=== PATIENT | female | born 1950 | race Caucasian/White ===

== ENCOUNTER 2020-04-14 13:02 | Outpatient (CLI) | payer MEDICARE, SELFPAY ==
--- NOTE | ~2020-04-14 | XR_ITS ---
XR abdomen/kub 1V DATE: 04/14/2020 13:22 INDICATION: Kidney calculus follow-up TECHNIQUE: AP projection, 2 views COMPARISON: 10/13/2019 KUB FINDINGS: There has been interval removal of left internal urinary stent since 10/13/2019. No urinary tract calcifications are evident. There is a moderately prominent amount of fecal material in the colon. No bowel obstruction is eviden t. The psoas shadows are intact. No visceromegaly is detected. Osteopenia. IMPRESSION: Removal of left internal urinary stent; no urinary tract calcifications are evident Reviewed, dictated and finalized at [facility]. Reviewed, dictated and finalized at location A. IMPRESSION: Removal of left internal urinary stent; no urinary tract calcificat ions are evident
== END 2020-04-14 13:03 | disposition home or self-care (01) ==
LOC: ANHIMG 13:14
PROVIDERS: PCP Family Medicine; Visit Provider Urology
DX: N20.0 Calculus of kidney (principal)
CPT/HCPCS: 74018

== ENCOUNTER → 2020-06-24 14:28 | Outpatient (CLI) | payer MEDICARE, OTHER, SELFPAY ==
--- NOTE | ~2020-06-24 | MM_ITS ---
EXAMINATION: MM screening naomi BI w елена HISTORY: Screening TECHNIQUE: Craniocaudal and mediolateral oblique 3-D tomosynthesis images were obtained and synthetic 2-D images were generated. CAD analysis was submitted and interpreted. COMPARISON: Comparison to multiple prior studies sequentially, with oldest reviewed study dated 09/21. BREAST PARENCHYMAL COMPOSITION: There are scattered areas of fibroglandular density. FINDINGS: There is no evidence of suspicious mass, calcification, or architectural distortion to sugg est malignancy in either breast. There has been no suspicious interval change. IMPRESSION: 1. No mammographic evidence of malignancy. 2. Recommend routine screening mammography in one year. BI-RADS Category 1: Negative Reviewed, dictated and finalized at location A.
== END ==
PROVIDERS: PCP Family Medicine; Visit Provider Family Medicine
DX: Z12.31 Encounter for screening mammogram for malignant neoplasm of breast (principal)
CPT/HCPCS: 77063; 77067

== ENCOUNTER 2020-11-09 10:40 | Outpatient (CLI) | payer MEDICARE, SELFPAY ==
--- NOTE | ~2020-11-09 | XR_ITS ---
EXAMINATION: XR abdomen/kub 1V EXAM DATE: 11/09/2020 11:15 INDICATION: Kidney stone. TECHNIQUE: Frontal projection of the upper abdomen, frontal projection lower abdomen/pelvis for inter pretation. Comparison is made to prior examination from 04/14/2020. FINDINGS: There is moderate amount of colonic stool and gas. No small bowel dilation, nonobstructiv e bowel gas pattern. There are no suspicious calcifications identified. There is no organomegaly suspected. There are bony degenerative changes. IMPRESSION: No suspicious calcifications identified. Reviewed, dictated and finalized at location A. /[employer]
== END 2020-11-09 10:41 | disposition home or self-care (01) ==
LOC: ANHIMG 10:46
PROVIDERS: PCP Family Medicine; Visit Provider Urology
DX: N20.0 Calculus of kidney (principal)
CPT/HCPCS: 74018

== ENCOUNTER 2021-12-07 10:16 | Outpatient (CLI) | payer MEDICARE, SELFPAY ==
--- NOTE | ~2021-12-07 | XR_ITS ---
EXAMINATION: XR abdomen/kub 1V INDICATION: Calculus of the kidney TECHNIQUE: Supine views of the abdomen were obtained on 2 radiographs. COMPARISON: 11/09/2020 FINDINGS: No urolithiasis is identified. The bowel gas pattern is normal. There are phleboliths of th e left pelvis. There is mild osteoarthritis of the hips. The bowel gas pattern is normal. IMPRESSION: 1. No urolithiasis identified. Reviewed, dictated and finalized at location A. 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
== END 2021-12-07 10:17 | disposition home or self-care (01) ==
LOC: ANHIMG 10:26
PROVIDERS: PCP Hospitalist; Visit Provider Nurse Practitioner Adult Health
DX: N20.0 Calculus of kidney (principal)
CPT/HCPCS: 74018

== ENCOUNTER 2022-01-09 12:49 | Outpatient (CLI) | payer MEDICARE, SELFPAY ==
--- NOTE | ~2022-01-09 | XR_ITS ---
EXAMINATION: XR abdomen/kub 1V INDICATION: Gross hematuria TECHNIQUE: Supine views of the abdomen were obtained on 2 radiographs. COMPARISON: 12/07/2021 FINDINGS: No urolithiasis is identified. The bowel gas pattern is normal. There are phleboliths of th e pelvis. Mild osteoarthritis is noted in the hips. IMPRESSION: 1. No urolithiasis identified. Reviewed, dictated and finalized at location B.
--- NOTE | ~2022-01-09 | CT_ITS ---
EXAMINATION: CT abdomen pelvis wo/w con DATE: 01/09/2022 13:33 INDICATION: Gross hematuria TECHNIQUE: Computed tomography (CT) of the abdomen and pelvis was performed without and with 130 cc O mnipaque 350 intravenous contrast. The dose-length product was 2700.52 mGy-cm. Automated exposure con trol and iterative reconstruction technique were employed. COMPARISON: CT dated 09/09/2019. FINDINGS: Lung bases are unremarkable. No significant pleural or pericardial effusion. Heart size nor mal. There is moderate atherosclerosis without aneurysm. Fatty infiltration of the liver. The spleen, pancreas are unremarkable. There is nodular thickening o f the adrenal glands with low-density nodules in both adrenal glands, likely benign adenomas, largest in the left measuring 2 x 1.2 centimeters. There are bilateral renal cysts, largest in the right kid trish posteriorly measuring 4.4 cm no abnormally enhancing masses. Ureters are normal in course and sarmad iber. There is small amount of nondependent gas in the bladder, likely from recent instrumentation. N o significant bladder wall thickening. No free air or free fluid. Small fat-containing umbilical quinten ia. No abnormal pelvic masses or fluid collections. Colonic diverticulosis without evidence for diver ticulitis. Gallbladder is present. Mild-moderate lumbar spondylosis with grade 1 degenerative spondyl olisthesis at L4-5. No focal lytic or blastic lesions. IMPRESSION: 1. No findings to account for hematuria. 2: Bilateral renal cysts. Reviewed, dictated and finalized at location A.
[2022-01-09 13:20] LABS: Estimated Glomerular Filt Rate > 60
== END 2022-01-09 12:50 | disposition home or self-care (01) ==
LOC: ANHIMG 12:53
PROVIDERS: PCP Hospitalist; Visit Provider Nurse Practitioner Adult Health
DX: R31.0 Gross hematuria (principal); N28.1 Cyst of kidney, acquired
CPT/HCPCS: 74018; 74178; Q9967

== ENCOUNTER → 2022-02-24 13:15 | Outpatient (CLI) | payer MEDICARE, OTHER, SELFPAY ==
--- NOTE | ~2022-02-24 | MM_ITS ---
EXAMINATION: MM screening naomi BI w елена HISTORY: Screening mammogram TECHNIQUE: Craniocaudal and mediolateral oblique 3-D tomosynthesis images were obtained and synthetic 2-D images were generated. CAD analysis was submitted and interpreted. COMPARISON: 06/24/2020, 07/10/2019, 03/23/2017 bilateral screening mammogram examinations BREAST PARENCHYMAL COMPOSITION: The breasts are almost entirely fatty. FINDINGS: Focal asymmetries are noted in the subareolar areas of the breasts. Otherwise there is no e vidence of suspicious mass, calcification, or architectural distortion to suggest malignancy in eithe r breast. There has been no other suspicious interval change. IMPRESSION: 1. Focal bilateral subareolar asymmetries 2. Diagnostic bilateral mammogram is recommended with ultrasound if required BI-RADS Category 0: Incomplete: Needs additional imaging evaluation. Reviewed, dictated and finalized at location A.
== END ==
PROVIDERS: PCP Obstetrics & Gynecology; Visit Provider Hospitalist
DX: Z12.31 Encounter for screening mammogram for malignant neoplasm of breast (principal); R92.8 Other abnormal and inconclusive findings on diagnostic imaging of breast
CPT/HCPCS: 77063; 77067

== ENCOUNTER → 2022-03-21 09:12 | Outpatient (CLI) | payer MEDICARE, OTHER, SELFPAY ==
--- NOTE | ~2022-03-21 | MM_ITS ---
EXAMINATION: MM diagnostic naomi BI w елена HISTORY: Focal bilateral subareolar mammographic asymmetries reported on 02/24/2022 screening mammogram TECHNIQUE: Additional 3-D tomosynthesis images of both breasts were performed and synthetic 2-D image s were generated. Bilateral rotated medially rotated lateral CC views. CAD analysis was submitted and interpreted. COMPARISON: 02/24/2022, 06/24/2020, 07/10/2018 bilateral screening mammogram examinations FINDINGS: No suspicious mass or architectural distortion, malignant calcification, skin thickening or retraction or significant new or developing density is detected. IMPRESSION: 1. No mammographic evidence of malignancy 2. Routine annual mammographic screening is recommended BI-RADS Category 1: Negative Reviewed, dictated and finalized at location A.
== END ==
PROVIDERS: PCP Hospitalist; Visit Provider Hospitalist
DX: R92.8 Other abnormal and inconclusive findings on diagnostic imaging of breast (principal)
CPT/HCPCS: 77062; 77066; G0279

== ENCOUNTER 2022-08-23 09:00 | Outpatient (CLI) | payer MEDICARE, SELFPAY | END 2022-08-23 09:01 | disposition home or self-care (01) | LOC: ANHAUDIO 09:02 | PROVIDERS: PCP Hospitalist; Visit Provider Hospitalist | DX: Z01.10 Encounter for examination of ears and hearing without abnormal findings (principal) | CPT/HCPCS: 99199 ==

== ENCOUNTER 2022-08-24 01:09 | Day surgery (SDC) | payer MEDICARE, SELFPAY ==
[2022-08-15 10:00] VITALS: BMI 43.9
[2022-08-24 09:43] VITALS: BP 147/67; PULSE 77; RESP 20; TEMP 36.1; O2SAT 96
[2022-08-24] MEDS: LACTATED RINGERS 1,000 ML 150 ML IV CONT (09:52)
--- NOTE | 2022-08-24 10:18 | PM.HPGS ---
History of Present Illness History of Present Illness Consent: Risks, benefits, and alternatives have been discussed and questions answered. Patient agrees to proceed with procedure. Chief complaint: Hx of colon polyps Narrative: Lorna Huntley is a 72 year old female Presents for screening colonoscopy. Patient's current weight appetite and bowel movements are normal. Patient denies abdominal pain. She has had no bleeding. Family history is noncontributory. Patient has a history of adenomatous colon polyp removed from the colon 2014. Patient presents today for neoplasia screening colonoscopy. Review of Systems Review of Systems: Review of systems noncontributory. [facility] Past Medical History Medical History (Updated 08/24/22 @ 10:19 by Inderjit Bledsoe MD) Abscess of right lower extremity Chronic allergic rhinitis Chronic lower back pain Outpatient MRI May 2019 demonstrating mild spondylosis Herpes zoster dermatitis 2008 Morbid obesity Obstructive sleep apnea Polysomnogram 2014 recommended CPAP of 6 Osteopenia after menopause Bone density scan April 2019 Urolithiasis Surgical History Surgical History (Updated 09/10/19 @ 05:29 by Marietta Cotton DO) H/O colonoscopy with polypectomy X4 History of tonsillectomy and adenoidectomy Status post open reduction with internal fixation of fracture Right ankle February 2009 Family History Family History (Updated 09/10/19 @ 05:35 by Marietta Cotton DO) Father , at 94 years old CHF (congestive heart failure) COPD (chronic obstructive pulmonary disease) Mother , at 58 years old Liver cancer Social History Social History (Updated 09/10/19 @ 07:03 by Marietta Cotton DO) Social History: The patient reports that she quit smoking in 2007. She denies any alcohol use or illicit substance use. She has been for 47 years. She has 2 adult children who are healthy. 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 Smoking packs per day: 1.5 Smoking cigarettes per day: 30.0 Years smoked: 40 Smoking pack-years: 60.00 Smoking status: Former smoker Tobacco type: cigarettes Alcohol intake: current Alcohol use details: rarely Substance use: never Substance use type: does not use Living arrangements: with family Gender identity (if verbalized by the patient): Female Spiritual care concerns: No Agree to blood products: No Meds Home Medications and Allergies Home Medications Medication Instructions Recorded Confirmed Type fluticasone furoate 100 2 inh inhalation DAILY 08/15/22 08/24/22 History mcg/actuation blister powder for inhalation (Arnuity Ellipta) oxybutynin chloride 5 mg tablet 10 mg PO TID 08/15/22 08/24/22 History Allergies Allergy/AdvReac Type Severity Reaction Status Date / Time shrimp Allergy Unknown NAUSEA Verified 08/24/22 09:40 Vital Signs Vital Signs - 24 hr 08/24/22 09:43 Temperature 96.9 F L Pulse Rate 77 Respiratory Rate 20 Blood Pressure 147/67 H Pulse Oximetry 96 Oxygen Delivery Room Air Exam Narrative: Physical exam reveals patient be alert. Vital signs stable. HEENT exam is unremarkable. Patient is anicteric. Lungs are clear to auscultation and percussion. Heart is without murmur or extra sounds. Abdomen Is obese. bowel sounds present soft nontender with no organomegaly. Digital external rectal exam is normal. Assessment and Plan Assessment and plan (1) History of colon polyps: Code(s): Z86.010 - Personal history of colonic polyps Status: Acute Assessment and Plan: Patient has a history of colon polyps. Most recently adenomatous colon polyp removed from the colon 2014. Plan for surveillance colon stools under this a 5 year intervals.
--- NOTE | 2022-08-24 11:13 | WPDANESEPPF ---
Anes - Initial Pre Proc Eval Procedure: Operation Date: 08/24/22 10:45 Proposed Procedures p Screening Colonoscopy - Inderjit Bledsoe MD Date/Time: 08/24/22 11:13 Surgeon: Inderjit Bledsoe MD Pre Op Diagnosis: Hx of colon polyps Patient Data Age: 72 Gender: F Height: 1.57 m Weight: 109.6 kg Last Vital Signs Temp 96.9 F L 08/24/22 09:43 Pulse 77 08/24/22 09:43 Resp 20 08/24/22 09:43 BP 147/67 H 08/24/22 09:43 Pulse Ox 96 08/24/22 09:43 O2 Del Method Room Air 08/24/22 09:43 Allergies Allergy/AdvReac Type Severity Reaction Status Date / Time shrimp Allergy Unknown NAUSEA Verified 08/24/22 09:40 Home Medications Medication Instructions Recorded Confirmed Type fluticasone furoate 100 2 inh inhalation DAILY 08/15/22 08/24/22 History mcg/actuation blister powder for inhalation (Arnuity Ellipta) oxybutynin chloride 5 mg tablet 10 mg PO TID 08/15/22 08/24/22 History Patient hx anesthesia problems: none Family hx anesthesia problems: none Results Review: All pre-operative results and documents have been reviewed as part of the pre-operative evaluation. [facility] Past Medical History Medical History (Updated 08/24/22 @ 10:19 by Inderjit Bledsoe MD) Abscess of right lower extremity Chronic allergic rhinitis Chronic lower back pain Outpatient MRI May 2019 demonstrating mild spondylosis Herpes zoster dermatitis 2008 Morbid obesity Obstructive sleep apnea Polysomnogram 2014 recommended CPAP of 6 Osteopenia after menopause Bone density scan April 2019 Urolithiasis Surgical History Surgical History (Updated 09/10/19 @ 05:29 by Marietta Cotton DO) H/O colonoscopy with polypectomy X4 History of tonsillectomy and adenoidectomy Status post open reduction with internal fixation of fracture Right ankle February 2009 Family History Family History (Updated 09/10/19 @ 05:35 by Marietta Cotton DO) Father , at 94 years old CHF (congestive heart failure) COPD (chronic obstructive pulmonary disease) Mother , at 58 years old Liver cancer Social History Social History (Updated 09/10/19 @ 07:03 by Marietta Cotton DO) Social History: The patient reports that she quit smoking in 2007. She denies any alcohol use or illicit substance use. She has been for 47 years. She has 2 adult children who are healthy. 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 Smoking packs per day: 1.5 Smoking cigarettes per day: 30.0 Years smoked: 40 Smoking pack-years: 60.00 Smoking status: Former smoker Tobacco type: cigarettes Alcohol intake: current Alcohol use details: rarely Substance use: never Substance use type: does not use Living arrangements: with family Gender identity (if verbalized by the patient): Female Spiritual care concerns: No Agree to blood products: No Anes - Eval Final PreProcedure Day of Procedure 08/24/22 11:13 Patient weight: morbidly obese Heart: regular rate and rhythm Lungs: clear to auscultation Airway: Mallampati scale class III Neurological: alert and oriented Last oral intake: >/= 8 hours ASA classification: III Emergent: no Anesthetic plan: proceed Anesthesia type and monitoring: general GIVS and standard monitoring Results Review: All pre-operative results and documents have been reviewed as part of the pre-operative evaluation. Informed Consent: The patient's anesthetic plan and its attendant risks and benefits were discussed with the patient/family/POA. Questions were solicited and answers provided to the satisfaction of the patient/family/POA.
[2022-08-24 11:28] VITALS: BP 143/103; PULSE 76; RESP 20; O2SAT 95
[2022-08-24 11:38] VITALS: BP 146/71; PULSE 76; RESP 20; O2SAT 96
[2022-08-24 11:48] VITALS: BP 141/71; PULSE 70; RESP 20; O2SAT 97
== END 2022-08-24 11:52 | disposition home or self-care (01) ==
PROVIDERS: PCP Hospitalist; Visit Provider Internal Medicine Gastroenterology
PROC: 0DJD8ZZ Inspection of Lower Intestinal Tract, Via Natural or Artificial Opening Endoscopic (ICD-10-PCS; CPT 45378; principal; 2022-08-24 10:45)
DX: Z12.11 Encounter for screening for malignant neoplasm of colon (principal); Z86.010 Personal history of colon polyps; K57.30 Diverticulosis of large intestine without perforation or abscess without bleeding; K64.8 Other hemorrhoids; E66.01 Morbid (severe) obesity due to excess calories; Z68.41 Body mass index [BMI] 40.0-44.9, adult; G47.33 Obstructive sleep apnea (adult) (pediatric); Z87.891 Personal history of nicotine dependence
CPT/HCPCS: G0105; J2704; J7120

== ENCOUNTER 2022-09-25 08:53 | Outpatient (CLI) | payer MEDICARE, SELFPAY | END 2022-09-25 08:54 | disposition home or self-care (01) | LOC: ANHAUDIO 08:54 | PROVIDERS: PCP Hospitalist; Visit Provider Hospitalist | DX: Z01.10 Encounter for examination of ears and hearing without abnormal findings (principal) | CPT/HCPCS: 92557; 92567 ==

== ENCOUNTER 2024-07-17 10:15 | Outpatient (RCR) | payer MEDICARE, SELFPAY ==
--- NOTE | 2024-05-14 09:58 | OPREHPOC ---
Outpatient Therapy Plan of Care This is a Multidisciplinary Plan of Care that may contain components documented by all disciplines (PT, OT, and ST.) PT Problem 1 PT Problem #1 Knowledge Deficit PT Goal 1 Goal Pt to be IND with issues HEP Target Visit 10 PT Problem 2 PT Problem #2 Pain PT Goal 1 Goal Pt to report hip/back pain no greater than 3/10 in the last week. Target Visit 10 PT Goal 2 Goal Pt to report 75% improvement in overall symptoms. Target Visit 10 PT Problem 3 PT Problem #3 Impaired Strength PT Goal 1 Goal Pt to improve hip abduction strength to 4/5 brandin. Target Visit 10 PT Goal 2 Goal Pt to ambulate with neutral pelvic alignment. Target Visit 10 PT Problem 4 PT Problem #4 Impaired Strength PT Goal 1 Goal Pt to improve 5xSTS from 19s to 15s.
--- NOTE | 2024-05-14 09:59 | PTOPEVAL1 ---
Assessment and note entered by Radha Travis, PT, DPT Evaluation Information Assessment Status Evaluation Diagnosis L hip trochanteric bursitis, low back pain ICD-10 Condition Codes (PT) Pain in low back M54.50,Pain in left hip M25.552 Onset gradual on the last couple of years, worse in the last year Subjective Information Pt states she has fluctuating pain, from mid back down to her feet at times. She states sometimes she can move well and at other times she has a difficulty moving at all. Her biggest complaints are having difficulty lifting her legs into the car, doing stairs, and walking through the grocery store. She states sitting or laying down takes her pain away. Pt states she is fairly sedentary. Reported Pain Level Pain Score 0: Self Report Assessment PT Clinical Summary Lorna presents to therapy today for her initial evaluation with a diagnosis of L hip bursitis and low back pain. Today she demonstrates good hip ROM with decreased hip strength brandin L>R. She ambulates with an uncompensated Trendelenburg pattern and an increase heel strike on the R. Pain and weakness has limited her mobility. Skilled therapy services are indicated to address the deficits noted above, manage pain, and to improve functional mobility. Plan of Care Interventions Electrical Stimulation,Gait Training,Hot Pack/Cold Pack,Manual Therapy,Neuro Re-education,Patient/ Caregiver Educati,Therapeutic Activities, Therapeutic Exercise PT Services Indicated Yes Treatment Frequency and 2x/wk for 10 visits Duration These treatments will address the objective and functional deficits as defined above. The patient will be advanced safely and appropriately in order for the patient to progress towards his/her prior level of function. Additional exercises will be introduced and as well as a comprehensive home exercise program upon discharge, if needed, ?to ensure carryover of functional gains achieved in the clinic. This treatment plan has been reviewed and agreement upon by the patient.
--- NOTE | 2024-05-28 07:57 | PCPTNOTE ---
Patient called & cancelled scheduled appointment this date, she did not give a reason why.
--- NOTE | 2024-06-11 09:53 | PCPTNOTE ---
Patient was canceled 06/04/24 due to therapist out with illness.
--- NOTE | 2024-06-11 09:58 | PCPTNOTE ---
Patient was canceled 06/06/24 due to therapist out with illness.
--- NOTE | 2024-06-18 14:17 | PCPTNOTE ---
Patient called & cancelled scheduled appointment this date due to going out of town.
--- NOTE | 2024-07-17 14:28 | PTOPDC ---
Assessment and note entered by Radha Travis, PT, DPT Evaluation Information Assessment Status Progress Diagnosis L hip trochanteric bursitis, low back pain ICD-10 Condition Codes (PT) Pain in low back M54.50,Pain in left hip M25.552 Onset gradual on the last couple of years, worse in the last year Subjective Information Pt states for a while she was doing better, it feels like she has regressed some but not back to where she started. She states since then life has been really hectic and she has been doing her exercises less, her pain has since increased. Her hips feel better since starting, she feels like she has better ROM, her back is a little better but not pain free. She states her has to have major surgery without any assist from family. She states she would like exercises to work on while she cannot leave the house. Reported Pain Level Pain Score 4: Self Report Assessment PT Clinical Summary Pt has completed 9 visits of skilled therapy to treat her low back and hip pain. She is making progress towards her therapy goals. Pts HEP was updated today. She has elected to continue her HEP and wishes to be d/c'ed at this time as her is having a surgery. Pt was educated to continue her HEP. It was recommended pt continue therapy, plans to return in a couple of months.
== END 2024-07-17 15:29 | disposition home or self-care (01) ==
LOC: ANHGOSHPT 10:15
PROVIDERS: PCP Family Medicine Sports Medicine; Visit Provider Orthopaedic Surgery
DX: M70.62 Trochanteric bursitis, left hip (principal); M47.816 Spondylosis without myelopathy or radiculopathy, lumbar region
CPT/HCPCS: 97110; 97112; 97140; 97161; 97530

== ENCOUNTER 2025-03-02 22:53 | Inpatient (IN) | payer MEDICARE, SELFPAY ==
--- NOTE | ~2025-03-02 | XR_ITS ---
EXAMINATION: XR retrograde pyelo w/stent RT DATE: 03/04/2025 12:35 INDICATION: Right internal ureteral stent placement TECHNIQUE: Fluoroscopic images from a right internal ureteral stent placement are submitted for rubi chapman 21 seconds of fluoroscopy time. FINDINGS: There is a right double-J internal ureteral stent projecting in expected position, with proximal [place] loop at the level of the renal pelvis and distal loop in the pelvis within the bladder lumen. IMPRESSION: 1. Right internal ureteral stent placement. Please refer to real-time procedural findings for detai ls. Reviewed, dictated and finalized at location A. IMPRESSION: 1. Right internal ureteral stent placement. Please refer to real-time procedu ral findings for details.
--- NOTE | ~2025-03-02 | CT_ITS ---
EXAMINATION: CT abdomen pelvis wo con DATE: 03/05/2025 10:19 INDICATION: Renal stent placement TECHNIQUE: Computed tomography (CT) of the abdomen and pelvis was performed without intravenous contr ast. Automated exposure control and iterative reconstruction technique were employed. The dose-length product was 975.98 mGy-cm. COMPARISON: 03/02/2025 FINDINGS: Mild bibasilar atelectasis. Heart size is normal. Atherosclerotic coronary artery calcific location. No pericardial or pleural effusion. Liver, spleen and gallbladder are normal. Moderate fatty atrophy of the pancreas with small dystrophic calcification at the tail the pancreas likely sequela of chroni c pancreatitis. Bilateral low-attenuation adrenal adenomas. Bilateral renal cysts the largest at the upper pole the right kidney measuring 3.9 cm. 6 mm hypodense likely proteinaceous/hemorrhagic cyst at the upper pole of the right kidney. Bilateral nonobstructing nephrolithiasis with 2 stones in the ri ght kidney the largest measuring up to 5 mm in the lower pole and with additional 2 mm stone at the u pper pole the right kidney and 3 mm stone at the peripheral the left kidney. Right internal ureteral stent with loops formed in the right renal pelvis and in the bladder. No stones in the right ureter. No hydronephrosis. There is moderate colonic diverticulosis with a sigmoid predominance and without a djacent inflammatory change to suggest diverticulitis. Small bowel and appendix are normal. Bladder i s unremarkable. Anteverted uterus is normal. No free intraperitoneal gas or fluid. No pathologically enlarged abdominal or pelvic lymphadenopathy. Small fat-containing umbilical hernia. Mild thoracolumb ar dextrocurvature with moderate spondylosis. IMPRESSION: 1. Bilateral nonobstructing nephrolithiasis with no hydronephrosis or ureteral stones along side a ri ght internal ureteral stent which is in expected position. Reviewed, dictated and finalized at location A. IMPRESSION: 1. Bilateral nonobstructing nephrolithiasis with no hydronephrosis or ureteral stones along side a right internal ureteral stent which is in expected position .
--- NOTE | ~2025-03-02 | XR_ITS ---
Supine and upright views of the abdomen Clinical history: Right UPJ stone Findings: Bowel gas pattern is nonspecific. No evidence for obstruction or free air. Probable small r ight lower pole renal stone. Osseous structures are intact. Impression: Small right lower pole renal stone. Reviewed, dictated and finalized at location . Impression: Small right lower pole renal stone.
--- NOTE | ~2025-03-02 | XR_ITS ---
XR abdomen/kub 1V 03/05/2025 10:23 Indication: Renal stent placement Procedure: KUB Comparison: 03/03/2024 Findings: There is a 3 mm right renal stone in the lower pole. There is a right internal ureteral ileana nt in expected position. Bowel gas pattern nonobstructive. Moderate colonic fecal loading. There are pelvic phleboliths. No calcifications are identified in the expected course of ureter. Moderate lumba r spondylosis with dextroscoliosis. No acute osseous abnormality. Impression: 1: Right nephrolithiasis. Reviewed, dictated and finalized at location A. Impression: 1: Right nephrolithiasis.
--- NOTE | ~2025-03-02 | CT_ITS ---
EXAMINATION: CT abdomen pelvis wo con DATE: 03/02/2025 23:47 INDICATION: R flank pain, hx stones TECHNIQUE: Computed tomography (CT) of the abdomen and pelvis was performed without intravenous contr ast. Automated exposure control and iterative reconstruction technique were employed. The dose-length product was 1522.01 mGy-cm. COMPARISON: 01/09/2022. FINDINGS: Lower thorax: Mild bibasilar scar/atelectasis. Coronary artery calcifications. Liver: Normal. Biliary/Gallbladder: Gallbladder is normal. No bile duct dilation. Pancreas: Partial fatty replacement. Spleen: Normal. Adrenals:Bilateral adrenal adenomas Kidneys: Multiple simple bilateral renal cysts. Punctate nonobstructing left renal calcifications. No left hydronephrosis. Mild right pelviectasis and caliectasis. 6 cm calcification in the right UPJ. A dditional nonobstructing punctate right-sided calcifications are also present. GI tract: Small hiatal hernia. No small or large bowel dilation. Normal appendix. Diverticulosis with out diverticulitis. Mesentery/Peritoneum: No ascites, mass, or free air. Retroperitoneum: No mass. Atherosclerotic calcifications of intra-abdominal arterial vessels. Pelvis: Pelvic organs are within normal limits. Soft Tissues: Small fat-containing uncomplicated appearing umbilical hernia. Bones: No acute osseous finding. IMPRESSION: 6 mm stone at the right UPJ causing mild obstructive uropathy. Reviewed, dictated and finalized at location K.
--- OUTSIDE RECORDS SUMMARY | 2025-03-02 22:55 | XMS_ITS | Clinical Summary ---
Author Organization [facility] [place] Address [address] [place] [address] Care Team Providers Care Phlebotomy Director Name Role Phone Mary Sharpe NP Primary Care Provider Adelina Mac MD Unavailable Dagoberto Carmona MD Unavailable [phone] Allergies Active Allergy Reactions Criticality Noted Date Comments Shellfish Containing Products Vomiting Low 2020 Shrimp Allergy Medications UNABLE TO FIND Take 1 each by mouth daily Med Name: Tumeric Active levocetirizine (XYZAL) 5 mg tablet Take 1 tablet (5 mg total) by mouth every evening Active fluticasone propionate (FLONASE) 50 mcg/actuation nasal spray Administer 2 sprays into each nostril daily 3 each 4 5 Active oxyBUTYnin XL (DITROPAN XL) 15 mg 24 hr tablet Take 1 tablet (15 mg total) by mouth daily 90 tablet 1 5 Active fluticasone furoate (ARNUITY) 200 mcg/actuation inhalerIndicati ons:Maintenance Therapy for Asthma Inhale 1 puff daily Rinse mouth with water after use. Do not swallow. 30 each 1 5 Active albuterol HFA (PROVENTIL HFA,VENTOLIN HFA,PROAIR HFA) 90 mcg/actuation inhaler Inhale 2 puffs every 6 (six) hours as needed for wheezing 1 each 4 5 11/25/19 26 Active nystatin creamIndication s:Intertrigo Apply topically 2 (two) times a day To rash between breast and base of scalp 30 g 1 4 02/22/20 25 Active Problems Problem Noted Date Diagnosed Date Slow transit constipation 11/25/2024 Assessment & Plan (11/25/2024 11:00 AM MECHANICAL ENGINEERING TECHNICIAN): Improved with otc magnesium daily. Continue magnesium Closed fracture of left distal tibia 02/22/2024 Assessment & Plan (02/22/2024 8:30 PM CDT): Healed clinically. Wean out of boot. Offered PT referral but deferred. monitor Senile osteopenia 01/24/2024 Assessment & Plan (02/22/2024 8:28 PM CDT): Chronic. Encouraged weightbearing exercise as able, will be due for DEXA> pt to let me know when due for next mammo and will order dexa to be done at same time Assessment & Plan (01/24/2024 12:41 PM CDT): Noted on bone density in 2019. We will plan to consider updated bone density in the future if has not had recently MIKE (obstructive sleep apnea) 08/28/2023 Overview (11/25/2024): Had testing, but then life happened and she never followed up Assessment & Plan (02/22/2024 8:28 PM CDT): Monitor. If symptoms occur, then get back in with sleep medicine to get treated Assessment & Plan (08/28/2023 3:37 PM MECHANICAL ENGINEERING TECHNICIAN): Can only sleep for about 4 hours and wakes for bladder; feels she sleeps more than she should, wakes up with headaches and takes afternoon naps Encouraged patient to continue with biphasic sleep schedule; will refer to sleep Medicine for morning headaches which may be consistent with sleep apnea Urge incontinence of urine 09/05/2021 Assessment & Plan (11/25/2024 10:59 AM MECHANICAL ENGINEERING TECHNICIAN): Stable. Followed by urologist - Dr. Carmona, - on oxybutynin xl Assessment & Plan (02/22/2024 8:27 PM CDT): Chronic. Controlled. Occasional stress leakage. Continue oxybutynin Assessment & Plan (08/28/2023 3:37 PM MECHANICAL ENGINEERING TECHNICIAN): Goes to the bathroom every 4 hours; previously treated for chronic UTI and cystitis which has improved her symptoms Assessment & Plan (01/30/2022 9:17 AM CDT): Patient reports general UTI symptoms common causing increased urge; mild incontinence with small amounts of visual blood on wiping Continue oxybutynin 10 mg daily; continues to follow with Urology for evaluation and management Assessment & Plan (09/05/2021 4:30 PM MECHANICAL ENGINEERING TECHNICIAN): Stable, well controlled Continue oxybutynin 10 mg daily Mild persistent asthma without complication 06/2021 Assessment & Plan (11/25/2024 11:11 AM MECHANICAL ENGINEERING TECHNICIAN): Restart flonase. Will try a different inhaler. Problem is cost of preventative inhaler. She was given arnuity. Will try advair/ wixela. Assessment & Plan (02/22/2024 8:27 PM CDT): Chronic. Controlled. Uses Arnuity seasonally when allergies causes to flare. Monitor. Continue prn albuterol Assessment & Plan (08/28/2023 3:37 PM MECHANICAL ENGINEERING TECHNICIAN): Stable, well controlled; rare use of inhaler Continue albuterol p.r.n. Assessment & Plan (01/02/2023 3:44 PM CDT): Patient reports limited albuterol p.r.n.; unclear if cough is due to asthma versus postnasal drip Continue Astelin; reassess after evaluation of sinus disease Assessment & Plan (07/18/2022 12:52 PM CDT): Has some sensation of inflammation substernal region, brief pain and discomfort, rare use of dyspnea, uses inhaler as needed No significant chest pain Assessment & Plan (01/30/2022 9:18 AM CDT): Stable, well controlled; continue Arnuity 1 puff daily Assessment & Plan (09/05/2021 4:28 PM MECHANICAL ENGINEERING TECHNICIAN): Stable, well controlled; symptoms improved with use of fluticasone inhaler; patient had issues with insurance Will switch to Flovent 110 mcg, 1 puff b.i.d. Assessment & Plan (06/30/2021 4:28 PM CDT): Patient is regular use of albuterol inhaler; endorses use of albuterol as well as frequent episodes of dyspnea Will start fluticasone daily inhaler for control, encouraged patient to rinse mouth out after use Morbid obesity with BMI of 40.0-44.9, adult ([facility]) 08/18/2019 Assessment & Plan (11/26/2024 9:20 PM MECHANICAL ENGINEERING TECHNICIAN): BMI Follow-up includes: education provided. Assessment & Plan (02/22/2024 8:29 PM CDT): Chronic. Suboptimally controlled. Slowly get back into exercising as able not that ankle better. Watch diet. monitor Assessment & Plan (08/28/2023 3:37 PM MECHANICAL ENGINEERING TECHNICIAN): Stable, working on meal replacement; eats light breakfast, limits portions at dinner Limited exercise; has been using new shoes which improved ability to walk with limiting pain Encouraged continued activity, targeting 30 minutes moderate intensity exercise 5 days per week Assessment & Plan (01/02/2023 3:43 PM CDT): Not well controlled, no significant weight loss Weight is stable from prior Continue to encourage work towards weight loss through dietary changes to reduce caloric intake through portion control, and 30 minutes moderate intensity exercise 5 days per week Assessment & Plan (09/12/2022 3:25 PM MECHANICAL ENGINEERING TECHNICIAN): Not well controlled, recent increase in weight Patient reports no significant changes, but has been going on home more Encouraged patient continue to work on home cooked meals, including fresh fruits, vegetables and whole foods Assessment & Plan (07/18/2022 12:53 PM CDT): Weight has been stable, some work on dietary changes, but limited exercise Assessment & Plan (01/30/2022 9:17 AM CDT): Stable, improving; patient has been working on small changes to help with overall weight; focusing on portions and reducing carbohydrates at this time Has lost about 8 lb since July 12 Continue to monitor; encourage small consistent changes Assessment & Plan (09/05/2021 4:29 PM MECHANICAL ENGINEERING TECHNICIAN): Stable, not well controlled; weight is stable, with approximately 3 lb weight loss since last visit Patient has begun to work on her weight, going to focus on portion control and healthy dietary choices using [employer] plate to limit portions, healthy cooking at home Continue to monitor and encourage dietary changes and general activity for overall health Assessment & Plan (06/30/2021 4:27 PM CDT): Stable, not well controlled Encouraged diet and exercise, reducing calorie intake through portion control and avoiding high-calorie foods; encourage activity of at least 30 minutes per day 5 days per week Assessment & Plan (08/18/2019 8:53 AM CDT): Discussed diet/exercise. Need to be consistently on-track with both to note improvement. There are medications available but need to change lifestyle for habits to improve and stay once medications are completed. Discussed diet/exercise at length. Aware that there is no 'magic pill' to lose weight. Need to change up exercise, try weight lifiting to boost metabolism. Try to change to 5-6 small meals/day to not become hungry & make poor food choices. Fitness apps, fitness/step trackers, etc available. Vitamin D deficiency 11/07/2016 Overview (01/25/2017): Vitamin D deficiency Resolved Problems Problem Noted Date Diagnosed Date Resolved Date Bilateral foot pain 07/18/2022 02/22/20 24 Assessment & Plan (07/18/2022 12:50 PM CDT): Continues to have chronic pain in both feet; limited relief with chondroitin Has pain which limits will long-term walking, including walking to stool or S Continues use orthotics Has burning sensations at MTP joints Recommend follow-up with podiatry for further evaluation and treatments Sleep disorder 06/30/2021 02/22/2024 Assessment & Plan (01/02/2023 3:45 PM CDT): Sleep study performed in 2014; patient reports she did not start CPAP due to Medicare not covering machine at that time Requires afternoon nap; patient reports does not witnessed snoring or apnea Normally sleeps on side EPS SSA Will continue to monitor and refer to Sleep Medicine p.r.n. Assessment & Plan (09/05/2021 4:29 PM MECHANICAL ENGINEERING TECHNICIAN): Improved quality sleep, is able to reinitiate sleep after waking up for bathroom Assessment & Plan (06/30/2021 4:29 PM CDT): Patient has interrupted sleep, wakes early in the morning in annual to fall back asleep; has often afternoon naps of up to 2 hours Encouraged patient to work on sleep hygiene as well as eliminating afternoon nap Patient given behavioral and self strategies to help reduce disordered sleeping, if no improvement will evaluate referral to sleep clinic Shortness of breath 08/18/2019 01/24/20 24 Assessment & Plan (08/18/2019 10:47 AM CDT): NEG EKG in office. No prior EKGs to compare. Agreeable to treadmill stress test. [facility] scheduling # given to Mrs Huntley for her to call to set up test. Labs ordered & will contact w/those results once rec'd also. Reviewed red flags; what would warrant ED for more emergent eval. Encounter for screening for lipoid disorders 9 01/24/2024 Assessment & Plan (08/18/2019 10:38 AM CDT): Lipid panel ordered; will call w/results when received. Reviewed diet/exercise recommendations. Chest tightness 08/18/2019 01/24/2024 Assessment & Plan (06/30/2021 4:27 PM CDT): Stable, has some dyspnea and chest pain on exertion; previously had has had symptoms with normal stress test Will continue to monitor, treat for possible undertreated asthma; the patient does not respond to therapy, will consider further cardiac testing if necessary Assessment & Plan (08/18/2019 10:47 AM CDT): NEG EKG in office. No prior EKGs to compare. Agreeable to treadmill stress test. [facility] scheduling # given to Mrs Huntley for her to call to set up test. Labs ordered & will contact w/those results once rec'd also. Reviewed red flags; what would warrant ED for more emergent eval. Chronic maxillary sinusitis 11/07/2016 01/24/2024 Overview (01/25/2017): Chronic maxillary sinusitis Assessment & Plan (01/02/2023 3:43 PM CDT): Continues have significant postnasal drip with coughing; some limited relief with Astelin Feels congested has difficulty breathing mostly time Will get CT sinuses Assessment & Plan (09/12/2022 3:25 PM MECHANICAL ENGINEERING TECHNICIAN): Stable, well controlled Continue Astelin 1 spray each nostril b.i.d. Assessment & Plan (07/18/2022 12:50 PM CDT): Continues to have significant postnasal drip, phlegm Limited relief with Flonase; has morning headaches, pain and frontal sinuses, sometimes lasting to evening No fevers or chills Will start Astelin nasal spray 1 spray b.i.d. Placed on response, would refer to ENT for further evaluation needed Shoulder pain 12/31/2015 01/24/2024 Overview (01/25/2017): Left anterior shoulder pain Assessment & Plan (07/18/2022 12:51 PM CDT): Continues to have aching and stabbing pains, in shoulders as well as muscles; present from shoulder elbow; may be bilateral biceps tendinitis Will refer to physical therapy for further evaluation and treatment Thumb pain 12/31/2015 02/22/2024 Overview (01/25/2017): Pain of left thumb Herpes zoster 02/13/2015 02/22/2024 Overview (01/25/2017): Herpes zoster Immunizations Immunization Administration Dates Next Due COVID-19 MRNA (MODERNA) .5 M L (50 MCG) VACCINE (12 YEARS AND UP) 10/17/2023 Influenza LAIV (Nasal) 07/22/2013 Influenza, Quadrivalent, Hig h Dose, Preservative Free, Intrr 2023,08/14/2022,09/05/2021 Influenza, Quadrivalent, Spl it, Preservative Free, Intramuscular 11/07/2016 Influenza, Trivalent, High D ose, Split, Preservative Free, Intramuscular 07/29/2020 Influenza, Unspecified 07/29/2020,2019(Deferred: Patient Refused),10/22/2018(Deferred: Patient Refused),06/14/2018(Deferred: Patient Refused),10/29/2017(Deferred: Patient Refused) Moderna SARS-CoV-2 Monovalen t Vaccination (12+ YRS) 10/17/2023,12/21/2020,11/18/2020 Pfizer SARS-CoV-2 Monovalent Vaccination (12+ Yrs) MARTIN-READY TO USE 03/15/2022 Pfizer SARS-CoV-2 Monovalent Vaccination (12+ Yrs) PURPLE 09/12/2021 Pfizer SARS-CoV-2 Monovalent Vaccination (5-11 Yrs) 03/15/2022,09/12/2021,12/21/2020,11/18 Pfizer Sars-Cov-2 Bivalent V accination (12+ YRS) 09/13/2022 Pneumococcal Conjugate PCV 13 11/07/2016 Pneumococcal Polysaccharide PPV23 06/14/2018 ZOSTER LIVE 01/21/2016 Surgical History Surgery Date Site/Laterality Comments LITHOTRIPSY 10/22/2018 - 10/21/2019 TONSILLECTOMY/ADENOIDECTOMY ANKLE SURGERY Right Fx repair Medical History Medical History Date Comments Hx Other Medical 02/13/2015 herpes zoster; Comments: GRAY 03/25/2015 - Kidney stone 2019 Chickenpox Herpes zoster 02/13/2015 Herpes zoster Asthma OAB (overactive bladder) Spinal stenosis Family History Medical History Relation Name Comments AVM Daughter Brain Aneurysm Daughter Heart failure Father Congestive hea rt failure; Other Father's Sister 2 anemia, [place] PD; Liver cancer Mother brain tumor Mother pituatary tumor Colon cancer Neg Hx Relation Name Status Comments Daughter Other Father Father's Sister 1 Alive Father's Sister 2 Mother Social History Tobacco Use Types Packs/Day Years Used Date Smoking Tobacco: Former Cigarettes 1.5 37 1 972 - 2008 Smokeless Tobacco: Never Tobacco Cessation:Counseling Given: Not Answered Alcohol Use Standard Drinks/Week Comments No 0 (1 standard drink = 0.6 oz pur e alcohol) AUDIT-C Answer Date Recorded Q1: How often do you have a drink containing alc ohol? Monthly or less 06/30/2021 Q2: How many drinks containi ng alcohol do you have on a typical day when you are drinking? 1 or 2 06/30/2021 Q3: How often do you have si x or more drinks on one occasion? Never 06/30/2021 PHQ-2 Answer Date Recorded PHQ-2 Total Score (If total score is 3 or more points, staff should administer the PHQ-9) 1 11/25/2024 Comments Unknown Sex and Gender Information Value Date Recorded Sex Assigned at Not on file Legal Sex Female 6:33 AM MECHANICAL ENGINEERING TECHNICIAN Gender Identity Not on file Sexual Orientation Not on file Obstetrics History Last Filed Vital Signs Vital Sign Reading Time Taken Comments Blood Pressure 130/82 11/25/2024 10:45 AM MECHANICAL ENGINEERING TECHNICIAN Pulse 67 11/25/2024 10:45 AM MECHANICAL ENGINEERING TECHNICIAN Temperature 36.4 C (97.6 F) 11/25/2024 10:45 AM MECHANICAL ENGINEERING TECHNICIAN Respiratory Rate 18 11/25/2024 10:4 5 AM MECHANICAL ENGINEERING TECHNICIAN Oxygen Saturation 93% 12/26/2023 2:13 PM MECHANICAL ENGINEERING TECHNICIAN Inhaled Oxygen Concentration - - Weight 106.4 kg (234 lb 9.6 oz) 025 10:45 AM MECHANICAL ENGINEERING TECHNICIAN Height 156.2 cm (5' 1.5 ) 11/25/2024 10 :45 AM MECHANICAL ENGINEERING TECHNICIAN Body Mass Index 43.61 11/25/2024 10:45 AM MECHANICAL ENGINEERING TECHNICIAN Plan of Treatment Health Maintenance Due Date Last Done Comments DTaP/Tdap/Td Vaccine (1 - Tdap) 1961 Zoster Vaccine (2 of 3) 03/17/2016 01/21/2016 Osteoporosis Screening-Bone Density Scan 05/12/2021 05/12/2019 Covid-19 Vaccine (7 - 2023-2 5 season) 2024 10/17/2023, 10/17/2023, 09/13/2022, Additional history exists Well Visit 65+ 2024 2023, 07/10/2022 Influenza Vaccine (Season Ended) 2025 2023, 08/14/2022, 09/05/2021, Additional history exists Depression Screening 11/25/2025 11/25/2024, 2023, 08/28/2022, Additional history exists Fall Risk Assessment 11/25/2025 11/25/2024, 2023, 01/01/2023, Additional history exists Pneumococcal vaccine 65+ Completed 06/14/2018, 10/22 Hepatitis C Screening Completed 06/30/2021 Breast Cancer Screening-Mammogram Discontinued 03/21/2022, 02/24/2022, 06/24/2020, Additional history exists Colon Cancer Screening-CT Colonography Discontinued 08/24/2022, 07/01/2015, 10/22/2014, Additional history exists Colon Cancer Screening-Colonoscopy Discontinued 08/24/2022, 07/01/2015, 10/22/2014, Additional history exists Colon Cancer Screening-DNA Stool Discontinued 08/24/2022, 07/01/2015, 10/22/2014, Additional history exists Colon Cancer Screening-FIT Discontinued 08/24, 07/01/2015, 10/22/2014, Additional history exists Colon Cancer Screening-FOBT Discontinued 12/2021, 07/01/2015, 10/22/2014, Additional history exists Colon Cancer Screening-Sigmoidoscopy Discontinued 08/24/2022, 07/01/2015, 10/22/2014, Additional history exists Colorectal Cancer Screening Discontinued Hepatitis B Screening Discontinued Procedures Procedure Name Priority Date/Time Associated Diagnosis Comments HM COLONOSCOPY Routine 08/24/2022 DIAGNOSTIC MAMMOGRAM BILATERAL W FERDINAND Schedule Routine, Read Routine (OP Routine) 03/21/2022 Abnormal mammogram of both breasts HEPATITIS C ANTIBODY Routine 06/30/2021 10:22 AM CDT Annual physical exam from Last 3 Months or Most Recently Relevant to Health Maintenance Results * HM COLONOSCOPY (08/24/2022) Historical Provider MD HEALTH MAINTENANCE Final Result * DIAGNOSTIC MAMMOGRAM BILATERAL W FERDINAND (03/21/2022) Anatomical Region Laterality Modality Breast Bilateral Mammography Evens Powell MD IMG MAMMO PROCEDURES Casandra l Result * Hepatitis C antibody (06/30/2021 10:22 AM CDT) Hep C Ab Nonreactive Nonreactive [facility] Comment: Interpretive Data Nonreactive: Antibodies to HCV not detected. Does NOT exclude the possibility of recent exposure to HCV. Equivocal: Equivocal for HCV antibodies. Supplemental molecular testing will be automatically performed to determine infection status in accordance with current CDC screening recommendations. Reactive: Positive for HCV antibodies. This may represent current or past HCV infection. Supplemental molecular testing will be automatically performed to determine current infection status in accordance with current CDC screening recommendations. Interpretive data was last revised on 2020. Blood 06/30/2021 10:2 2 AM CDT 06/30/2021 4:08 PM CDT Evens Powell MD LAB MICROBIOLOGY - GENERA L ORDERABLES Final Result [facility] [id number] Department [place] [address] from Last 3 Months or Most Recently Relevant to Health Maintenance Insurance MEDICARE [employer] MEDICARE SUPPLEMENT INSURANCE SALLY HARTMAN [id number] [employer]ICARE [employer] MEDICARE SUPPLEMENT INSURANCE SALLY HARTMAN [id number] Care Teams Phlebotomy Director Relationship Specialty Start Date End Date Mary Sharpe NP [address] [facility] [address] [place] [address] PCP - General Family Medicine 11/25/24 Adelina Mac MD [address] [place] [address] Referring Physician Dermatology 11/25/24 Dagoberto Carmona MD [address] [place], [place] [id number] Consulting Physician Urology 11/25/24
--- OUTSIDE RECORDS SUMMARY | 2025-03-02 22:56 | XMS_ITS | Clinical Summary ---
Author Organization [facility] Administrative Offices Address [address] [place] [id number] Care Team Providers Care Knock Out Hand Name Role Phone Pawel Hendersno MD Primary Care Provider [phone] Allergies No known active allergies Medications CALCIUM CARBONATE/VITAMI N D3 (CALCIUM + D ORAL) Take 2 Tabs by mouth daily. 06/22/2011 Active Active Problems Problem Noted Date Diagnosed Date Obesity, morbid (more than 1 00 lbs over ideal weight or BMI > 40) Social History Tobacco Use Types Packs/Day Years Used Date Smoking Tobacco: Former Cigarettes 1 35 0 10/22/1972 - 10/22/2007 Comments Unknown Sex and Gender Information Value Date Recorded Sex Assigned at Not on file Legal Sex Female 6:03 AM SENIOR BI ARCHITECT Gender Identity Not on file Sexual Orientation Not on file Last Filed Vital Signs Vital Sign Reading Time Taken Comments Blood Pressure 115/65 06/22/2011 11:07 AM CDT Pulse 77 06/22/2011 11:07 AM CDT Temperature 36.3 C (97.3 F) 06/22/2011 10:55 AM CDT Respiratory Rate 20 06/22/2011 11:07 AM CDT Oxygen Saturation 96% 06/22/2011 11:07 AM CDT Inhaled Oxygen Concentration - - Weight 99.8 kg (220 lb) 06/22/2011 9:46 AM CDT Height 157.5 cm (5' 2 ) 06/22/2011 9:46 AM CDT Body Mass Index 40.24 06/22/2011 9:46 AM CDT Plan of Treatment Health Maintenance Due Date Last Done Comments DTAP/TDAP/TD VACCINES (1 - Tdap) 1969 PNEUMOCOCCAL VACCINE 50+ YEARS (1 of 1 - PCV) 08/20/19 98 ZOSTER VACCINE (1 of 2) 1998 OSTEOPOROSIS SCREENING 2013 RSV VACCINE (60+ or ) (1 - 1-dose 75+ series) 2023 INFLUENZA VACCINE (#1) 2024 COLORECTAL SCREENING Discontinued 06/22/2011 Colorectal Cancer Screening Discontinued FIT-DNA Q 3 years Discontinued FIT/FOBT Q 1 year Discontinued Flex Sig/CT Colonography Q 5 years Discontinued Advance Directives For more information, please contact: [phone] * Full Code (Latest Code Status on File) Date Activated Date Inactivated Comments 06/22/2011 9:46 AM 06/23/2011 2:32 AM Care Teams Knock Out Hand Relationship Specialty Start Date End Date Pawel Henderson MD PCP - General Family Practice 06/12/11
--- OUTSIDE RECORDS SUMMARY | 2025-03-02 22:56 | XMS_ITS | Referral Summary ---
Author Organization [facility] lt Address [address] [place] [address] Care Team Providers Care Pattern Technician Name Role Phone Mary Sharpe NP Primary Care Provider [phone] Adelina Mac MD Unavailable [phone] Dagoberto Carmona MD Unavailable [phone] Allergies Active Allergy Reactions Criticality Noted [...] 11/25/2024 Assessment & Plan (11/25/2024 11:00 AM NURSE CLINICAL): Improved with otc magnesium daily. Continue magnesium [...] treated Assessment & Plan (08/28/2023 3:37 PM NURSE CLINICAL): Can only sleep for about 4 hours and wakes for bladder; feels she sleeps more than she should, wakes up with headaches and takes afternoon naps Encouraged patient to continue with biphasic sleep schedule; will refer to sleep Medicine for morning headaches which may be consistent with sleep apnea Urge incontinence of urine 09/05/2021 Assessment & Plan (11/25/2024 10:59 AM NURSE CLINICAL): Stable. Followed by urologist - Dr. Carmona, - on oxybutynin xl Assessment & Plan (02/22/2024 8:27 PM CDT): Chronic. Controlled. Occasional stress leakage. Continue oxybutynin Assessment & Plan (08/28/2023 3:37 PM NURSE CLINICAL): Goes to the bathroom every 4 hours; [...] management Assessment & Plan (09/05/2021 4:30 PM NURSE CLINICAL): Stable, well controlled Continue oxybutynin 10 mg daily Mild persistent asthma without complication 06/2021 Assessment & Plan (11/25/2024 11:11 AM NURSE CLINICAL): Restart flonase. Will try a different inhaler. Problem is cost of preventative inhaler. She was given arnuity. Will try advair/ wixela. Assessment & Plan (02/22/2024 8:27 PM CDT): Chronic. Controlled. Uses Arnuity seasonally when allergies causes to flare. Monitor. Continue prn albuterol Assessment & Plan (08/28/2023 3:37 PM NURSE CLINICAL): Stable, well controlled; rare use of inhaler [...] daily Assessment & Plan (09/05/2021 4:28 PM NURSE CLINICAL): Stable, well controlled; symptoms improved with use [...] Morbid obesity with BMI of 40.0-44.9, adult ([facility]) 08/18/2019 Assessment & Plan (11/26/2024 9:20 PM NURSE CLINICAL): BMI Follow-up includes: education provided. Assessment & Plan (02/22/2024 8:29 PM CDT): Chronic. Suboptimally controlled. Slowly get back into exercising as able not that ankle better. Watch diet. monitor Assessment & Plan (08/28/2023 3:37 PM NURSE CLINICAL): Stable, working on meal replacement; eats light [...] week Assessment & Plan (09/12/2022 3:25 PM NURSE CLINICAL): Not well controlled, recent increase in weight [...] changes Assessment & Plan (09/05/2021 4:29 PM NURSE CLINICAL): Stable, not well controlled; weight is stable, with approximately 3 lb weight loss since last visit Patient has begun to work on her weight, going to focus on portion control and healthy dietary choices using [employer] Blue Fl[employer] System[employer] plate to limit portions, healthy cooking at [...] p.r.n. Assessment & Plan (09/05/2021 4:29 PM NURSE CLINICAL): Improved quality sleep, is able to reinitiate [...] sinuses Assessment & Plan (09/12/2022 3:25 PM NURSE CLINICAL): Stable, well controlled Continue Astelin 1 spray [...] Pneumococcal Polysaccharide PPV23 06/14/2018 [facility] LIVE 01/21/2016 Social History Tobacco Use Types Packs/Day Years Used Date Smoking Tobacco: Former Cigarettes 1.5 37 1 972 - 2009 Smokeless Tobacco: Never Tobacco Cessation:Counseling Given: Not [...] on file Legal Sex Female 6:33 AM NURSE CLINICAL Gender Identity Not on file Sexual Orientation Not on file Last Filed Vital Signs Vital Sign Reading Time Taken Comments Blood Pressure 130/82 11/25/2024 10:45 AM NURSE CLINICAL Pulse 67 11/25/2024 10:45 AM NURSE CLINICAL Temperature 36.4 C (97.6 F) 11/25/2024 10:45 AM NURSE CLINICAL Respiratory Rate 18 11/25/2024 10:4 5 AM NURSE CLINICAL Oxygen Saturation 93% 12/26/2023 2:13 PM NURSE CLINICAL Inhaled Oxygen Concentration - - Weight 106.4 kg (234 lb 9.6 oz) 025 10:45 AM NURSE CLINICAL Height 156.2 cm (5' 1.5 ) 11/25/2024 10 :45 AM NURSE CLINICAL Body Mass Index 43.61 11/25/2024 10:45 AM NURSE CLINICAL Plan of Treatment Not on file Procedures Procedure Name Priority Date/Time Associated Diagnosis Comments HM COLONOSCOPY Routine 08/24/2022 DIAGNOSTIC MAMMOGRAM BILATERAL W FERDINAND Schedule Routine, Read Routine (OP Routine) 03/21/2022 Abnormal mammogram of both breasts HEPATITIS C ANTIBODY Routine 06/30/2021 10:22 AM CDT Annual physical exam from Last 3 Months or Most Recently Relevant to Health Maintenance Results * HM COLONOSCOPY (08/24/2022) Historical Provider HEALTH MAINTENANCE Final Result * DIAGNOSTIC MAMMOGRAM [...] GENERA L ORDERABLES Final Result AMEE DILLARD [id number] Department [place] [address] from Last 3 Months or Most Recently Relevant to Health Maintenance Insurance MEDICARE [facility] MEDICARE SUPPLEMENT INSURANCE MEDICARE [facility] MEDICARE SUPPLEMENT INSURANCE Care Teams Pattern Technician Relationship Specialty Start Date End Date Mary Sharpe NP [address] [facility] [address] [place] [address] PCP - General Family Medicine 11/25/24 Adelina Mac MD [address] [place] [address] Referring Physician Dermatology 11/25/24 Dagoberto Carmona MD [address] [place] [address] Consulting Physician Urology 11/25/24
[2025-03-02 23:12] VITALS: BP 164/78; PULSE 87; RESP 22; O2SAT 96
[2025-03-02 23:17] VITALS: BP 155/84; PULSE 85; RESP 14; O2SAT 96
[2025-03-02 23:18] VITALS: BP 155/84; PULSE 83; RESP 14; O2SAT 96
--- OUTSIDE RECORDS SUMMARY | 2025-03-02 23:26 | XMS_ITS | Continuity of Care Document ---
Author Organization [facility] Address [address] [place] [address] Phone Care Team Providers Care Delivery Merchandiser Name Role Phone Micky PT,MPT,ATC, Camron Unavailable Unavai lable Procedures Procedure Date Therapeutic Activities Neuromuscular Re-Ed Therapeutic Exercise Therapeutic Activities Neuromuscular Re-Ed Therapeutic Exercise Therapeutic Activities Neuromuscular Re-Ed Therapeutic Exercise Therapeutic Activities Neuromuscular Re-Ed Jul- Therapeutic Exercise Jul- Manual Therapy Therapeutic Activities Neuromuscular Re-Ed Jul- Therapeutic Exercise Jul- Manual Therapy Jul- Therapeutic Activities Neuromuscular Re-Ed Jul- Therapeutic Exercise Jul- Manual Therapy Therapeutic Activities Jul- Neuromuscular Re-Ed Jul- Therapeutic Exercise Jul- Manual Therapy Jul- Therapeutic Activities Jul- Therapeutic Exercise Jul- Neuromuscular Re-Ed Jul- Manual Therapy Therapeutic Activities Therapeutic Exercise Jul- Manual Therapy Jul- Neuromuscular Re-Ed Jul- Therapeutic Activities Neuromuscular Re-Ed Jul- Therapeutic Exercise Jul- Manual Therapy Jul- Therapeutic Activities Neuromuscular Re-Ed Therapeutic Exercise Therapeutic Activities Therapeutic Exercise Neuromuscular Re-Ed Therapeutic Activities Neuromuscular Re-Ed Therapeutic Exercise Therapeutic Activities Therapeutic Exercise Neuromuscular Re-Ed Therapeutic Activities Therapeutic Exercise Neuromuscular Re-Ed Doc neg elder mal no plan Neuromuscular Re-Ed PT Evaluation Moderate Complexity Therapeutic Activities Advance Directives Directive Yes / No Effective Date File Name No Information Encounters Encounter Description Practice Location Reason(s) For Visit Diagnoses Date Provider Providers Copied on Encounter [facility], [place], [place], [id number], tel:[phone] [place] No Information 2 [place], [place], [place]. [facility], [place], [place], [id number], tel:[phone] [place] No Information 2 [facility]. Referring Provider: Humberto [address] [facility] [address], [place], [address]. tel:[phone] [facility] [address], [place], [place], [address], tel:[phone] [place] No Information [facility] [place] Referring Provider: H[address]to [address] [facility] [address], [place], [address]. tel:[phone] [facility] [address], [place], [place], [address], tel:[phone] [place] No Information 2 [place]. Referring Provider: Humberto Singh [address], [place], [address]. tel:[phone] [facility], [place], [place], [address], [place] tel:[phone] [place] No Information 2 [place]. , [place], [place]. Referring Provider: Humberto Singh [address], [place], [address]. tel:[phone] [facility], [address], [place], [place], [address], [place] tel:[phone] [place] No Information 2 [place]. , [place], [place]. Referring Provider: Humberto Sin[address], [place], [address]. tel:[phone] [facility], [place], [place], [address], [place] tel:[phone] [place] No Information 2 [place]. , [place], [place]. Referring Provider: Humberto Singh [address], [place], [address]. tel:[phone] [facility], [place], [place], [address], [place] tel:[phone] [place] No Information 2 [place] , [place], [place]. Referring Provider: Humberto Singh [address], [place], [address]. tel:[phone] [facility], [place], [place], [address], [place] tel:[phone] [place] No Information 2 [place] , [place], [place]. Referring Provider: Humberto Singh [address], [place], [address]. tel:[phone] [facility], [place], [place], [address], [place] tel:[phone] [place] No Information Oct-1 2-202 2 [place] , [place], [place]. Referring Provider: H[address]to [address], [place], [address]. tel:[phone] [facility] [address], [place], [place], [address], [place] tel:[phone] [place] No Information Oct-1 0-202 2 [place] , [place], [place]. Referring Provider: H[address]to [address], [place], [address]. tel:[phone] [facility], [address], [place], [place], [address], [place] tel:[phone] [place] No Information Oct-0 7-202 2 [place]. , [place], [place]. Referring Provider: H[address]to [address], [place], [address]. tel:[phone] [facility], [place], [place], [address], [place] tel:[phone] [place] No Information Oct-0 5-202 2 [place] , [place], [place]. Referring Provider: H[address]to [address], [place], [address]. tel:[phone] [facility], [place], [place], [address], [place] tel:[phone] [place] No Information Oct-0 3-202 2 [place] , [place], [place]. Referring Provider: Humberto Singh [address], [place], [address]. tel:[phone] [facility], [place], [place], [address], [place] tel:[phone] [place] No Information Sep-3 0 2 [place], [place], . Referring Provider: Evens Powell [address] [facility] [address], [place], [address]. tel:[phone] [facility], [address], [place], [place], [address], tel:[phone] [place] No Information Sep-2 2 [facility]. Referring Provider: Humberto Singh [facility] [address], [place], [address]. tel:[phone] [facility], [address] [facility] [address], [place], [place], [address], tel:[phone] [place] No Information Sep-2 2 [facility]. Referring Provider: Humberto Singh [facility] [address], [place], [address]. tel:[phone] Family History Family Member Type Diagnosis Age At Onset No Information Payers Payer name Insurance type Covered democrat ID Authorviolettea tidarion(s) Medicare [place] MB [id number] [place] [id number] Social History Type Description Quantity Date Captured Comments Sex Female Smoking Status No Information Chief Complaint And Reason For Visit No Information Reason For Referral Reason For Referral No Information History Of Present Illness Encounter Date Complaint History Of Prese nt Illness No Information Functional Status Date Functional Assessmen t No Information Instructions Date Instruction Additional Infor mation Giving encouragement to exercise Related to Overweight Giving encouragement to exercise Related to Overweight Assessments Type Assessment Date No Information Patient Care Teams Name Effective Dates (start - stop) Status Members No Information
--- OUTSIDE RECORDS SUMMARY | 2025-03-02 23:26 | XMS_ITS | Referral Summary ---
Author Organization [facility] [address] [facility] lt Address [address] [place] [address] Care Team Providers Care Telephone Switchboard Operator Name Role Phone Mary Sharpe NP Primary Care Provider [phone] Adelina Mac MD Unavailable [phone] Dagoberto Carmona MD Unavailable [phone] Allergies Active Allergy Reactions Criticality Noted [...] 11/25/2024 Assessment & Plan (11/25/2024 11:00 AM LUMBER SORTER MACHINE): Improved with otc magnesium daily. Continue magnesium [...] treated Assessment & Plan (08/28/2023 3:37 PM LUMBER SORTER MACHINE): Can only sleep for about 4 hours and wakes for bladder; feels she sleeps more than she should, wakes up with headaches and takes afternoon naps Encouraged patient to continue with biphasic sleep schedule; will refer to sleep Medicine for morning headaches which may be consistent with sleep apnea Urge incontinence of urine 09/05/2021 Assessment & Plan (11/25/2024 10:59 AM LUMBER SORTER MACHINE): Stable. Followed by urologist - Dr. Carmona, - on oxybutynin xl Assessment & Plan (02/22/2024 8:27 PM CDT): Chronic. Controlled. Occasional stress leakage. Continue oxybutynin Assessment & Plan (08/28/2023 3:37 PM LUMBER SORTER MACHINE): Goes to the bathroom every 4 hours; [...] management Assessment & Plan (09/05/2021 4:30 PM LUMBER SORTER MACHINE): Stable, well controlled Continue oxybutynin 10 mg daily Mild persistent asthma without complication 06/2021 Assessment & Plan (11/25/2024 11:11 AM LUMBER SORTER MACHINE): Restart flonase. Will try a different inhaler. Problem is cost of preventative inhaler. She was given arnuity. Will try advair/ wixela. Assessment & Plan (02/22/2024 8:27 PM CDT): Chronic. Controlled. Uses Arnuity seasonally when allergies causes to flare. Monitor. Continue prn albuterol Assessment & Plan (08/28/2023 3:37 PM LUMBER SORTER MACHINE): Stable, well controlled; rare use of inhaler [...] daily Assessment & Plan (09/05/2021 4:28 PM LUMBER SORTER MACHINE): Stable, well controlled; symptoms improved with use [...] Morbid obesity with BMI of 40.0-44.9, adult ([facility]) 08/18/2019 Assessment & Plan (11/26/2024 9:20 PM LUMBER SORTER MACHINE): BMI Follow-up includes: education provided. Assessment & Plan (02/22/2024 8:29 PM CDT): Chronic. Suboptimally controlled. Slowly get back into exercising as able not that ankle better. Watch diet. monitor Assessment & Plan (08/28/2023 3:37 PM LUMBER SORTER MACHINE): Stable, working on meal replacement; eats light [...] week Assessment & Plan (09/12/2022 3:25 PM LUMBER SORTER MACHINE): Not well controlled, recent increase in weight [...] changes Assessment & Plan (09/05/2021 4:29 PM LUMBER SORTER MACHINE): Stable, not well controlled; weight is stable, with approximately 3 lb weight loss since last visit Patient has begun to work on her weight, going to focus on portion control and healthy dietary choices using [employer] SP[employer]a plate to limit portions, healthy cooking at [...] p.r.n. Assessment & Plan (09/05/2021 4:29 PM LUMBER SORTER MACHINE): Improved quality sleep, is able to reinitiate [...] sinuses Assessment & Plan (09/12/2022 3:25 PM LUMBER SORTER MACHINE): Stable, well controlled Continue Astelin 1 spray [...] on file Legal Sex Female 6:33 AM LUMBER SORTER MACHINE Gender Identity Not on file Sexual Orientation Not on file Last Filed Vital Signs Vital Sign Reading Time Taken Comments Blood Pressure 130/82 11/25/2024 10:45 AM LUMBER SORTER MACHINE Pulse 67 11/25/2024 10:45 AM LUMBER SORTER MACHINE Temperature 36.4 C (97.6 F) 11/25/2024 10:45 AM LUMBER SORTER MACHINE Respiratory Rate 18 11/25/2024 10:4 5 AM LUMBER SORTER MACHINE Oxygen Saturation 93% 12/26/2023 2:13 PM LUMBER SORTER MACHINE Inhaled Oxygen Concentration - - Weight 106.4 kg (234 lb 9.6 oz) 025 10:45 AM LUMBER SORTER MACHINE Height 156.2 cm (5' 1.5 ) 11/25/2024 10 :45 AM LUMBER SORTER MACHINE Body Mass Index 43.61 11/25/2024 10:45 AM LUMBER SORTER MACHINE Plan of Treatment Not on file Procedures [...] GENERA L ORDERABLES Final Result AMEE DILLARD [id number] Department [place] [address] from Last 3 Months or Most Recently Relevant to Health Maintenance Insurance MEDICARE [facility] MEDICARE SUPPLEMENT INSURANCE MEDICARE [facility] MEDICARE SUPPLEMENT INSURANCE Care Teams Telephone Switchboard Operator Relationship Specialty Start Date End Date Mary Sharpe NP [address] [facility] [address] [place] [address] PCP - General Family Medicine 11/25/24 Adelina Mac MD [address] [place] [address] Referring Physician Dermatology 11/25/24 Dagoberto Carmona MD [address] [place] [address] Consulting Physician Urology 11/25/24
--- OUTSIDE RECORDS SUMMARY | 2025-03-02 23:26 | XMS_ITS | Continuity of Care Document ---
Author Organization [facility] Address [address] [place] [address] Phone Care Team Providers Care Operations Clerk Name Role Phone Nathan Garcia Unavailable Unavailable Procedures Procedure Date Post-op Follow-up Visit After Cataract Laser Surgery Office/outpatient Visit, Est Post-op Follow-up Visit Post-op Follow-up Visit Remove Cataract, Insert Lens Presbyopia Correcting IOL Eye Exam Established Pt IOLMaster-Professional Advance Directives Directive Yes / No Effective Date File Name No Information Encounters Encounter Description Practice Location Reason(s) For Visit Diagnoses Date Provider Providers Copied on Encounter [facility], [id number] [place] [address] [address], [place], [place], [address], [place] tel:[phone] [facility] No Information Mar-3 0-201 0 Radha Evans. [address], [place], [address], [place]. tel:[phone] [facility], [address], [place], [place], [address], [place] tel:[phone] [facility] No Information 2 2-201 0 Radha Evans. [address] , [address], [place], [address], [place]. tel:[phone] Office/outpat ient Visit, Est [facility], [address], [place], [place], [address], [place] tel:[phone] [facility] No Information 6-201 0 Radha Evans. [address] , [address], [place], [place], [facility], [place]. tel:[phone] [facility], [address], [place], [place], [address], [place] tel:[phone] [facility] No Information 2 5-200 7 Radha Evans. [address], [place], [place], [facility], [place]. tel:[phone] [facility], [address] [place] [address] [address], [place], [place], [address], [place] tel:[phone] [facility] No Information 1 1-200 7 Doimelissa Edalex. [address], [address], [place], [place], [facility], [place]. tel:[phone] [facility], [address], [place], [place], [address], [place] tel:[phone] [facility] No Information February-1 0-200 7 Radha Edalex. [address], [address], [place], [place], [facility], [place]. tel:[phone] [facility], [address] [place] [address] [address], [place], [place], [address], [place] tel:[phone] [facility] No Information 2 8-200 7 Radha Evans. [address], [place], [place], [facility], [place]. tel:[phone] Referring Provider: Nathan Grubbs, [address], [place], [address]. tel:[phone] Family History Family Member Type Diagnosis Age At Onset No Information Payers Payer name Insurance type Covered democrat ID Authoriza tion(s) No Information Social History Type Description Quantity Date Captured Comments Sex Female Smoking Status No Information Chief Complaint And Reason For Visit No Information Reason For Referral Reason For Referral No Information History Of Present Illness Encounter Date Complaint History Of Prese nt Illness No Information Functional Status Date Functional Assessmen t No Information Instructions Date Instruction Additional Infor mation No Information Assessments Type Assessment Date No Information Patient Care Teams Name Effective Dates (start - stop) Status Members No Information
--- OUTSIDE RECORDS SUMMARY | 2025-03-02 23:26 | XMS_ITS | Clinical Summary ---
Author Organization [facility] [address] [facility] lt Address [address] [place] [address] Care Team Providers Care Pipe Processor Name Role Phone Mary Sharpe NP Primary Care Provider [phone] Adelina Mac MD Unavailable [phone] Dagoberto Carmona MD Unavailable [phone] Allergies Active Allergy Reactions Criticality Noted [...] 11/25/2024 Assessment & Plan (11/25/2024 11:00 AM BALL POINTS INSPECTOR): Improved with otc magnesium daily. Continue magnesium [...] treated Assessment & Plan (08/28/2023 3:37 PM BALL POINTS INSPECTOR): Can only sleep for about 4 hours and wakes for bladder; feels she sleeps more than she should, wakes up with headaches and takes afternoon naps Encouraged patient to continue with biphasic sleep schedule; will refer to sleep Medicine for morning headaches which may be consistent with sleep apnea Urge incontinence of urine 09/05/2021 Assessment & Plan (11/25/2024 10:59 AM BALL POINTS INSPECTOR): Stable. Followed by urologist - Dr. Carmona, - on oxybutynin xl Assessment & Plan (02/22/2024 8:27 PM CDT): Chronic. Controlled. Occasional stress leakage. Continue oxybutynin Assessment & Plan (08/28/2023 3:37 PM BALL POINTS INSPECTOR): Goes to the bathroom every 4 hours; [...] management Assessment & Plan (09/05/2021 4:30 PM BALL POINTS INSPECTOR): Stable, well controlled Continue oxybutynin 10 mg daily Mild persistent asthma without complication 06/2021 Assessment & Plan (11/25/2024 11:11 AM BALL POINTS INSPECTOR): Restart flonase. Will try a different inhaler. Problem is cost of preventative inhaler. She was given arnuity. Will try advair/ wixela. Assessment & Plan (02/22/2024 8:27 PM CDT): Chronic. Controlled. Uses Arnuity seasonally when allergies causes to flare. Monitor. Continue prn albuterol Assessment & Plan (08/28/2023 3:37 PM BALL POINTS INSPECTOR): Stable, well controlled; rare use of inhaler [...] daily Assessment & Plan (09/05/2021 4:28 PM BALL POINTS INSPECTOR): Stable, well controlled; symptoms improved with use [...] Morbid obesity with BMI of 40.0-44.9, adult ([facility]) 08/18/2019 Assessment & Plan (11/26/2024 9:20 PM BALL POINTS INSPECTOR): BMI Follow-up includes: education provided. Assessment & Plan (02/22/2024 8:29 PM CDT): Chronic. Suboptimally controlled. Slowly get back into exercising as able not that ankle better. Watch diet. monitor Assessment & Plan (08/28/2023 3:37 PM BALL POINTS INSPECTOR): Stable, working on meal replacement; eats light [...] week Assessment & Plan (09/12/2022 3:25 PM BALL POINTS INSPECTOR): Not well controlled, recent increase in weight [...] changes Assessment & Plan (09/05/2021 4:29 PM BALL POINTS INSPECTOR): Stable, not well controlled; weight is stable, with approximately 3 lb weight loss since last visit Patient has begun to work on her weight, going to focus on portion control and healthy dietary choices using algranoa plate to limit portions, healthy cooking at [...] p.r.n. Assessment & Plan (09/05/2021 4:29 PM BALL POINTS INSPECTOR): Improved quality sleep, is able to reinitiate [...] sinuses Assessment & Plan (09/12/2022 3:25 PM BALL POINTS INSPECTOR): Stable, well controlled Continue Astelin 1 spray [...] on file Legal Sex Female 6:33 AM BALL POINTS INSPECTOR Gender Identity Not on file Sexual Orientation Not on file Obstetrics History Last Filed Vital Signs Vital Sign Reading Time Taken Comments Blood Pressure 130/82 11/25/2024 10:45 AM BALL POINTS INSPECTOR Pulse 67 11/25/2024 10:45 AM BALL POINTS INSPECTOR Temperature 36.4 C (97.6 F) 11/25/2024 10:45 AM BALL POINTS INSPECTOR Respiratory Rate 18 11/25/2024 10:4 5 AM BALL POINTS INSPECTOR Oxygen Saturation 93% 12/26/2023 2:13 PM BALL POINTS INSPECTOR Inhaled Oxygen Concentration - - Weight 106.4 kg (234 lb 9.6 oz) 025 10:45 AM BALL POINTS INSPECTOR Height 156.2 cm (5' 1.5 ) 11/25/2024 10 :45 AM BALL POINTS INSPECTOR Body Mass Index 43.61 11/25/2024 10:45 AM BALL POINTS INSPECTOR Plan of Treatment Health Maintenance Due Date [...] GENERA L ORDERABLES Final Result AMEE DILLARD [id number] [place] [address] from Last 3 Months or Most Recently Relevant to Health Maintenance Insurance MEDICARE [facility] MEDICARE SUPPLEMENT INSURANCE SALLY HARTMAN [id number] MEDICARE [facility] MEDICARE SUPPLEMENT INSURANCE SALLY HARTMAN [id number] Care Teams Pipe Processor Relationship Specialty Start Date End Date Mary Sharpe NP [address] [facility] [address] [place] [address] PCP - General Family Medicine 11/25/24 Adelina Mac MD [address] [place] [address] Referring Physician Dermatology 11/25/24 Dagoberto Carmona MD [address] [place], [place] [id number] Consulting Physician Urology 11/25/24
--- OUTSIDE RECORDS SUMMARY | 2025-03-02 23:26 | XMS_ITS | Clinical Summary ---
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
[2025-03-02 23:30] VITALS: TEMP 36.7
[2025-03-02 23:35] LABS: Basophils Absolute Auto 0.1 K/mm3 (0.0-0.1); Basophils Percent Auto 0.5 % (0.2-1.2); Eosinophils Absolute Auto 0.3 K/mm3 (0-0.3); Eosinophils Percent Auto 2.5 % (0-4.4); Hematocrit 43.6 % (37.0-47.0); Immature Granulocyte Absolute 0.07 K/mm3 (0.00-0.031); Immature Granulocyte Percent A 0.5 % (0-0.5); Lymphocytes Absolute Auto 2.82 K/mm3 (0.9-3.2); Lymphocytes Percent Auto 21.4 % (18.3-44.2); Mean Corpuscular HGB Conc 32.1 g/dl (32-36); Mean Corpuscular Hemoglobin 28.3 pg (26-34); Mean Corpuscular Volume 88.3 fl (80-100); Mean Platelet Volume 9.9 fl (7.4-10.4); Monocytes Absolute Auto 1.1 K/mm3 (0.1-0.6); Monocytes Percent Auto 8.4 % (2.6-8.5); Neutrophils Absolute Auto 8.8 K/mm3 (1.3-6.7); Neutrophils Percent Auto 66.7 % (45.5-73.1); Platelet Count Result 283 k/mm3 (150-375); Red Blood Count 4.94 M/mm3 (4.2-5.4); White Blood Count 13.2 K/mm3 (4.5-10.0)
[2025-03-02 23:49] LABS: Alanine Aminotransferase 20 U/L (6-35); Albumin Level 4.5 g/dL (3.5-5.1); Alkaline Phosphatase 103 U/L (38-126); Anion Gap 11 mmol/L (4-12); Aspartate Amino Transferase 23 U/L (14-36); Bilirubin,Total 1.2 mg/dL (0.2-1.3); Blood Urea Nitrogen 24 mg/dL (7-17); Calcium 9.9 mg/dL (8.4-10.2); Carbon Dioxide 24 mmol/L (22-30); Chloride 105 mmol/L (98-107); Estimated CRCL calculation 50 ml/min; Estimated Glomerular Filt Rate 55; Glucose 119 mg/dL (65-110); Sodium 140 mmol/L (137-145)
[2025-03-02 23:53] VITALS: BP 172/103; PULSE 83; RESP 13; O2SAT 96
[2025-03-02] MEDS: SODIUM CHLORIDE 0.9% IV 500 ML 999 ML IV CONT (23:54)
[2025-03-02] MEDS: MORPHINE SULFATE (*CRX) 2 MG/ML INJ IV PUSH (23:54)
[2025-03-02] MEDS: ONDANSETRON INJ 4 MG/2 ML VIAL IV PUSH (23:54)
[2025-03-02 23:57] LABS: Add Urine Microscopic? YES; Appearance Urine Turbid (Clear); Bacteria Urine 1+ /hpf; Bilirubin Urine Negative (Negative); Blood Urine 3+ (Negative); Color Urine Dark Yellow (Yellow); Glucose Urine UA Negative (Negative); Ketones Urine Trace mg/dL (Negative); Leukocyte Esterase Ur 3+ LEU/UL (Negative); Need Manual Microscopic Reviewed; Nitrate Urine Positive (Negative); Non Pathogenic Casts 0-2; Protein Urine 2+ mg/dL (Negative); RBC Urine >100 /hpf (0-2); Squamous Epithelial Cell Urine Few /hpf (Few); WBC Urine >100 /hpf (0-3); pH Urine 5.5 (5.0-9.0)
[2025-03-03] VITALS (10 sets, daily range): BP systolic 106–152; BP diastolic 40–77; PULSE 79–94; RESP 12–21; TEMP 37.1–37.4; O2SAT 88–96; BMI 42.4
--- NOTE | 2025-03-03 00:29 | ED_ITS ---
HPI - Abdominal Pain General Chief Complaint: Abdominal Pain Stated Complaint: its a kidney stone Time Seen by Provider: 03/02/25 23:11 Source: patient and old records reviewed Mode of arrival: ambulatory Limitations: no limitations History of Present Illness HPI narrative: Patient is a 74-year-old female, past medical history kidney stones, who presents the ED with report of right flank pain. Patient reports the pain became severe and her right flank around 10:00 p.m. tonight. It does radiate slightly to her right upper abdomen. She began having painful urination, hematuria with blood clots. She notes history of previous kidney stones that have required stent placement and lithotripsy. She follows with Dr. Malin with Urology. She denies nausea, vomiting, diarrhea, constipation, fevers. Related Data Home Medications Medication Instructions Recorded Confirmed Last Taken Type fluticasone furoate 100 2 inh inhalation DAILY 08/15/22 05/02/24 Unknown History mcg/actuation blister powder for inhalation (Arnuity Ellipta) oxybutynin chloride 5 mg tablet 10 mg PO TID 08/15/22 05/02/24 08/23/22 21:30 History Allergies Allergy/AdvReac Type Severity Reaction Status Date / Time shrimp Allergy Unknown NAUSEA Verified 03/02/25 22:53 Review of Systems 2 Review of Systems: All systems reviewed & are unremarkable except as noted in HPI. All systems reviewed & are unremarkable except as noted in HPI and below PMFSH Past Medical History Medical History Abscess of right lower extremity Osteopenia after menopause Bone density scan April 2019 Obstructive sleep apnea Polysomnogram 2014 recommended CPAP of 6 Herpes zoster dermatitis 2008 Chronic allergic rhinitis Morbid obesity Chronic lower back pain Outpatient MRI May 2019 demonstrating mild spondylosis Urolithiasis Surgical History Surgical History Status post open reduction with internal fixation of fracture Right ankle February 2009 H/O colonoscopy with polypectomy X4 History of tonsillectomy and adenoidectomy Family History Family History Father , at 94 years old CHF (congestive heart failure) COPD (chronic obstructive pulmonary disease) Mother , at 58 years old Liver cancer Social History Social History Social History: The patient reports that she quit smoking in 2007. She denies any alcohol use or illicit substance use. She has been for 47 years. She has 2 adult children who are healthy. 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 Smoking packs per day: 1.5 Smoking cigarettes per day: 30.0 Years smoked: 40 Smoking pack-years: 60.00 Smoking status: Former smoker Tobacco type: cigarettes Second hand tobacco smoke exposure: Yes Alcohol intake: current Alcohol use details: rarely Substance use: never Substance use type: does not use Do You Feel Safe in your Home?: Yes Lack of Transportation: No Lack of Food: Never True Current Housing: I Have Housing Concerned About Future Housing: No Difficulty Paying Gas/Electric Bills: No Difficulty Paying for Meds: No Currently Unemployed: No Education: Master's Degree or Higher Difficulty w/ Childcare or Family Care: No Living arrangements: with family Occupation/Education: retired Additional occupation/education comments: Teacher[employer] Gender identity (if verbalized by the patient): Female Spiritual care concerns: No Agree to blood products: No Exam 2 Narrative: GENERAL: Well appearing, morbidly obese with BMI of 43.1, non-toxic, in no acute distress. HEAD: Normocephalic, atraumatic. RESPIRATORY: Airway patent, respirations nonlabored. Clear to auscultation bilaterally, no rales, rhonchi, wheezing. CARDIOVASCULAR: Regular rate and rhythm without murmurs, rubs, or gallops. ABDOMINAL: Soft, mild diffuse tenderness throughout abdomen, worst in epigastric and right upper quadrant, nondistended. Normoactive BS. No significant reproducible CVA tenderness. MUSCULOSKELETAL: Moves all extremities. No gross deformities. SKIN: Warm, dry, normal color. NEURO: A&O X3. Speech clear. PSYCHIATRIC: Appropriate mood and affect. Normal interaction. Course Vital Signs Vital signs: Vital Signs Pulse Rate 83 03/02/25 23:18 Respiratory Rate 14 03/02/25 23:18 Blood Pressure 155/84 H 03/02/25 23:18 Pulse Oximetry 96 03/02/25 23:18 Temperature 98.1 F 03/02/25 23:30 Pulse Rate 83 03/02/25 23:18 Respiratory Rate 14 03/02/25 23:18 Blood Pressure 155/84 H 03/02/25 23:18 Pulse Oximetry 96 03/02/25 23:18 MDM - Abdominal Pain MDM Narrative Medical decision making narrative: Patient presented to ED with right flank pain that began tonight, hematuria, dysuria. History of kidney stones. Vitals are stable upon arrival. Patient is afebrile here. CBC with white blood cell count of 13.2. Kidney function is stable. Creatinine 0.98. UA consistent with infection, positive nitrate, 3+ leuk esterase, greater than 100 RBC/WBC, 1+ urine bacteria. Sent for culture. Will treat. CT scan of abdomen/pelvis was obtained and showing right 6 mm UPJ stone with mild obstructive uropathy. Consistent with patient's presentation and clinical picture. Blood cultures obtained. Rocephin started in the ED. Given stone with infection, will discuss with urology for admission. Discussed case with Dr. Gordon, urology, agrees w/ plan, NPO, abx, will consult. Discussed case with Dr. Garnica, hospitalist, accepted patient for admission. Patient and family in agreement with plan and need for admission. VS have remained stable, patient remains afebrile. Pain controlled at this time with initial dose of 2mg Morphine. Medical Records Attestation: I reviewed the patient's medical records. Lab Data Attestation: I reviewed the patient's lab results. 03/02/25 23:20 03/02/25 23:20 Labs: Lab Results 03/02/25 Range/Units 23:20 WBC 13.2 H (4.5-10.0) K/mm3 RBC 4.94 (4.2-5.4) M/mm3 Hgb 14.0 D (12.0-15.0) g/dL Hct 43.6 (37.0-47.0) % MCV 88.3 (80-100) fl MCH 28.3 (26-34) pg MCHC 32.1 (32-36) g/dl RDW 14.0 (11.5-14.5) % Plt Count 283 D (150-375) k/mm3 MPV 9.9 (7.4-10.4) fl Immature Gran % (Auto) 0.5 (0-0.5) % Neut % (Auto) 66.7 (45.5-73.1) % Lymph % (Auto) 21.4 (18.3-44.2) % Gordon % (Auto) 8.4 (2.6-8.5) % Eos % (Auto) 2.5 (0-4.4) % Baso % (Auto) 0.5 (0.2-1.2) % Lymph # (Auto) 2.82 (0.9-3.2) K/mm3 Gordon # (Auto) 1.1 H (0.1-0.6) K/mm3 Eos # (Auto) 0.3 (0-0.3) K/mm3 Baso # (Auto) 0.1 (0.0-0.1) K/mm3 Abs Immat Gran (auto) 0.07 H (0.00-0.031) K/mm3 Absolute Neuts (auto) 8.8 H (1.3-6.7) K/mm3 Absolute Nucleated RBC 0.000 (0.0-0.012) K/mm3 Nucleated RBC % 0.0 (0.0-0.2) % Sodium 140 (137-145) mmol/L Potassium 4.0 (3.4-5.0) mmol/L Chloride 105 (98-107) mmol/L Carbon Dioxide 24 (22-30) mmol/L Anion Gap 11 (4-12) mmol/L BUN 24 H (7-17) mg/dL Creatinine 0.98 (0.7-1.0) mg/dL Estim Creat Clear Calc 50 ml/min Estimated GFR 55 L (59 - ) Glucose 119 H (65-110) mg/dL Calcium 9.9 (8.4-10.2) mg/dL Total Bilirubin 1.2 (0.2-1.3) mg/dL AST 23 (14-36) U/L ALT 20 (6-35) U/L Alkaline Phosphatase 103 (38-126) U/L Total Protein 8.0 (6.3-8.2) g/dL Albumin 4.5 (3.5-5.1) g/dL Urine Color Dark yellow (Yellow) Urine Appearance Turbid H (Clear) Urine pH 5.5 (5.0-9.0) Ur Specific [place] 1.020 (1.001-1.035) Urine Protein 2+ H (Negative) mg/dL Urine Glucose (UA) Negative (Negative) mg/dL Urine Ketones Trace H (Negative) mg/dL Ur Blood (Man) 3+ H (Negative) Urine Nitrate Positive H (Negative) Urine Bilirubin Negative (Negative) Urine Urobilinogen 1.0 (<2.0) mg/dL Add Ur Microanalysis Reviewed Leukocyte Esterase Rfl 3+ H (Negative) BARBARA/UL Urine RBC >100 H (0-2) /hpf Urine WBC >100 H (0-3) /hpf Ur Squamous Epith Cells Few (Few) /hpf Urine Bacteria 1+ H /hpf Urine Casts 0-2 Imaging Data Attestation: I personally reviewed and interpreted this imaging study as follows: Radiologist's impression: ITS Impressions Abdomen/Pelvis CT 03/03/25 00:01 IMPRESSION: 6 mm stone at the right UPJ causing mild obstructive uropathy. Discharge Plan Discharge Clinical Impression: Calculus of proximal right ureter UTI (urinary tract infection) Qualifiers: Urinary tract infection type: acute cystitis Hematuria presence: with hematuria Qualified Code(s): N30.01 - Acute cystitis with hematuria Patient Disposition: Still a Patient Condition: Stable Patient Language: Syriac Prescriptions: No Action methylprednisolone [Medrol (Dayday)] 4 mg tablets,dose pack See Rx Instructions PO PER PKG DIR Qty: 1 0RF Rx Instructions: PO PER PKG DIR for 6 days Arnuity Ellipta 100 mcg/actuation blister with device 2 inh INHALATION DAILY oxybutynin chloride 5 mg tablet 10 mg PO TID Rx Instructions: take three times a day Follow-up/Referrals: Keven,Mary Arroyo, RAILCAR FOREMAN [Primary Care Provider] -
--- NOTE | 2025-03-03 00:53 | PM.IMHP ---
H&P: HPI History of Present Illness Date/Time: 03/03/25 00:53 Chief Complaint: UTI Narrative: 74-year-old female with a past medical history of kidney stones presented to ED due to right flank pain. Patient reports the the pain started around 10:00 p.m. Pertinent ED labs: WBC 13.2, hemoglobin 14, hematocrit 43.6, platelet 283, sodium 140, potassium 4, creatinine 0.9, creatinine clearance greater than 50 UA: Positive for nitrates and leukocyte esterase,WBC>[address]:6 mm stone at the right UPJ causing mild obstructive uropathy Patient was evaluated at the bedside. Patient reports previous history of sepsis due to UTI 5 years ago and was placed stent which was later removed by Dr. Carmona. Patient is admitted in the setting of UA possibly due to obstructive nephropathy. ED provider already spoke with urologist. Possible stent placement tomorrow. Hold anticoagulation and NPO. Patient started on Rocephin. Review of Systems Review of Systems: All systems reviewed & are unremarkable except as noted in HPI. All systems reviewed & are unremarkable except as noted in HPI and below PMFSH Past Medical History Medical History Abscess of right lower extremity Osteopenia after menopause Bone density scan April 2019 Obstructive sleep apnea Polysomnogram 2014 recommended CPAP of 6 Herpes zoster dermatitis 2008 Chronic allergic rhinitis Morbid obesity Chronic lower back pain Outpatient MRI May 2019 demonstrating mild spondylosis Urolithiasis Surgical History Surgical History Status post open reduction with internal fixation of fracture Right ankle February 2009 H/O colonoscopy with polypectomy X4 History of tonsillectomy and adenoidectomy Family History Family History Father , at 94 years old CHF (congestive heart failure) COPD (chronic obstructive pulmonary disease) Mother , at 58 years old Liver cancer Social History Social History Social History: The patient reports that she quit smoking in 2007. She denies any alcohol use or illicit substance use. She has been for 47 years. She has 2 adult children who are healthy. 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 Smoking packs per day: 1.5 Smoking cigarettes per day: 30.0 Years smoked: 40 Smoking pack-years: 60.00 Smoking status: Former smoker Tobacco type: cigarettes Second hand tobacco smoke exposure: Yes Alcohol intake: former Alcohol use details: rarely Substance use: never Substance use type: does not use Do You Feel Safe in your Home?: Yes Lack of Transportation: No Lack of Food: Never True Current Housing: I Have Housing Concerned About Future Housing: No Difficulty Paying Gas/Electric Bills: No Difficulty Paying for Meds: No Currently Unemployed: No Education: Master's Degree or Higher Difficulty w/ Childcare or Family Care: No Living arrangements: with family Occupation/Education: retired Additional occupation/education comments: [employer] Gender identity (if verbalized by the patient): Female Spiritual care concerns: No Agree to blood products: No Meds Home Medications and Allergies Home Medications Medication Instructions Recorded Confirmed Type fluticasone furoate 100 2 inh inhalation PRN shortness of 08/15/22 03/03/25 History mcg/actuation blister powder for breath and weezing inhalation (Arnuity Ellipta) oxybutynin chloride 5 mg tablet 10 mg PO Q12H 08/15/22 03/03/25 History Allergies Allergy/AdvReac Type Severity Reaction Status Date / Time shrimp Allergy Unknown NAUSEA Verified 03/02/25 22:53 Vital Signs Vital Signs - 24 hr 03/02/25 23:18 03/02/25 23:30 Temperature 98.1 F Pulse Rate 83 Respiratory Rate 14 Blood Pressure 155/84 H Pulse Oximetry 96 Exam Narrative: GENERAL: Well appearing, morbidly obese with BMI of 43.1, non-toxic, in no acute distress. HEAD: Normocephalic, atraumatic. RESPIRATORY: Airway patent, respirations nonlabored. Clear to auscultation bilaterally, no rales, rhonchi, wheezing. CARDIOVASCULAR: Regular rate and rhythm without murmurs, rubs, or gallops. ABDOMINAL: Soft, mild diffuse tenderness throughout abdomen, worst in epigastric and right upper quadrant, nondistended. Normoactive BS. No significant reproducible CVA tenderness. MUSCULOSKELETAL: Moves all extremities. No gross deformities. SKIN: Warm, dry, normal color. NEURO: A&O X3. Speech clear. PSYCHIATRIC: Appropriate mood and affect. Normal interaction. H&P: Results Labs Labs: Short CBC 03/02/25 Range/Units 23:20 WBC 13.2 H (4.5-10.0) K/mm3 Hgb 14.0 D (12.0-15.0) g/dL Hct 43.6 (37.0-47.0) % Plt Count 283 D (150-375) k/mm3 BMP 03/02/25 23:20 Sodium 140 Potassium 4.0 Chloride 105 Carbon Dioxide 24 BUN 24 H Creatinine 0.98 Glucose 119 H Calcium 9.9 Liver Function 03/02/25 Range/Units 23:20 Total Bilirubin 1.2 (0.2-1.3) mg/dL AST 23 (14-36) U/L ALT 20 (6-35) U/L Alkaline Phosphatase 103 (38-126) U/L Albumin 4.5 (3.5-5.1) g/dL Urine 03/02/25 Range/Units 23:20 Urine Color Dark yellow (Yellow) Urine Appearance Turbid H (Clear) Urine pH 5.5 (5.0-9.0) Ur Specific [place] 1.020 (1.001-1.035) Urine Protein 2+ H (Negative) mg/dL Urine Glucose (UA) Negative (Negative) mg/dL Assessment and Plan Assessment and plan (1) Nausea & vomiting: Code(s): R11.2 - Nausea with vomiting, unspecified Status: Acute (2) Urolithiasis: Qualifiers: Urinary calculus location: ureter Qualified Code(s): N20.1 - Calculus of ureter Code(s): N20.9 - Urinary calculus, unspecified Status: Acute (3) UTI (urinary tract infection): Qualifiers: Hematuria presence: with hematuria Urinary tract infection type: acute cystitis Qualified Code(s): N30.01 - Acute cystitis with hematuria Code(s): N39.0 - Urinary tract infection, site not specified Status: Acute Plan UTI Secondary to obstructive nephrolithiasis Reviewed CT scan evidence of obstruction but not abscess Reviewed UA Started on Rocephin Pending urine culture Possible stent placement tomorrow No evidence of pyelonephritis P.o. antibiotics once culture results Urology consulted NPO for surgery Accu-Cheks q.6 hours Med Reconciliation pending DVT prophylaxis: SCD GI prophylaxis:Protonix 40 mg IV QD Hospitalist MIPS Advance Care Plan I have confirmed that the patient's Advanced Care Plan is present, code status is documented, or surrogate decision maker is listed in patient medical record.: Yes Medication Reconciliation I have utilized all available resources to obtain, update and review the patients current medications (includes all prescriptions, OTC, herbals, cannabis, and nutritional supplements).: Yes
[2025-03-03 01:21] LABS: Lactic Acid Reflex 0.9 mmol/L (0.7-2.0)
--- NOTE | 2025-03-03 02:01 | ADMGEN ---
This patient, Lorna Huntley, was admitted to [facility] Surg Room 317-02. Patient/family oriented to hospital policies and general routines including ID bracelet, bed and alarms, visiting hours, pain management, procedures, bathroom and other care routines, personal items, smoking policy, room service/diet, and visiting hours. Information on how to activate the Rapid Response Team has been discussed. Patient/Family are encouraged to report perceived risks to care and to ask questions if they do not understand what they are told or what they should do.
[2025-03-03] MEDS: SODIUM CHLORIDE 0.9% IV 1,000 ML 100 ML IV CONT ×2 (02:08→14:34)
--- NOTE | 2025-03-03 08:27 | WPDURCON ---
Assessment and Plan Assessment and plan (1) Calculus of proximal right ureter: Code(s): N20.1 - Calculus of ureter Status: Acute (2) Urinary tract infection: Qualifiers: Hematuria presence: with hematuria Urinary tract infection type: acute cystitis Qualified Code(s): N30.01 - Acute cystitis with hematuria Code(s): N39.0 - Urinary tract infection, site not specified Status: Acute Plan - 6 mm right UPJ stone with mild obstructive uropathy - Urinary tract infection likely secondary to obstruction - History of nephrolithiasis with prior left ureteral stone treated with ESWL in 2019 - Microscopic hematuria with significant smoking history (40 pack-year, quit 2007) - Morbid obesity (BMI >40) Plan: - Keep NPO for cystoscopy with right ureteral stent placement today in the OR as add-on case with Dr. Herrera - Continue IV ceftriaxone pending blood and urine culture results - Transition to oral antibiotics based on culture results - Outpatient ureteroscopy for definitive stone treatment after UTI resolution (recommended over ESWL due to patient's body habitus) - Pain control per primary team Urology Consult Note HPI Date Seen: 03/03/25 Requesting Physician: Jaquan Garnica MD Primary Care Provider: Mary Sharpe, CORPORATE GENERAL MANAGER Consult Narrative Reason for consult: Right ureteral stone, UTI Narrative: Lorna Huntley is a 74yoF who presents with right flank pain that began last night around 10:00 PM, radiating to the right lower abdomen with associated dysuria and hematuria with blood clots. She reports seeing small clots a couple days ago with intermittent left-sided pain that has since resolved. She has history of left ureteral stone treated with ESWL and stent placement [place] [address] Carmona. Patient follows with [facility] and was last seen in 02/2023 for microscopic hematuria and overactive bladder managed with oxybutynin. The patient reports a previous history of sepsis due to UTI with a kidney stone 5 years ago. -PERTINENT LABS: 03/02/2025 - WBC 13.2, HGB 14, Cr 0.98, lactic acid 0.9 03/02/2025 - Urinalysis: dark yellow, turbid, 3+ blood, +nitrate, 3+ LE, >100 RBC, >100 WBC, 1+ urine bacteria -PERTINENT IMAGIN03/03/2025 CT Abdomen/Pelvis (without contrast) - Multiple simple bilateral renal cysts. Punctate nonobstructing left renal calcifications. No left hydronephrosis. Mild right pelviectasis and caliectasis. 6 mm calcification in the right UPJ. Additional nonobstructing punctate right-sided calcifications. 03/03/2025 KUB - Probable small right lower pole renal stone. Review of Systems Constitutional: Constitutional: Denies weakness ENT: Reports Normal hearing present Cardiovascular: Cardiovascular: Denies chest pain Respiratory: Respiratory: Denies dyspnea Gastrointestinal: Gastrointestinal: Reports abdominal pain (RLQ tenderness), Denies nausea and Denies vomiting Genitourinary: Genitourinary: Reports as per HPI Musculoskeletal: Musculoskeletal: Denies myalgias Psychiatric: Psychiatric: Denies confusion [facility] Past Medical History Medical History Abscess of right lower extremity Osteopenia after menopause Bone density scan April 2019 Obstructive sleep apnea Polysomnogram 2014 recommended CPAP of 6 Herpes zoster dermatitis 2008 Chronic allergic rhinitis Morbid obesity Chronic lower back pain Outpatient MRI May 2019 demonstrating mild spondylosis Urolithiasis Surgical History Surgical History Status post open reduction with internal fixation of fracture Right ankle February 2009 H/O colonoscopy with polypectomy X4 History of tonsillectomy and adenoidectomy Family History Family History Father , at 94 years old CHF (congestive heart failure) COPD (chronic obstructive pulmonary disease) Mother , at 58 years old Liver cancer Social History Social History Social History: The patient reports that she quit smoking in 2007. She denies any alcohol use or illicit substance use. She has been for 47 years. She has 2 adult children who are healthy. 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 Smoking packs per day: 1.5 Smoking cigarettes per day: 30.0 Years smoked: 40 Smoking pack-years: 60.00 Smoking status: Former smoker Tobacco type: cigarettes Second hand tobacco smoke exposure: Yes Alcohol intake: former Alcohol use details: rarely Substance use: never Substance use type: does not use Do You Feel Safe in your Home?: Yes Lack of Transportation: No Lack of Food: Never True Current Housing: I Have Housing Concerned About Future Housing: No Difficulty Paying Gas/Electric Bills: No Difficulty Paying for Meds: No Currently Unemployed: No Education: Master's Degree or Higher Difficulty w/ Childcare or Family Care: No Living arrangements: with family Occupation/Education: retired Additional occupation/education comments: [employer] Gender identity (if verbalized by the patient): Female Spiritual care concerns: No Agree to blood products: No Meds Home Medications and Allergies Home Medications Medication Instructions Recorded Confirmed Type fluticasone furoate 100 2 inh inhalation PRN shortness of 08/15/22 03/03/25 History mcg/actuation blister powder for breath and weezing inhalation (Arnuity Ellipta) oxybutynin chloride 5 mg tablet 10 mg PO Q12H 08/15/22 03/03/25 History Allergies Allergy/AdvReac Type Severity Reaction Status Date / Time shrimp Allergy Unknown NAUSEA Verified 03/02/25 22:53 Vital Signs Vital Signs - 24 hr 03/02/25 23:12 03/02/25 23:17 03/02/25 23:18 Temperature Pulse Rate 87 85 83 Respiratory Rate 22 H 14 14 Blood Pressure 164/78 H 155/84 H 155/84 H Pulse Oximetry 96 96 96 03/02/25 23:30 03/02/25 23:53 03/03/25 00:02 Temperature 98.1 F Pulse Rate 83 79 Respiratory Rate 13 14 Blood Pressure 172/103 H 106/75 Pulse Oximetry 96 91 03/03/25 00:17 03/03/25 00:32 03/03/25 01:31 Temperature Pulse Rate 85 81 82 Respiratory Rate 21 H 20 21 H Blood Pressure 142/58 H 139/59 L 115/57 L Pulse Oximetry 88 L 91 93 03/03/25 01:46 03/03/25 01:48 03/03/25 02:05 Temperature 99.3 F Pulse Rate 81 80 79 Respiratory Rate 12 19 18 Blood Pressure 113/54 L 113/54 L 152/77 H Pulse Oximetry 92 93 96 03/03/25 05:57 Temperature 98.8 F Pulse Rate 80 Respiratory Rate 20 Blood Pressure 112/40 L Pulse Oximetry 93 Exam Const: General: comfortable and no acute distress HENMT: Face/Nose/Sinus: Normal nares present Eyes: General: appearance normal, both eyes and all related structures Resp: Effort & Inspection: normal respiratory effort GI: Other: Abdomen obese : Other: Right CVA tenderness Skin: General skin exam: normal color Neuro: Speech: normal speech Psych: Speech and movement: Normal speech and movement present Results Labs 03/02/25 23:20 03/02/25 23:20 Labs: Short CBC 03/02/25 Range/Units 23:20 WBC 13.2 H (4.5-10.0) K/mm3 Hgb 14.0 D (12.0-15.0) g/dL Hct 43.6 (37.0-47.0) % Plt Count 283 D (150-375) k/mm3 BMP 03/02/25 23:20 Sodium 140 Potassium 4.0 Chloride 105 Carbon Dioxide 24 BUN 24 H Creatinine 0.98 Glucose 119 H Calcium 9.9 Liver Function 03/02/25 Range/Units 23:20 Total Bilirubin 1.2 (0.2-1.3) mg/dL AST 23 (14-36) U/L ALT 20 (6-35) U/L Alkaline Phosphatase 103 (38-126) U/L Albumin 4.5 (3.5-5.1) g/dL Urine 03/02/25 Range/Units 23:20 Urine Color Dark yellow (Yellow) Urine Appearance Turbid H (Clear) Urine pH 5.5 (5.0-9.0) Ur Specific [place] 1.020 (1.001-1.035) Urine Protein 2+ H (Negative) mg/dL Urine Glucose (UA) Negative (Negative) mg/dL
[2025-03-03] MEDS: PANTOPRAZOLE SODIUM IV 40 MG VIAL IV PUSH (08:39)
[2025-03-03 10:59] LABS: Magnesium 1.6 mg/dL (1.6-2.3)
--- NOTE | 2025-03-03 11:17 | P.PNIM_ITS ---
Progress Note: A&P Assessment and Plan (1) Urolithiasis: Qualifiers: Urinary calculus location: ureter Qualified Code(s): N20.1 - Calculus of ureter Code(s): N20.9 - Urinary calculus, unspecified Status: Acute Assessment and Plan: * CT abdomen pelvis w/o contrast showed: 6 mm stone at the right UPJ causing mild obstructive uropathy. * Urology consulted. * NPO for possible stent placement. (2) UTI (urinary tract infection): Qualifiers: Hematuria presence: with hematuria Urinary tract infection type: acute cystitis Qualified Code(s): N30.01 - Acute cystitis with hematuria Code(s): N39.0 - Urinary tract infection, site not specified Status: Acute Assessment and Plan: * Urine turbid, protein 2+, trace ketones, 3+ blood, + nitrate, 3+ leukocytes, RBC >100, WBC>100. 1+ bacteria. * Ceftriaxone 1 gram IVPB daily. * Urine culture pending. * NS @ 100 ml/hr. * Blood cultures pending. * WBC 13.2. (3) Nausea & vomiting: Code(s): R11.2 - Nausea with vomiting, unspecified Status: Acute Assessment and Plan: * Denies at present. * Ondansetron 4 mg IVP q 4 PRN. * Pantoprazole 40 mg ivp daily. Subjective Date/time seen: 03/03/25 11:17 Interval history: Patient reports pain in back that is a 4 , frequent, and aching. Patient reports tenderness on left side right now instead of right. Patient denies chest pain, palpitations, headache, dizziness, nausea, or vomiting. Review of Systems Review of Systems: All systems reviewed & are unremarkable except as noted in HPI and below Exam Const: General: no acute distress and uncomfortable Resp: Effort & Inspection: normal respiratory effort Auscultation: clear to auscultation bilaterally Cardio: Rate: regular rate Rhythm: regular rhythm GI: GI Palp: Yes Soft to palpation Auscultation: normal bowel sounds : Other: left CVA tenderness. Neuro: Speech: normal speech Extrem: General: no pedal edema Psych: Mental Status: mental status grossly normal Affect: normal affect Objective Data Vital Signs Vital Signs: Vital Signs - 24 hr 03/02/25 23:12 03/02/25 23:17 03/02/25 23:18 Temperature Pulse Rate 87 85 83 Respiratory Rate 22 H 14 14 Blood Pressure 164/78 H 155/84 H 155/84 H Pulse Oximetry 96 96 96 Oxygen Delivery 03/02/25 23:30 03/02/25 23:53 03/03/25 00:02 Temperature 98.1 F Pulse Rate 83 79 Respiratory Rate 13 14 Blood Pressure 172/103 H 106/75 Pulse Oximetry 96 91 Oxygen Delivery 03/03/25 00:17 03/03/25 00:32 03/03/25 01:31 Temperature Pulse Rate 85 81 82 Respiratory Rate 21 H 20 21 H Blood Pressure 142/58 H 139/59 L 115/57 L Pulse Oximetry 88 L 91 93 Oxygen Delivery 03/03/25 01:46 03/03/25 01:48 03/03/25 02:05 Temperature 99.3 F Pulse Rate 81 80 79 Respiratory Rate 12 19 18 Blood Pressure 113/54 L 113/54 L 152/77 H Pulse Oximetry 92 93 96 Oxygen Delivery 03/03/25 05:57 03/03/25 08:30 Temperature 98.8 F Pulse Rate 80 Respiratory Rate 20 Blood Pressure 112/40 L Pulse Oximetry 93 Oxygen Delivery Room Air Intake/Output Intake/Output: Intake & Output 02/28/25 03/01/25 03/02/25 03/03/25 23:59 23:59 23:59 23:59 Intake Total 550 Output Total 200 Balance 350 Meds/Results Medications: Active Medications Generic Name Dose Route Start Last Admin Trade Name Freq PRN Reason Stop Dose Admin Acetaminophen 650 mg 03/03/25 00:53 Acetaminophen 650 Mg Suppository RECTAL Q6H PRN Mild Pain (1-3) or Fever Dextrose 12.5 gm 03/03/25 00:53 Dextrose 50% 25 Gm/50 Ml Syringe IV PUSH PRN PRN Hypoglycemia Protocol Glucagon 1 mg 03/03/25 00:53 Glucagon For Inj 1 Mg Vial IM PRN PRN Hypoglycemia Protocol Glucose 15 gm 03/03/25 00:53 Glucose Oral Gel 15 Gm Of Glucse In 37.5 Gm Tube PO PRN PRN Hypoglycemia Protocol Ceftriaxone Sodium 1 gm in 50 mls @ 100 mls/hr 03/04/25 00:00 Rocephin 1 Gm/Ns 50 Ml IVPB Q24H TRAVIS Sodium Chloride 1,000 mls @ 100 mls/hr 03/03/25 00:55 03/03/25 02:08 Normal Saline Iv IV CONT 100 mls/hr .Q10H TRAVIS Administration Dextrose 1,000 mls @ 100 mls/hr 03/03/25 00:53 Dextrose 5% 1,000 Ml IVPB PRN PRN Hypoglycemia Protocol Morphine Sulfate 2 mg 03/03/25 00:53 Morphine Sulfate (*Crx) 2 Mg/Ml Inj IV PUSH Q2H PRN Pain Rated 7-10 Ondansetron HCl 4 mg 03/03/25 00:53 Ondansetron Inj 4 Mg/2 Ml Vial IV PUSH Q4H PRN Nausea Pantoprazole Sodium 40 mg 03/03/25 09:00 03/03/25 08:39 Pantoprazole Sodium Iv 40 Mg Vial IV PUSH 40 mg DAILY TRAVIS Administration Radiology Results: ITS Impressions Abdomen/Pelvis CT 03/03/25 00:01 IMPRESSION: 6 mm stone at the right UPJ causing mild obstructive uropathy. Abdomen X-Ray 03/03/25 05:40 Impression: Small right lower pole renal stone. Labs Labs: Laboratory Results - last 24 hr 03/02/25 03/03/25 03/03/25 23:20 01:02 08:52 WBC 13.2 H RBC 4.94 Hgb 14.0 D Hct 43.6 MCV 88.3 MCH 28.3 MCHC 32.1 RDW 14.0 Plt Count 283 D MPV 9.9 Immature Gran % (Auto) 0.5 Neut % (Auto) 66.7 Lymph % (Auto) 21.4 [place] % (Auto) 8.4 Eos % (Auto) 2.5 Baso % (Auto) 0.5 Lymph # (Auto) 2.82 [place] # (Auto) 1.1 H Eos # (Auto) 0.3 Baso # (Auto) 0.1 Abs Immat Gran (auto) 0.07 H Absolute Neuts (auto) 8.8 H Absolute Nucleated RBC 0.000 Nucleated RBC % 0.0 Sodium 140 Potassium 4.0 Chloride 105 Carbon Dioxide 24 Anion Gap 11 BUN 24 H Creatinine 0.98 Estim Creat Clear Calc 50 Estimated GFR 55 L Glucose 119 H Lactic Acid 0.9 Calcium 9.9 Magnesium 1.6 Total Bilirubin 1.2 AST 23 ALT 20 Alkaline Phosphatase 103 Total Protein 8.0 Albumin 4.5 Urine Color Dark yellow Urine Appearance Turbid H Urine pH 5.5 Ur Specific [place] 1.020 Urine Protein 2+ H Urine Glucose (UA) Negative Urine Ketones Trace H Ur Blood (Man) 3+ H Urine Nitrate Positive H Urine Bilirubin Negative Urine Urobilinogen 1.0 Add Ur Microanalysis Reviewed Leukocyte Esterase Rfl 3+ H Urine RBC >100 H Urine WBC >100 H Ur Squamous Epith Cells Few Urine Bacteria 1+ H Urine Casts 0-2 Quality VTE Prophylaxis VTE prophylaxis: mechanical ordered
--- NOTE | 2025-03-03 12:54 | WPDHPUPDATE1 ---
History and Physical Update Update Date/Time: 03/03/25 12:54 History and Physical has been reviewed, including an updated exam of the patient. There are NO changes in the patient's condition. Risks, benefits, and alternatives have been discussed and questions answered. Patient agrees to proceed with procedure. Proceed with cystoscopy with right retrograde right stent placement
--- NOTE | 2025-03-03 13:35 | SUR.PREOP ---
1300 PROCEEDURE DELAY, PT BACK TO FLOOR ROOM PER WHEELCHAIR
[2025-03-04] VITALS (9 sets, daily range): BP systolic 96–151; BP diastolic 60–71; PULSE 59–75; RESP 13–18; TEMP 35.9–36.9; O2SAT 93–98
[2025-03-04] MEDS: SODIUM CHLORIDE 0.9% IV 1,000 ML 100 ML IV CONT (05:50)
[2025-03-04 06:03] LABS: Basophils Absolute Auto 0.1 K/mm3 (0.0-0.1); Basophils Percent Auto 0.6 % (0.2-1.2); Eosinophils Absolute Auto 0.2 K/mm3 (0-0.3); Eosinophils Percent Auto 2.6 % (0-4.4); Hematocrit 39.7 % (37.0-47.0); Hemoglobin 12.4 g/dL (12.0-15.0); Immature Granulocyte Absolute 0.04 K/mm3 (0.00-0.031); Immature Granulocyte Percent A 0.4 % (0-0.5); Lymphocytes Absolute Auto 2.18 K/mm3 (0.9-3.2); Lymphocytes Percent Auto 23.5 % (18.3-44.2); Mean Corpuscular HGB Conc 31.2 g/dl (32-36); Mean Corpuscular Hemoglobin 28.4 pg (26-34); Mean Corpuscular Volume 91.1 fl (80-100); Mean Platelet Volume 9.8 fl (7.4-10.4); Monocytes Absolute Auto 1.1 K/mm3 (0.1-0.6); Monocytes Percent Auto 11.7 % (2.6-8.5); Neutrophils Absolute Auto 5.7 K/mm3 (1.3-6.7); Neutrophils Percent Auto 61.2 % (45.5-73.1); Platelet Count Result 215 k/mm3 (150-375); Red Blood Count 4.36 M/mm3 (4.2-5.4); Red Cell Distribution Width 14.2 % (11.5-14.5); White Blood Count 9.3 K/mm3 (4.5-10.0)
[2025-03-04 06:34] LABS: Alanine Aminotransferase 14 U/L (6-35); Albumin Level 3.6 g/dL (3.5-5.1); Alkaline Phosphatase 72 U/L (38-126); Anion Gap 7 mmol/L (4-12); Aspartate Amino Transferase 18 U/L (14-36); Bilirubin,Total 0.8 mg/dL (0.2-1.3); Blood Urea Nitrogen 16 mg/dL (7-17); Calcium 9.1 mg/dL (8.4-10.2); Carbon Dioxide 25 mmol/L (22-30); Chloride 107 mmol/L (98-107); Estimated CRCL calculation 64 ml/min; Estimated Glomerular Filt Rate > 60; Glucose 98 mg/dL (65-110); Potassium 4.1 mmol/L (3.4-5.0); Sodium 139 mmol/L (137-145)
[2025-03-04] MEDS: PANTOPRAZOLE SODIUM IV 40 MG VIAL IV PUSH (08:22)
--- NOTE | 2025-03-04 10:46 | WPDANESPN ---
Anes - Prog Note Post-Op Date/Time: 03/04/25 10:46 Vital Signs: Last Vital Signs Temp 35.9 C L 03/04/25 05:46 Pulse 74 03/04/25 05:46 Resp 17 03/04/25 05:46 BP 151/67 H 03/04/25 05:46 Pulse Ox 93 03/04/25 05:46 O2 Del Method Room Air 03/03/25 12:45 Pain Score (VAS): 0 I/O: Intake & Output 03/03/25 03/04/25 03/04/25 23:59 07:59 15:59 Intake Total 790 1000 Output Total 1000 800 Balance -210 200 Laboratory Tests 03/04/25 05:29 03/04/25 05:29 03/03/25 03/04/25 08:52 05:29 WBC 9.3 RBC 4.36 Hgb 12.4 Hct 39.7 MCV 91.1 MCH 28.4 MCHC 31.2 L RDW 14.2 Plt Count 215 MPV 9.8 Immature Gran % (Auto) 0.4 Neut % (Auto) 61.2 Lymph % (Auto) 23.5 [place] % (Auto) 11.7 H Eos % (Auto) 2.6 Baso % (Auto) 0.6 Lymph # (Auto) 2.18 [place] # (Auto) 1.1 H Eos # (Auto) 0.2 Baso # (Auto) 0.1 Abs Immat Gran (auto) 0.04 H Absolute Neuts (auto) 5.7 Absolute Nucleated RBC 0.000 Nucleated RBC % 0.0 Sodium 139 Potassium 4.1 Chloride 107 Carbon Dioxide 25 Anion Gap 7 BUN 16 Creatinine 0.74 Estim Creat Clear Calc 64 Estimated GFR > 60 Glucose 98 Calcium 9.1 Magnesium 1.6 Total Bilirubin 0.8 AST 18 ALT 14 Alkaline Phosphatase 72 Total Protein 6.0 L Albumin 3.6 Microbiology 03/02/25 23:20 Urine Clean Catch Urine Culture - Preliminary Escherichia Coli 03/03/25 01:02 Blood Blood Culture - Preliminary 03/03/25 01:02 Blood Blood Culture - Preliminary Patient Feedback: Patient satisfied with anesthetic care.
--- NOTE | 2025-03-04 10:55 | WPDANESEPPF ---
Anes - Initial Pre Proc Eval Procedure: Operation Date: 03/03/25 13:45 Proposed Procedures p Cystoscopy, Right Retrograde Pyelogram, Right Stent Placement, Possible Right Ureteroscopy, Possible Right Stone Extraction, Possible Holmium Laser - Rosendo Dina Herrera MD Operation Date: 03/04/25 12:00 Proposed Procedures p Cystoscopy, Right Retrograde Pyelogram, Right Stent Placement, Possible Right Ureteroscopy, Possible Right Stone Extraction, Possible Holmium Laser - Rosendo Dina Herrera MD Date/Time: 03/04/25 10:55 Surgeon: Ravinder Blackwell MD Pre Op Diagnosis: R UPJ stone, UTI Patient Data Age: 74 Gender: F Height: 1.57 m Weight: 105.2 kg Last Vital Signs Temp 35.9 C L 03/04/25 05:46 Pulse 74 03/04/25 05:46 Resp 17 03/04/25 05:46 BP 151/67 H 03/04/25 05:46 Pulse Ox 93 03/04/25 05:46 O2 Del Method Room Air 03/03/25 12:45 Allergies Allergy/AdvReac Type Severity Reaction Status Date / Time shrimp Allergy Unknown NAUSEA Verified 03/02/25 22:53 Home Medications Medication Instructions Recorded Confirmed Type fluticasone furoate 100 2 inh inhalation PRN shortness of 08/15/22 03/03/25 History mcg/actuation blister powder for breath and weezing inhalation (Arnuity Ellipta) oxybutynin chloride 5 mg tablet 10 mg PO Q12H 08/15/22 03/03/25 History Laboratory Tests 03/03/25 03/04/25 08:52 05:29 WBC 9.3 K/mm3 (4.5-10.0) RBC 4.36 M/mm3 (4.2-5.4) Hgb 12.4 g/dL (12.0-15.0) Hct 39.7 % (37.0-47.0) MCV 91.1 fl (80-100) MCH 28.4 pg (26-34) MCHC 31.2 L g/dl (32-36) RDW 14.2 % (11.5-14.5) Plt Count 215 k/mm3 (150-375) MPV 9.8 fl (7.4-10.4) Immature Gran % (Auto) 0.4 % (0-0.5) Neut % (Auto) 61.2 % (45.5-73.1) Lymph % (Auto) 23.5 % (18.3-44.2) [place] % (Auto) 11.7 H % (2.6-8.5) Eos % (Auto) 2.6 % (0-4.4) Baso % (Auto) 0.6 % (0.2-1.2) Lymph # (Auto) 2.18 K/mm3 (0.9-3.2) [place] # (Auto) 1.1 H K/mm3 (0.1-0.6) Eos # (Auto) 0.2 K/mm3 (0-0.3) Baso # (Auto) 0.1 K/mm3 (0.0-0.1) Abs Immat Gran (auto) 0.04 H K/mm3 (0.00-0.031) Absolute Neuts (auto) 5.7 K/mm3 (1.3-6.7) Absolute Nucleated RBC 0.000 K/mm3 (0.0-0.012) Nucleated RBC % 0.0 % (0.0-0.2) Sodium 139 mmol/L (137-145) Potassium 4.1 mmol/L (3.4-5.0) Chloride 107 mmol/L (98-107) Carbon Dioxide 25 mmol/L (22-30) Anion Gap 7 mmol/L (4-12) BUN 16 mg/dL (7-17) Creatinine 0.74 mg/dL (0.7-1.0) Estim Creat Clear Calc 64 ml/min Estimated GFR > 60 (59 - ) Glucose 98 mg/dL (65-110) Calcium 9.1 mg/dL (8.4-10.2) Magnesium 1.6 mg/dL (1.6-2.3) Total Bilirubin 0.8 mg/dL (0.2-1.3) AST 18 U/L (14-36) ALT 14 U/L (6-35) Alkaline Phosphatase 72 U/L (38-126) Total Protein 6.0 L g/dL (6.3-8.2) Albumin 3.6 g/dL (3.5-5.1) Patient hx anesthesia problems: none Family hx anesthesia problems: none Results Review: All pre-operative results and documents have been reviewed as part of the pre-operative evaluation. FORMERLY [facility] Past Medical History Medical History Abscess of right lower extremity Osteopenia after menopause Bone density scan April 2019 Obstructive sleep apnea Polysomnogram 2014 recommended CPAP of 6 Herpes zoster dermatitis 2008 Chronic allergic rhinitis Morbid obesity Chronic lower back pain Outpatient MRI May 2019 demonstrating mild spondylosis Urolithiasis Surgical History Surgical History Status post open reduction with internal fixation of fracture Right ankle February 2009 H/O colonoscopy with polypectomy X4 History of tonsillectomy and adenoidectomy Family History Family History Father , at 94 years old CHF (congestive heart failure) COPD (chronic obstructive pulmonary disease) Mother , at 58 years old Liver cancer Social History Social History Social History: The patient reports that she quit smoking in 2007. She denies any alcohol use or illicit substance use. She has been for 47 years. She has 2 adult children who are healthy. 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 Smoking packs per day: 1.5 Smoking cigarettes per day: 30.0 Years smoked: 40 Smoking pack-years: 60.00 Smoking status: Former smoker Tobacco type: cigarettes Second hand tobacco smoke exposure: Yes Alcohol intake: former Alcohol use details: rarely Substance use: never Substance use type: does not use Do You Feel Safe in your Home?: Yes Lack of Transportation: No Lack of Food: Never True Current Housing: I Have Housing Concerned About Future Housing: No Difficulty Paying Gas/Electric Bills: No Difficulty Paying for Meds: No Currently Unemployed: No Education: Master's Degree or Higher Difficulty w/ Childcare or Family Care: No Living arrangements: with family Occupation/Education: retired Additional occupation/education comments: [employer] Gender identity (if verbalized by the patient): Female Spiritual care concerns: No Agree to blood products: No Anes - Eval Final PreProcedure Day of Procedure 03/04/25 10:55 Patient weight: morbidly obese Heart: regular rate and rhythm Lungs: clear to auscultation Airway: Mallampati scale class II Neurological: alert and oriented Last oral intake: >/= 8 hours ASA classification: III Emergent: no Anesthetic plan: proceed Anesthesia type and monitoring: general LMA and standard monitoring Results Review: All pre-operative results and documents have been reviewed as part of the pre-operative evaluation. Informed Consent: The patient's anesthetic plan and its attendant risks and benefits were discussed with the patient/family/POA. Questions were solicited and answers provided to the satisfaction of the patient/family/POA.
[2025-03-04] MEDS: LACTATED RINGERS 1,000 ML 30 ML IV CONT (11:00)
[2025-03-04] MEDS: ACETAMINOPHEN 500 MG TABLET 1000 MG PO (11:00)
--- NOTE | 2025-03-04 11:03 | WPDHPUPDATE1 ---
History and Physical Update Update Date/Time: 03/04/25 11:03 History and Physical has been reviewed, including an updated exam of the patient. There are NO changes in the patient's condition. Risks, benefits, and alternatives have been discussed and questions answered. Patient agrees to proceed with procedure.
[2025-03-04] MEDS: LIDOCAINE 2% GEL UROJET 10 ML PKG MUCOUS MEM (11:41)
--- NOTE | 2025-03-04 12:37 | W.PM.PROC2 ---
Procedure Note - Detailed Date of Procedure 03/04/25 Pre-op Diagnosis R UPJ stone, UTI Post-op Diagnosis Same Procedure Performed Cystoscopy, right retrograde pyelogram, right ureteral stent placement 4.8 [place] contour Surgeon Rosendo Herrera MD Anesthesia General Description of Procedure Patient was taken to the operative suite correctly identified. Once anesthesia was obtained she was placed in dorsal lithotomy position and prepped and draped usual sterile fashion. Nineteen [place] scope was inserted into the bladder. She has significant prolapse. I had to place a vaginal pack to trying get more were normal anatomy. The right ureteral orifice was finally visualized the end placed. Ureteral catheter was then inserted pyelogram was performed to confirm placement of the stent. 4.8 [place] contour stent was placed with the proximal end coiled in the renal pelvis and the distal in the bladder. 2% viscous lidocaine was inserted into the urethra. The stone was never visualized. Plan will be for a CT renal stone protocol to evaluate for stone location. She may need ureteroscopy for definitive stone treatment once her urinary tract infection clears. This completes dictation. Please send a copy of op note to my office. Estimated Blood Loss 0 Urine Output 300 Drains Yes Packing No Pathology None sent Complications No immediate complications Condition Stable Disposition PACU
[2025-03-04] MEDS: polyethylene glycoL 3350 17 GM POWD.PACK PO (15:16)
[2025-03-04 17:01] LABS: Glucose Point of Care 108 mg/dl (65-105)
--- NOTE | 2025-03-04 17:14 | P.PNIM_ITS ---
Progress Note: A&P Assessment and Plan (1) Urolithiasis: Qualifiers: Urinary calculus location: ureter Qualified Code(s): N20.1 - Calculus of ureter Code(s): N20.9 - Urinary calculus, unspecified Status: Acute Assessment and Plan: * CT abdomen pelvis w/o contrast showed: 6 mm stone at the right UPJ causing mild obstructive uropathy. * Urology consulted. * underwent stent placement 03/04/25. (2) UTI (urinary tract infection): Qualifiers: Hematuria presence: with hematuria Urinary tract infection type: acute cystitis Qualified Code(s): N30.01 - Acute cystitis with hematuria Code(s): N39.0 - Urinary tract infection, site not specified Status: Acute Assessment and Plan: * Urine turbid, protein 2+, trace ketones, 3+ blood, + nitrate, 3+ leukocytes, RBC >100, WBC>100. 1+ bacteria. * Ceftriaxone IVPB daily. * Urine culture pending. . * Blood cultures pending. * WBC 13.2-->9.3. (3) Nausea & vomiting: Code(s): R11.2 - Nausea with vomiting, unspecified Status: Acute Assessment and Plan: * Denies at present. * Ondansetron 4 mg IVP q 4 PRN. * Pantoprazole 40 mg ivp daily. Subjective Date/time seen: 03/04/25 17:14 Interval history: per HPI: year-old female with a past medical history of kidney stones presented to ED due to right flank pain. Patient reports the the pain started around 10:00 p.m. Pertinent ED labs: WBC 13.2, hemoglobin 14, hematocrit 43.6, platelet 283, sodium 140, potassium 4, creatinine 0.9, creatinine clearance greater than 50 UA: Positive for nitrates and leukocyte esterase,WBC>[address]:6 mm stone at the right UPJ causing mild obstructive uropathy Patient was evaluated at the bedside. Patient reports previous history of sepsis due to UTI 5 years ago and was placed stent which was later removed by Dr. Carmona. Patient is admitted in the setting of UA possibly due to obstructive nephropathy. ED provider already spoke with urologist. Possible stent placement tomorrow. Hold anticoagulation and NPO. Patient started on Rocephin. 03/04/25 Patient was seen and examined at bedside. she underwent cystoscopy and stent placement today Patient denies chest pain, palpitations, headache, dizziness, nausea, or vomiting. C/W Rocephin for possible UTI. Review of Systems Review of Systems: All systems reviewed & are unremarkable except as noted in HPI. All systems reviewed & are unremarkable except as noted in HPI and below Exam Narrative: GENERAL: Well appearing, morbidly obese with BMI of 43.1, non-toxic, in no acute distress. HEAD: Normocephalic, atraumatic. RESPIRATORY: Airway patent, respirations nonlabored. Clear to auscultation bilaterally, no rales, rhonchi, wheezing. CARDIOVASCULAR: Regular rate and rhythm without murmurs, rubs, or gallops. ABDOMINAL: Soft, milld LL Q tender nondistended. Normoactive BS. No significant reproducible CVA tenderness. MUSCULOSKELETAL: Moves all extremities. No gross deformities. SKIN: Warm, dry, normal color. NEURO: A&O X3. Speech clear. PSYCHIATRIC: Appropriate mood and affect. Normal interaction. Const: General: no acute distress and uncomfortable Resp: Effort & Inspection: normal respiratory effort Auscultation: clear to auscultation bilaterally Cardio: Rate: regular rate Rhythm: regular rhythm GI: Auscultation: normal bowel sounds : Other: left CVA tenderness. Neuro: Speech: normal speech Extrem: General: no pedal edema Psych: Mental Status: mental status grossly normal Affect: normal affect Objective Data Vital Signs Vital Signs: Vital Signs - 24 hr 03/03/25 20:53 03/04/25 05:46 03/04/25 10:45 Temperature 98.9 F 96.7 F L 97.5 F L Pulse Rate 94 74 73 Respiratory Rate 16 17 18 Blood Pressure 146/54 H 151/67 H 146/60 H Pulse Oximetry 95 93 96 Oxygen Delivery Oxygen Flow Rate 03/04/25 12:36 03/04/25 12:50 03/04/25 13:05 Temperature 98.5 F Pulse Rate 63 60 60 Respiratory Rate 16 16 16 Blood Pressure 96/61 L 103/68 127/67 Pulse Oximetry 96 93 97 Oxygen Delivery Simple Face Mask Simple Face Mask Nasal Cannula Oxygen Flow Rate 6 6 2 03/04/25 13:20 03/04/25 13:35 Temperature 97.0 F L Pulse Rate 59 L 59 L Respiratory Rate 18 18 Blood Pressure 126/66 125/71 Pulse Oximetry 97 98 Oxygen Delivery Nasal Cannula Nasal Cannula Oxygen Flow Rate 2 2 Intake/Output Intake/Output: Intake & Output 03/01/25 03/02/25 03/03/25 03/04/25 23:59 23:59 23:59 23:59 Intake Total 2340 1300 Output Total 1200 1100 Balance 1140 200 Meds/Results Medications: Active Medications Generic Name Dose Route Start Last Admin Trade Name Freq PRN Reason Stop Dose Admin Acetaminophen 650 mg 03/03/25 00:53 Acetaminophen 650 Mg Suppository RECTAL Q6H PRN Mild Pain (1-3) or Fever Dextrose 12.5 gm 03/03/25 00:53 Dextrose 50% 25 Gm/50 Ml Syringe IV PUSH PRN PRN Hypoglycemia Protocol Fluticasone Propionate 2 puff 03/03/25 20:00 Fluticasone Prop 110 Mcg Inhaler 12 Gm (*Sp) INHALATION Q12HRT PRN SOB/WHEEZING Glucagon 1 mg 03/03/25 00:53 Glucagon For Inj 1 Mg Vial IM PRN PRN Hypoglycemia Protocol Glucose 15 gm 03/03/25 00:53 Glucose Oral Gel 15 Gm Of Glucse In 37.5 Gm Tube PO PRN PRN Hypoglycemia Protocol Ceftriaxone Sodium 1 gm in 50 mls @ 100 mls/hr 03/04/25 00:00 03/04/25 00:31 Rocephin 1 Gm/Ns 50 Ml IVPB 100 mls/hr Q24H TRAVIS Administration Sodium Chloride 1,000 mls @ 100 mls/hr 03/03/25 00:55 03/04/25 05:50 Normal Saline Iv IV CONT 100 mls/hr .Q10H TRAVIS Administration Dextrose 1,000 mls @ 100 mls/hr 03/03/25 00:53 Dextrose 5% 1,000 Ml IVPB PRN PRN Hypoglycemia Protocol Morphine Sulfate 2 mg 03/03/25 00:53 Morphine Sulfate (*Crx) 2 Mg/Ml Inj IV PUSH Q2H PRN Pain Rated 7-10 Ondansetron HCl 4 mg 03/03/25 00:53 Ondansetron Inj 4 Mg/2 Ml Vial IV PUSH Q4H PRN Nausea Pantoprazole Sodium 40 mg 03/03/25 09:00 03/04/25 08:22 Pantoprazole Sodium Iv 40 Mg Vial IV PUSH 40 mg DAILY TRAVIS Administration Polyethylene Glycol 17 gm 03/04/25 15:08 03/04/25 15:16 Polyethylene Glycol 3350 17 Gm Powd.Pack PO 17 gm QAM PRN Administration Constipation Radiology Results: ITS Impressions Abdomen/Pelvis CT 03/03/25 00:01 IMPRESSION: 6 mm stone at the right UPJ causing mild obstructive uropathy. Abdomen X-Ray 03/03/25 05:40 Impression: Small right lower pole renal stone. Retrograde Pyelogram 03/04/25 12:52 IMPRESSION: 1. Right internal ureteral stent placement. Please refer to real-time procedural findings for details. Labs Labs: Laboratory Results - last 24 hr 03/04/25 03/04/25 05:29 16:51 WBC 9.3 RBC 4.36 Hgb 12.4 Hct 39.7 MCV 91.1 MCH 28.4 MCHC 31.2 L RDW 14.2 Plt Count 215 MPV 9.8 Immature Gran % (Auto) 0.4 Neut % (Auto) 61.2 Lymph % (Auto) 23.5 [place] % (Auto) 11.7 H Eos % (Auto) 2.6 Baso % (Auto) 0.6 Lymph # (Auto) 2.18 [place] # (Auto) 1.1 H Eos # (Auto) 0.2 Baso # (Auto) 0.1 Abs Immat Gran (auto) 0.04 H Absolute Neuts (auto) 5.7 Absolute Nucleated RBC 0.000 Nucleated RBC % 0.0 Sodium 139 Potassium 4.1 Chloride 107 Carbon Dioxide 25 Anion Gap 7 BUN 16 Creatinine 0.74 Estim Creat Clear Calc 64 Estimated GFR > 60 Glucose 98 POC Capillary Glucose 108 H Calcium 9.1 Total Bilirubin 0.8 AST 18 ALT 14 Alkaline Phosphatase 72 Total Protein 6.0 L Albumin 3.6 Quality VTE Prophylaxis VTE prophylaxis: mechanical ordered
[2025-03-04] MEDS: SODIUM CHLORIDE 0.9% IV 1,000 ML 50 ML IV CONT (18:30)
[2025-03-04 23:40] LABS: Glucose Point of Care 131 mg/dl (65-105)
[2025-03-05 05:16] LABS: Glucose Point of Care 120 mg/dl (65-105)
[2025-03-05 05:42] VITALS: BP 160/71; PULSE 74; RESP 16; TEMP 36.7; O2SAT 94
[2025-03-05 06:01] LABS: Basophils Absolute Auto 0.1 K/mm3 (0.0-0.1); Basophils Percent Auto 0.5 % (0.2-1.2); Eosinophils Absolute Auto 0.3 K/mm3 (0-0.3); Eosinophils Percent Auto 2.9 % (0-4.4); Hematocrit 37.2 % (37.0-47.0); Hemoglobin 11.6 g/dL (12.0-15.0); Immature Granulocyte Absolute 0.05 K/mm3 (0.00-0.031); Immature Granulocyte Percent A 0.5 % (0-0.5); Lymphocytes Absolute Auto 1.84 K/mm3 (0.9-3.2); Lymphocytes Percent Auto 19.3 % (18.3-44.2); Mean Corpuscular HGB Conc 31.2 g/dl (32-36); Mean Corpuscular Hemoglobin 28.2 pg (26-34); Mean Corpuscular Volume 90.5 fl (80-100); Mean Platelet Volume 9.9 fl (7.4-10.4); Monocytes Absolute Auto 0.9 K/mm3 (0.1-0.6); Monocytes Percent Auto 9.6 % (2.6-8.5); Neutrophils Absolute Auto 6.4 K/mm3 (1.3-6.7); Neutrophils Percent Auto 67.2 % (45.5-73.1); Platelet Count Result 219 k/mm3 (150-375); Red Blood Count 4.11 M/mm3 (4.2-5.4); Red Cell Distribution Width 13.9 % (11.5-14.5); White Blood Count 9.5 K/mm3 (4.5-10.0)
[2025-03-05 06:10] LABS: Alanine Aminotransferase 17 U/L (6-35); Albumin Level 3.4 g/dL (3.5-5.1); Alkaline Phosphatase 76 U/L (38-126); Anion Gap 7 mmol/L (4-12); Aspartate Amino Transferase 22 U/L (14-36); Bilirubin,Total 0.4 mg/dL (0.2-1.3); Blood Urea Nitrogen 14 mg/dL (7-17); Calcium 8.6 mg/dL (8.4-10.2); Carbon Dioxide 22 mmol/L (22-30); Chloride 109 mmol/L (98-107); Estimated CRCL calculation 69 ml/min; Estimated Glomerular Filt Rate > 60; Glucose 110 mg/dL (65-110); Potassium 3.7 mmol/L (3.4-5.0); Sodium 138 mmol/L (137-145)
[2025-03-05] MEDS: PANTOPRAZOLE SODIUM IV 40 MG VIAL IV PUSH (09:00)
--- NOTE | 2025-03-05 10:18 | WPDUROPN2 ---
Progress Note: A&P Assessment and Plan (1) Calculus of proximal right ureter: Code(s): N20.1 - Calculus of ureter Status: Acute (2) Urinary tract infection: Qualifiers: Hematuria presence: with hematuria Urinary tract infection type: acute cystitis Qualified Code(s): N30.01 - Acute cystitis with hematuria Code(s): N39.0 - Urinary tract infection, site not specified Status: Acute Plan - 6 mm right UPJ stone with mild obstructive uropathy - Urinary tract infection likely secondary to obstruction - History of nephrolithiasis with prior left ureteral stone treated with ESWL in 2019 - Microscopic hematuria with significant smoking history (40 pack-year, quit 2007) - Morbid obesity (BMI >40) Plan: - continue antibiotics based on culture results per primary team - Outpatient ureteroscopy for definitive stone treatment after UTI resolution (recommended over ESWL due to patient's body habitus). Will need a repeat urine culture in one week. - Pain control per primary team -ok to discharge from urology standpoint. Subjective Subjective Date/Time Seen: 03/05/25 10:18 Interval history: per HPI: year-old female with a past medical history of kidney stones presented to ED due to right flank pain. Patient reports the the pain started around 10:00 p.m. Pertinent ED labs: WBC 13.2, hemoglobin 14, hematocrit 43.6, platelet 283, sodium 140, potassium 4, creatinine 0.9, creatinine clearance greater than 50 UA: Positive for nitrates and leukocyte esterase,WBC>[address]:6 mm stone at the right UPJ causing mild obstructive uropathy Patient was evaluated at the bedside. Patient reports previous history of sepsis due to UTI 5 years ago and was placed stent which was later removed by Dr. Carmona. Patient is admitted in the setting of UA possibly due to obstructive nephropathy. 03/05/2025 Patient reports she is doing well and is ready to go home. Patient denies chest pain, palpitations, headache, dizziness, nausea, or vomiting. Review of Systems Constitutional: Constitutional: Denies weakness ENT: Reports Normal hearing present Cardiovascular: Cardiovascular: Denies chest pain and Denies dyspnea Respiratory: Respiratory: Denies dyspnea Gastrointestinal: Gastrointestinal: Reports abdominal pain (RLQ tenderness), Denies nausea and Denies vomiting Genitourinary: Genitourinary: Reports as per HPI Musculoskeletal: Musculoskeletal: Denies myalgias Neurologic: Reports Normal hearing present, Denies confusion and Denies weakness Psychiatric: Psychiatric: Denies confusion Exam Const: General: comfortable and no acute distress; No confusion Orientation/consciousness: No confusion HENMT: Face/Nose/Sinus: Normal nares present Eyes: General: appearance normal, both eyes and all related structures Resp: Effort & Inspection: normal respiratory effort GI: Other: Abdomen obese : Other: Right CVA tenderness Skin: General skin exam: normal color Neuro: General: No confusion Cranial nerves: Yes Normal hearing present Speech: normal speech Psych: Speech and movement: Normal speech and movement present Objective Data Vital Signs Vital Signs: Vital Signs - 24 hr 03/04/25 10:45 03/04/25 12:36 03/04/25 12:50 Temperature 97.5 F L 98.5 F Pulse Rate 73 63 60 Respiratory Rate 18 16 16 Blood Pressure 146/60 H 96/61 L 103/68 Pulse Oximetry 96 96 93 Oxygen Delivery Simple Face Mask Simple Face Mask Oxygen Flow Rate 6 6 03/04/25 13:05 03/04/25 13:20 03/04/25 13:35 Temperature 97.0 F L Pulse Rate 60 59 L 59 L Respiratory Rate 16 18 18 Blood Pressure 127/67 126/66 125/71 Pulse Oximetry 97 97 98 Oxygen Delivery Nasal Cannula Nasal Cannula Nasal Cannula Oxygen Flow Rate 2 2 2 03/04/25 20:00 03/04/25 21:42 03/05/25 05:42 Temperature 97.6 F 98.0 F Pulse Rate 75 74 Respiratory Rate 13 16 Blood Pressure 138/63 160/71 H Pulse Oximetry 94 94 94 Oxygen Delivery Nasal Cannula Oxygen Flow Rate 2 03/05/25 07:45 Temperature Pulse Rate Respiratory Rate Blood Pressure Pulse Oximetry Oxygen Delivery Room Air Oxygen Flow Rate Intake/Output Intake/Output: Intake & Output 03/02/25 03/03/25 03/04/25 03/05/25 23:59 23:59 23:59 23:59 Intake Total 2340 2590 500 Output Total 1200 1700 800 Balance 1140 890 -300 Meds/Results Medications: Active Medications Generic Name Dose Route Start Last Admin Trade Name Freq PRN Reason Stop Dose Admin Acetaminophen 650 mg 03/03/25 00:53 Acetaminophen 650 Mg Suppository RECTAL Q6H PRN Mild Pain (1-3) or Fever Dextrose 12.5 gm 05/13/25 00:53 Dextrose 50% 25 Gm/50 Ml Syringe IV PUSH PRN PRN Hypoglycemia Protocol Fluticasone Propionate 2 puff 03/03/25 20:00 Fluticasone Prop 110 Mcg Inhaler 12 Gm (*Sp) INHALATION Q12HRT PRN SOB/WHEEZING Glucagon 1 mg 03/03/25 00:53 Glucagon For Inj 1 Mg Vial IM PRN PRN Hypoglycemia Protocol Glucose 15 gm 03/03/25 00:53 Glucose Oral Gel 15 Gm Of Glucse In 37.5 Gm Tube PO PRN PRN Hypoglycemia Protocol Ceftriaxone Sodium 1 gm in 50 mls @ 100 mls/hr 03/04/25 00:00 03/04/25 23:57 Rocephin 1 Gm/Ns 50 Ml IVPB 100 mls/hr Q24H TRAVIS Administration Sodium Chloride 1,000 mls @ 50 mls/hr 03/03/25 00:55 03/04/25 18:30 Normal Saline Iv IV CONT 50 mls/hr .Q20H TRAVIS Administration Dextrose 1,000 mls @ 100 mls/hr 03/03/25 00:53 Dextrose 5% 1,000 Ml IVPB PRN PRN Hypoglycemia Protocol Morphine Sulfate 2 mg 03/03/25 00:53 Morphine Sulfate (*Crx) 2 Mg/Ml Inj IV PUSH Q2H PRN Pain Rated 7-10 Ondansetron HCl 4 mg 03/03/25 00:53 Ondansetron Inj 4 Mg/2 Ml Vial IV PUSH Q4H PRN Nausea Pantoprazole Sodium 40 mg 03/03/25 09:00 03/05/25 09:00 Pantoprazole Sodium Iv 40 Mg Vial IV PUSH 40 mg DAILY TRAVIS Administration Polyethylene Glycol 17 gm 03/04/25 15:08 03/04/25 15:16 Polyethylene Glycol 3350 17 Gm Powd.Pack PO 17 gm QAM PRN Administration Constipation Radiology Results: ITS Impressions Abdomen/Pelvis CT 03/03/25 00:01 IMPRESSION: 6 mm stone at the right UPJ causing mild obstructive uropathy. Abdomen X-Ray 03/03/25 05:40 Impression: Small right lower pole renal stone. Retrograde Pyelogram 03/04/25 12:52 IMPRESSION: 1. Right internal ureteral stent placement. Please refer to real-time procedural findings for details. Labs Labs: Laboratory Results - last 24 hr 03/04/25 03/04/25 03/05/25 16:51 23:37 05:13 WBC RBC Hgb Hct MCV MCH MCHC RDW Plt Count MPV Immature Gran % (Auto) Neut % (Auto) Lymph % (Auto) [place] % (Auto) Eos % (Auto) Baso % (Auto) Lymph # (Auto) [place] # (Auto) Eos # (Auto) Baso # (Auto) Abs Immat Gran (auto) Absolute Neuts (auto) Absolute Nucleated RBC Nucleated RBC % Sodium Potassium Chloride Carbon Dioxide Anion Gap BUN Creatinine Estim Creat Clear Calc Estimated GFR Glucose POC Capillary Glucose 108 H 131 H 120 H Calcium Total Bilirubin AST ALT Alkaline Phosphatase Total Protein Albumin 03/05/25 05:48 WBC 9.5 RBC 4.11 L Hgb 11.6 L Hct 37.2 MCV 90.5 MCH 28.2 MCHC 31.2 L RDW 13.9 Plt Count 219 MPV 9.9 Immature Gran % (Auto) 0.5 Neut % (Auto) 67.2 Lymph % (Auto) 19.3 [place] % (Auto) 9.6 H Eos % (Auto) 2.9 Baso % (Auto) 0.5 Lymph # (Auto) 1.84 [place] # (Auto) 0.9 H Eos # (Auto) 0.3 Baso # (Auto) 0.1 Abs Immat Gran (auto) 0.05 H Absolute Neuts (auto) 6.4 Absolute Nucleated RBC 0.000 Nucleated RBC % 0.0 Sodium 138 Potassium 3.7 Chloride 109 H Carbon Dioxide 22 Anion Gap 7 BUN 14 Creatinine 0.68 L Estim Creat Clear Calc 69 Estimated GFR > 60 Glucose 110 POC Capillary Glucose Calcium 8.6 Total Bilirubin 0.4 AST 22 ALT 17 Alkaline Phosphatase 76 Total Protein 6.0 L Albumin 3.4 L
--- NOTE | 2025-03-05 13:46 | P.DS_ITS ---
DS: Admitting Diagnosis Discharge Date 03/05/25 Admitting Diagnosis nephrolithiasis DS: Discharge Diagnosis Discharge Diagnosis (1) Urolithiasis: Qualifiers: Urinary calculus location: ureter Qualified Code(s): N20.1 - Calculus of ureter Code(s): N20.9 - Urinary calculus, unspecified Status: Acute Assessment and Plan: * CT abdomen pelvis w/o contrast showed: 6 mm stone at the right UPJ causing mild obstructive uropathy. * Urology consulted. * underwent stent placement 03/04/25. * follow as outpatient (2) UTI (urinary tract infection): Qualifiers: Hematuria presence: with hematuria Urinary tract infection type: acute cystitis Qualified Code(s): N30.01 - Acute cystitis with hematuria Code(s): N39.0 - Urinary tract infection, site not specified Status: Acute Assessment and Plan: * Urine turbid, protein 2+, trace ketones, 3+ blood, + nitrate, 3+ leukocytes, RBC >100, WBC>100. 1+ bacteria. * Augmentin * Urine culture Ecoli . * Blood cultures neg sofar. (3) Nausea & vomiting: Code(s): R11.2 - Nausea with vomiting, unspecified Status: Acute Assessment and Plan: * Denies at present. * DS: Summary Hospital Course Hospital Course: year-old female with a past medical history of kidney stones presented to ED due to right flank pain. Patient reports the the pain started around 10:00 p.m. Pertinent ED labs: WBC 13.2, hemoglobin 14, hematocrit 43.6, platelet 283, sodium 140, potassium 4, creatinine 0.9, creatinine clearance greater than 50 UA: Positive for nitrates and leukocyte esterase,WBC>[address]:6 mm stone at the right UPJ causing mild obstructive uropathy Patient was evaluated at the bedside. Patient reports previous history of sepsis due to UTI 5 years ago and was placed stent which was later removed by Dr. Carmona. Patient is admitted in the setting of UA possibly due to obstructive nephropathy. ED provider already spoke with urologist. Possible stent placement tomorrow. Hold anticoagulation and NPO. Patient started on Rocephin. 03/04/25 Patient was seen and examined at bedside. she underwent cystoscopy and stent placement today Patient denies chest pain, palpitations, headache, dizziness, nausea, or vomiting. C/W Rocephin for possible UTI. 03/05/25 patient was seen and examined at bedside. she is feeling better [place] chat pain, SOb, abd pain, N/V. Ct showed nonostruction stones. will dischrage patient . she needs follow up with urology as outpatient. UC positive for ECOli started on Augmentin. Status at Discharge Functional status at discharge: independent ambulation Overall status at discharge: patient is back to baseline Time Spent with Patient Time attestation: Total time spent providing and/or coordinating discharge services: Exam Narrative: GENERAL: Well appearing, morbidly obese with BMI of 43.1, non-toxic, in no acute distress. HEAD: Normocephalic, atraumatic. RESPIRATORY: Airway patent, respirations nonlabored. Clear to auscultation bilaterally, no rales, rhonchi, wheezing. CARDIOVASCULAR: Regular rate and rhythm without murmurs, rubs, or gallops. ABDOMINAL: Soft, milld LL Q tender nondistended. Normoactive BS. No significant reproducible CVA tenderness. MUSCULOSKELETAL: Moves all extremities. No gross deformities. SKIN: Warm, dry, normal color. NEURO: A&O X3. Speech clear. PSYCHIATRIC: Appropriate mood and affect. Normal interaction. Const: General: no acute distress and uncomfortable Resp: Effort & Inspection: normal respiratory effort Auscultation: clear to auscultation bilaterally Cardio: Rate: regular rate Rhythm: regular rhythm GI: Auscultation: normal bowel sounds : Other: left CVA tenderness. Neuro: Speech: normal speech Extrem: General: no pedal edema Psych: Mental Status: mental status grossly normal Affect: normal affect DS: Data Data Completed and Pending Labs on day of discharge: Labs from last 24 hours 03/05/25 03/05/25 03/04/25 05:48 05:13 23:37 WBC 9.5 RBC 4.11 L Hgb 11.6 L Hct 37.2 MCV 90.5 MCH 28.2 MCHC 31.2 L RDW 13.9 Plt Count 219 MPV 9.9 Immature Gran % (Auto) 0.5 Neut % (Auto) 67.2 Lymph % (Auto) 19.3 [place] % (Auto) 9.6 H Eos % (Auto) 2.9 Baso % (Auto) 0.5 Lymph # (Auto) 1.84 [place] # (Auto) 0.9 H Eos # (Auto) 0.3 Baso # (Auto) 0.1 Abs Immat Gran (auto) 0.05 H Absolute Neuts (auto) 6.4 Absolute Nucleated RBC 0.000 Nucleated RBC % 0.0 Sodium 138 Potassium 3.7 Chloride 109 H Carbon Dioxide 22 Anion Gap 7 BUN 14 Creatinine 0.68 L Estim Creat Clear Calc 69 Estimated GFR > 60 Glucose 110 POC Capillary Glucose 120 H 131 H Calcium 8.6 Total Bilirubin 0.4 AST 22 ALT 17 Alkaline Phosphatase 76 Total Protein 6.0 L Albumin 3.4 L 03/04/25 16:51 WBC RBC Hgb Hct MCV MCH MCHC RDW Plt Count MPV Immature Gran % (Auto) Neut % (Auto) Lymph % (Auto) [place] % (Auto) Eos % (Auto) Baso % (Auto) Lymph # (Auto) [place] # (Auto) Eos # (Auto) Baso # (Auto) Abs Immat Gran (auto) Absolute Neuts (auto) Absolute Nucleated RBC Nucleated RBC % Sodium Potassium Chloride Carbon Dioxide Anion Gap BUN Creatinine Estim Creat Clear Calc Estimated GFR Glucose POC Capillary Glucose 108 H Calcium Total Bilirubin AST ALT Alkaline Phosphatase Total Protein Albumin Preliminary micro results at discharge 03/03/25 01:02 Blood Culture - Preliminary Blood 03/03/25 01:02 Blood Culture - Preliminary Blood Discharge Plan Discharge Attending physician on discharge: Ravinder Blackwell Consulting providers: Yazan Gordon Discharging Clinician: Ravinder Blackwell Patient Disposition: Home Activity: as tolerated Diet: as tolerated Patient Instructions: Antibiotic Form Patient Language: Micronesian Stand Alone Forms: General Discharge Information Follow-up/Referrals: Rosendo Herrera MD [Physician] - Call for Appointment DellMary FNP [Primary Care Provider] - 1 Week Discharge Medications: New amoxicillin-pot clavulanate 875-125 mg tablet 1 tablet PO Q12H Qty: 10 0RF Continued Arnuity Ellipta 100 mcg/actuation blister with device 2 inh INHALATION PRN oxybutynin chloride 5 mg tablet 10 mg PO Q12H Rx Instructions: take three times a day Date of admission: 03/04/25 09:58 Primary Care Provider: KevenMary Admitting Provider: Jaquan Garnica Attending physician on admission: Ravinder Blackwell Condition: Stable Quality VTE Prophylaxis VTE prophylaxis: mechanical ordered
--- NOTE | 2025-03-05 14:14 | P.PNAN_ITS ---
Anes - Prog Note Post-Op Date/Time: 03/05/25 14:14 Cardiovascular status: normal Respiratory status: normal Airway patency: baseline Mental status: baseline Post-Op hydration status: normal Vital Signs: Last Vital Signs Temp 36.7 C 03/05/25 05:42 Pulse 74 03/05/25 05:42 Resp 16 03/05/25 05:42 BP 160/71 H 03/05/25 05:42 Pulse Ox 94 03/05/25 05:42 O2 Del Method Room Air 03/05/25 07:45 O2 Flow Rate 2 03/04/25 20:00 Pain Score (VAS): 12/29 I/O: Intake & Output 03/04/25 03/05/25 03/05/25 23:59 07:59 15:59 Intake Total 240 500 Output Total 600 800 Balance -360 -300 Laboratory Tests 03/05/25 05:48 03/05/25 05:48 03/04/25 03/04/25 03/05/25 16:51 23:37 05:13 WBC RBC Hgb Hct MCV MCH MCHC RDW Plt Count MPV Immature Gran % (Auto) Neut % (Auto) Lymph % (Auto) [place] % (Auto) Eos % (Auto) Baso % (Auto) Lymph # (Auto) [place] # (Auto) Eos # (Auto) Baso # (Auto) Abs Immat Gran (auto) Absolute Neuts (auto) Absolute Nucleated RBC Nucleated RBC % Sodium Potassium Chloride Carbon Dioxide Anion Gap BUN Creatinine Estim Creat Clear Calc Estimated GFR Glucose POC Capillary Glucose 108 H 131 H 120 H Calcium Total Bilirubin AST ALT Alkaline Phosphatase Total Protein Albumin 03/05/25 05:48 WBC 9.5 RBC 4.11 L Hgb 11.6 L Hct 37.2 MCV 90.5 MCH 28.2 MCHC 31.2 L RDW 13.9 Plt Count 219 MPV 9.9 Immature Gran % (Auto) 0.5 Neut % (Auto) 67.2 Lymph % (Auto) 19.3 [place] % (Auto) 9.6 H Eos % (Auto) 2.9 Baso % (Auto) 0.5 Lymph # (Auto) 1.84 [place] # (Auto) 0.9 H Eos # (Auto) 0.3 Baso # (Auto) 0.1 Abs Immat Gran (auto) 0.05 H Absolute Neuts (auto) 6.4 Absolute Nucleated RBC 0.000 Nucleated RBC % 0.0 Sodium 138 Potassium 3.7 Chloride 109 H Carbon Dioxide 22 Anion Gap 7 BUN 14 Creatinine 0.68 L Estim Creat Clear Calc 69 Estimated GFR > 60 Glucose 110 POC Capillary Glucose Calcium 8.6 Total Bilirubin 0.4 AST 22 ALT 17 Alkaline Phosphatase 76 Total Protein 6.0 L Albumin 3.4 L Microbiology 03/02/25 23:20 Urine Clean Catch Urine Culture - Final Escherichia Coli Post-procedural complaints: none Patient Feedback: Patient satisfied with anesthetic care.
== END 2025-03-05 15:10 | disposition home or self-care (01) | DRG 660 ==
LOC: ANHED 03-03 00:44 → ANH3MEDSUR 03-03 01:52
PROVIDERS: Nurse Practitioner Family; Urology; Admitting Provider General Practice; Emergency Provider Physician Assistant; PCP Nurse Practitioner Family; Visit Provider Internal Medicine
PROC: (CPT 52352; principal; 2025-03-03 13:45)
PROC: 0T768DZ Dilation of Right Ureter with Intraluminal Device, Via Natural or Artificial Opening Endoscopic (ICD-10-PCS; CPT 52352; principal; 2025-03-04 12:00)
DX: N20.1 Calculus of ureter (principal); N39.0 Urinary tract infection, site not specified; Z68.41 Body mass index [BMI] 40.0-44.9, adult; N13.9 Obstructive and reflux uropathy, unspecified; B96.20 Unspecified Escherichia coli [E. coli] as the cause of diseases classified elsewhere; R31.29 Other microscopic hematuria; G47.33 Obstructive sleep apnea (adult) (pediatric); E66.01 Morbid (severe) obesity due to excess calories; M85.80 Other specified disorders of bone density and structure, unspecified site; Z87.442 Personal history of urinary calculi; Z87.891 Personal history of nicotine dependence
CPT/HCPCS: 36415; 74018; 74176; 74420; 80053; 81001; 82948; 83605; 83735; 85025; 87040; 87086; 87186; 96361; 96365; 96375; 96376; 99285; A9270; C1758; C1769; C2617; G0378; J0696; J2250; J2270; J2405; J2470; J2704; J3010; J7030; J7040; J7120; Q9966

== ENCOUNTER 2025-03-18 06:32 | Outpatient (CLI) | payer MEDICARE, SELFPAY ==
--- NOTE | ~2025-03-18 | XR_ITS ---
XR abdomen/kub 1V 03/18/2025 06:50 INDICATION: Renal stone TECHNIQUE: KUB COMPARISON: 03/05/2025 FINDINGS: Bowel gas pattern is normal. There is no evidence of free air, mass, organomegaly, ascites or obstruction. No abnormal calculi are seen. The bones appear intact. There is a right internal u reteral stent. There is a stone in the proximal aspect of the right ureter. IMPRESSION: 1: Proximal right ureteral stone near the UPJ. Right internal ureteral stent in expected position. Reviewed, dictated and finalized at location A.
--- NOTE | ~2025-03-18 | CT_ITS ---
Non-contrast CT scan of the Abdomen and Pelvis Clinical indication: Renal stone Technique: 2.5 mm axial scans were obtained through the abdomen and pelvis without intravenous or or al contrast. Dose reduction technique was used on this scan by utilizing automated exposure control a nd iterative reconstruction technique. The dose-length product (DLP) was 907.16 mGy-cm. COMPARISON: 03/05/2025 Findings: Images through the lung bases reveal no abnormalities. Probable punctate nonobstructing left renal stones. No left ureteral stones or left hydronephrosis. R ight ureteral stent in place, with mild right hydronephrosis. No right-sided stones seen on the curre nt exam. Right renal cyst present. The liver, spleen, pancreas, and gallbladder appear normal. Stable probable small bilateral adrenal a denomas. There are atherosclerotic calcifications of the aorta. . There is no evidence of bowel obstruction. Images through the pelvis were performed. There is no evidence of ascites or lymphadenopathy. Urinary bladder unremarkable aside from the stent present. No pelvic mass seen. Impression: Right ureteral stent present, with mild right hydronephrosis. No right-sided stones seen on the curre nt exam. Punctate nonobstructing left renal stones. Reviewed, dictated and finalized at location . Impression: Right ureteral stent present, with mild right hydronephrosis. No right-sided st ones seen on the current exam. Punctate nonobstructing left renal stones.
--- OUTSIDE RECORDS SUMMARY | 2025-03-18 06:37 | XMS_ITS | Clinical Summary ---
Author Organization [facility] [address] Address [address] [place] [address] Care Team Providers Care Color Checker Name Role Phone Mary Sharpe NP Primary Care Provider [phone] Adelina Mac MD Unavailable [phone] Dagoberto Carmona MD Unavailable [phone] Allergies Active Allergy Reactions Criticality Noted [...] 11/25/2024 Assessment & Plan (11/25/2024 11:00 AM DISTRICT FIRE MANAGEMENT OFFICER): Improved with otc magnesium daily. Continue magnesium [...] treated Assessment & Plan (08/28/2023 3:37 PM DISTRICT FIRE MANAGEMENT OFFICER): Can only sleep for about 4 hours and wakes for bladder; feels she sleeps more than she should, wakes up with headaches and takes afternoon naps Encouraged patient to continue with biphasic sleep schedule; will refer to sleep Medicine for morning headaches which may be consistent with sleep apnea Urge incontinence of urine 09/05/2021 Assessment & Plan (11/25/2024 10:59 AM DISTRICT FIRE MANAGEMENT OFFICER): Stable. Followed by urologist - Dr. Carmona, - on oxybutynin xl Assessment & Plan (02/22/2024 8:27 PM CDT): Chronic. Controlled. Occasional stress leakage. Continue oxybutynin Assessment & Plan (08/28/2023 3:37 PM DISTRICT FIRE MANAGEMENT OFFICER): Goes to the bathroom every 4 hours; [...] management Assessment & Plan (09/05/2021 4:30 PM DISTRICT FIRE MANAGEMENT OFFICER): Stable, well controlled Continue oxybutynin 10 mg daily Mild persistent asthma without complication 06/2021 Assessment & Plan (11/25/2024 11:11 AM DISTRICT FIRE MANAGEMENT OFFICER): Restart flonase. Will try a different inhaler. Problem is cost of preventative inhaler. She was given arnuity. Will try advair/ wixela. Assessment & Plan (02/22/2024 8:27 PM CDT): Chronic. Controlled. Uses Arnuity seasonally when allergies causes to flare. Monitor. Continue prn albuterol Assessment & Plan (08/28/2023 3:37 PM DISTRICT FIRE MANAGEMENT OFFICER): Stable, well controlled; rare use of inhaler [...] daily Assessment & Plan (09/05/2021 4:28 PM DISTRICT FIRE MANAGEMENT OFFICER): Stable, well controlled; symptoms improved with use [...] Morbid obesity with BMI of 40.0-44.9, adult ([facility]) 08/18/2019 Assessment & Plan (11/26/2024 9:20 PM DISTRICT FIRE MANAGEMENT OFFICER): BMI Follow-up includes: education provided. Assessment & Plan (02/22/2024 8:29 PM CDT): Chronic. Suboptimally controlled. Slowly get back into exercising as able not that ankle better. Watch diet. monitor Assessment & Plan (08/28/2023 3:37 PM DISTRICT FIRE MANAGEMENT OFFICER): Stable, working on meal replacement; eats light [...] week Assessment & Plan (09/12/2022 3:25 PM DISTRICT FIRE MANAGEMENT OFFICER): Not well controlled, recent increase in weight [...] changes Assessment & Plan (09/05/2021 4:29 PM DISTRICT FIRE MANAGEMENT OFFICER): Stable, not well controlled; weight is stable, with approximately 3 lb weight loss since last visit Patient has begun to work on her weight, going to focus on portion control and healthy dietary choices using [employer]a plate to limit portions, healthy cooking at [...] p.r.n. Assessment & Plan (09/05/2021 4:29 PM DISTRICT FIRE MANAGEMENT OFFICER): Improved quality sleep, is able to reinitiate [...] sinuses Assessment & Plan (09/12/2022 3:25 PM DISTRICT FIRE MANAGEMENT OFFICER): Stable, well controlled Continue Astelin 1 spray [...] zoster 02/13/2015 02/22/2024 Overview (01/25/2017): Herpes zoster Encounters Date Type Department Care Team Description 03/06/2025 Orders Only [facility] Primary Care at [address] [address] Provider, MD Carlotta from Last 3 Months Immunizations Immunization Administration Dates Next Due COVID-19 [...] Pfizer SARS-CoV-2 Monovalent Vaccination (5-11 Yrs) 03/15/2022,09/12/2021,12/21/2020,11/18 Miroi Sars-Cov-2 Bivalent V accination (12+ YRS) 09/13/2022 Pneumococcal Conjugate PCV 13 11/07/2016 Pneumococcal Polysaccharide PPV23 06/14/2018 ZOSTER LIVE 01/21/2016 Surgical History Surgery Date Site/Laterality Comments LITHOTRIPSY 10/22/2018 - 10/21/2019 TONSILLECTOMY/ADENOIDECTOMY ANKLE SURGERY Right Fx repair Medical History Medical History Date Comments Hx Other Medical 02/13/2015 herpes zoster; Comments: DRS 03/25/2015 - Kidney stone 2018 Chickenpox Herpes zoster 02/13/2015 Herpes zoster Asthma [...] on file Legal Sex Female 6:33 AM DISTRICT FIRE MANAGEMENT OFFICER Gender Identity Not on file Sexual Orientation Not on file Obstetrics History Last Filed Vital Signs Vital Sign Reading Time Taken Comments Blood Pressure 130/82 11/25/2024 10:45 AM DISTRICT FIRE MANAGEMENT OFFICER Pulse 67 11/25/2024 10:45 AM DISTRICT FIRE MANAGEMENT OFFICER Temperature 36.4 C (97.6 F) 11/25/2024 10:45 AM DISTRICT FIRE MANAGEMENT OFFICER Respiratory Rate 18 11/25/2024 10:4 5 AM DISTRICT FIRE MANAGEMENT OFFICER Oxygen Saturation 93% 12/26/2023 2:13 PM DISTRICT FIRE MANAGEMENT OFFICER Inhaled Oxygen Concentration - - Weight 106.4 kg (234 lb 9.6 oz) 025 10:45 AM DISTRICT FIRE MANAGEMENT OFFICER Height 156.2 cm (5' 1.5) 11/25/2024 10 :45 AM DISTRICT FIRE MANAGEMENT OFFICER Body Mass Index 43.61 11/25/2024 10:45 AM DISTRICT FIRE MANAGEMENT OFFICER Plan of Treatment Health Maintenance Due Date Last Done Comments DTaP/Tdap/Td Vaccine (1 - Tdap) 1961 Zoster Vaccine (2 of 3) 03/17/2016 01/21/2016 Osteoporosis Screening-Bone Density Scan 05/12/2021 05/12/2019 Covid-19 Vaccine (2023-2 5 season) 2024 10/17/2023, 10/17/2023, 09/13/2022, Additional [...] Procedure Name Priority Date/Time Associated Diagnosis Comments CT ABDOMEN PELVIS WO CONTRAST Schedule Routine, Read Routine (OP Routine) 03/04/2025 4:26 PM CDT XR ABDOMEN AP 1 VIEW Schedule Routine, Read Routine (OP Routine) 03/04/2025 4:24 PM CDT RETROGRADE PYELOGRAM Schedule Routine, Read Routine (OP Routine) 03/04/2025 4:12 PM CDT HM COLONOSCOPY Routine 08/24/2022 DIAGNOSTIC MAMMOGRAM BILATERAL W FERDINAND Schedule Routine, Read Routine (OP Routine) 03/21/2022 Abnormal mammogram of both breasts HEPATITIS C ANTIBODY Routine 06/30/2021 10:22 AM CDT Annual physical exam from Last 3 Months or Most Recently Relevant to Health Maintenance Results * CT Abdomen Pelvis WO Contrast (03/04/2025 4:26 PM CDT) Anatomical Region Laterality Modality Body N/A Computed Tomogra phy Historical Provider MD ROSE CT PROCEDURES Final R esult * XR Abdomen 1 View AP (03/04/2025 4:24 PM CDT) Anatomical Region Laterality Modality Body, Abdomen N/A Radiographic Mandy ging Historical Provider MD ROSE XR PROCEDURES Final R esult * FL Retrograde Pyelogram (03/04/2025 4:12 PM CDT) Anatomical Region Laterality Modality Body N/A Radiographic Mandy ging Historical Provider MD ROSE FLUOROSCOPY PROCEDURE S Final Result * HM COLONOSCOPY (08/24/2022) Historical Provider HEALTH [...] GENERA L ORDERABLES Final Result AMEE DILLARD [id number] [place] [address] from Last 3 Months or Most Recently Relevant to Health Maintenance Insurance MEDICARE [facility] MEDICARE SUPPLEMENT INSURANCE MEDICARE [facility] MEDICARE SUPPLEMENT INSURANCE Care Teams Color Checker Relationship Specialty Start Date End Date Mary Shapre NP [address] [place] [address] PCP - General Family Medicine 11/25/24 Adelina Mac MD [address] [place] [address] Referring Physician Dermatology 11/25/24 Dagoberto Carmona MD [address] [place] [address] Consulting Physician Urology 11/25/24
--- OUTSIDE RECORDS SUMMARY | 2025-03-18 06:37 | XMS_ITS | Continuity of Care Document ---
Author Organization [facility] Address [address] [place] [address] Phone Care Team Providers Care Entrepreneurial Finance Professor Name Role Phone Nathan Garcia Unavailable Unavailable [...] Diagnoses Date Provider Providers Copied on Encounter [facility], [id number] [place] [address] [address], [place], [place], [id number], [place] tel:[phone] [facility] No Information Mar-3 0-201 0 Radha Evans. [address] , [address], [place], [address], [place]. tel:[phone] [facility], [address], [place], [place], [id number], [place] tel:[phone] [facility] No Information 2 2-201 0 Radha Evans. [address] , [address], [place], [address], [place]. tel:[phone] Office/outpat ient Visit, Est [facility], [address], [place], [place], [id number], [place] tel:[phone] [facility] No Information 6-201 0 Radha Evans. [address] , [address], [place], [place], [facility], [place]. tel:[phone] [facility], [address], [place], [place], [id number], [place] tel:[phone] [facility] No Information 2 5-200 7 Radha Evans. [address] , [address], [place], [place], [facility], [place]. tel:[phone] [facility], [address] [place] [address] [address], [place], [place], [address], [place] tel:[phone] [facility] No Information 1 1-200 7 Doimelissa Edalex. [address], [place], [place], [facility], [place]. tel:[phone] [facility], [address], [place], [place], [address], [place] tel:[phone] [facility] No Information February-1 0-200 7 Radha Edalex. [address], [address], [place], [facility], [place]. tel:[phone] [facility], [address] [place] [address] [address], [place], [place], [address], [place] tel:[phone] [facility] No Information 2 8-200 7 Radha Evans. [address], [place], [facility], [place]. tel:[phone] Referring Provider: Nathan Grubbs, [address], [place], [address]. tel:[phone] Family History Family Member Type Diagnosis Age At Onset No Information Payers Payer name Insurance type Covered alliance party ID Authoriza tion(s) No Information Social History [...]
--- OUTSIDE RECORDS SUMMARY | 2025-03-18 06:37 | XMS_ITS | Referral Summary ---
Author Organization [facility] [address] [facility] lt Address [address] [place] [address] Care Team Providers Care Plug Maker Name Role Phone Mary Sharpe NP Primary Care Provider [phone] Adelina Mac MD Unavailable [phone] Dagoberto Carmona MD Unavailable [phone] Encounters Date Type Department Care Team Description 03/06/2025 Orders Only [facility] Primary Care at [address] [address] Provider, MD Carlotta from Last 3 Months Allergies Active Allergy Reactions Criticality Noted Date [...] 11/25/2024 Assessment & Plan (11/25/2024 11:00 AM PRINT SHOP CHIEF CLERK): Improved with otc magnesium daily. Continue magnesium [...] treated Assessment & Plan (08/28/2023 3:37 PM PRINT SHOP CHIEF CLERK): Can only sleep for about 4 hours and wakes for bladder; feels she sleeps more than she should, wakes up with headaches and takes afternoon naps Encouraged patient to continue with biphasic sleep schedule; will refer to sleep Medicine for morning headaches which may be consistent with sleep apnea Urge incontinence of urine 09/05/2021 Assessment & Plan (11/25/2024 10:59 AM PRINT SHOP CHIEF CLERK): Stable. Followed by urologist - Dr. Carmona, - on oxybutynin xl Assessment & Plan (02/22/2024 8:27 PM CDT): Chronic. Controlled. Occasional stress leakage. Continue oxybutynin Assessment & Plan (08/28/2023 3:37 PM PRINT SHOP CHIEF CLERK): Goes to the bathroom every 4 hours; [...] management Assessment & Plan (09/05/2021 4:30 PM PRINT SHOP CHIEF CLERK): Stable, well controlled Continue oxybutynin 10 mg daily Mild persistent asthma without complication 06/2021 Assessment & Plan (11/25/2024 11:11 AM PRINT SHOP CHIEF CLERK): Restart flonase. Will try a different inhaler. Problem is cost of preventative inhaler. She was given arnuity. Will try advair/ wixela. Assessment & Plan (02/22/2024 8:27 PM CDT): Chronic. Controlled. Uses Arnuity seasonally when allergies causes to flare. Monitor. Continue prn albuterol Assessment & Plan (08/28/2023 3:37 PM PRINT SHOP CHIEF CLERK): Stable, well controlled; rare use of inhaler [...] daily Assessment & Plan (09/05/2021 4:28 PM PRINT SHOP CHIEF CLERK): Stable, well controlled; symptoms improved with use [...] Morbid obesity with BMI of 40.0-44.9, adult ([facility]) 08/18/2019 Assessment & Plan (11/26/2024 9:20 PM PRINT SHOP CHIEF CLERK): BMI Follow-up includes: education provided. Assessment & Plan (02/22/2024 8:29 PM CDT): Chronic. Suboptimally controlled. Slowly get back into exercising as able not that ankle better. Watch diet. monitor Assessment & Plan (08/28/2023 3:37 PM PRINT SHOP CHIEF CLERK): Stable, working on meal replacement; eats light [...] week Assessment & Plan (09/12/2022 3:25 PM PRINT SHOP CHIEF CLERK): Not well controlled, recent increase in weight [...] changes Assessment & Plan (09/05/2021 4:29 PM PRINT SHOP CHIEF CLERK): Stable, not well controlled; weight is stable, with approximately 3 lb weight loss since last visit Patient has begun to work on her weight, going to focus on portion control and healthy dietary choices using sella plate to limit portions, healthy cooking at [...] p.r.n. Assessment & Plan (09/05/2021 4:29 PM PRINT SHOP CHIEF CLERK): Improved quality sleep, is able to reinitiate [...] sinuses Assessment & Plan (09/12/2022 3:25 PM PRINT SHOP CHIEF CLERK): Stable, well controlled Continue Astelin 1 spray [...] on file Legal Sex Female 6:33 AM PRINT SHOP CHIEF CLERK Gender Identity Not on file Sexual Orientation Not on file Last Filed Vital Signs Vital Sign Reading Time Taken Comments Blood Pressure 130/82 11/25/2024 10:45 AM PRINT SHOP CHIEF CLERK Pulse 67 11/25/2024 10:45 AM PRINT SHOP CHIEF CLERK Temperature 36.4 C (97.6 F) 11/25/2024 10:45 AM PRINT SHOP CHIEF CLERK Respiratory Rate 18 11/25/2024 10:4 5 AM PRINT SHOP CHIEF CLERK Oxygen Saturation 93% 12/26/2023 2:13 PM PRINT SHOP CHIEF CLERK Inhaled Oxygen Concentration - - Weight 106.4 kg (234 lb 9.6 oz) 025 10:45 AM PRINT SHOP CHIEF CLERK Height 156.2 cm (5' 1.5) 11/25/2024 10 :45 AM PRINT SHOP CHIEF CLERK Body Mass Index 43.61 11/25/2024 10:45 AM PRINT SHOP CHIEF CLERK Plan of Treatment Not on file Procedures [...] Body N/A Computed Tomogra phy Historical Provider IMG CT PROCEDURES Final R esult * XR Abdomen 1 View AP (03/04/2025 4:24 PM CDT) Anatomical Region Laterality Modality Body, Abdomen N/A Radiographic Mandy ging Historical Provider IMG XR PROCEDURES Final R esult * [place] [...] - GENERA [place] [id number] [address] Department [place] [address] from Last 3 Months or Most Recently Relevant to Health Maintenance Insurance MEDICARE [facility] Address: [facility] [address] [place] [address] [facility] MEDICARE SUPPLEMENT INSURANCE MEDICARE CIG MEDICARE SUPPLEMENT INSURANCE Care Teams Plug Maker Relationship Specialty Start Date End Date Mary Sharpe NP [address] [place] [address] PCP - General Family Medicine 11/25/24 Adelina Mac MD [address] [place] [address] Referring Physician Dermatology 11/25/24 Dagoberto Carmona MD [address] [place] [address] Consulting Physician Urology 11/25/24
--- OUTSIDE RECORDS SUMMARY | 2025-03-18 06:37 | XMS_ITS | Clinical Summary ---
Author Organization [facility] Administrative Offices Address [address] [place] [address] Care Team Providers Care Data Processing Specialist Name Role Phone Pawel Henderson MD Primary Care Provider Allergies No known active allergies Medications CALCIUM [...] on file Legal Sex Female 6:03 AM CANVAS REPAIRER Gender Identity Not on file Sexual Orientation [...] 9:46 AM CDT Height 157.5 cm (5' 2) 06/22/2011 9:46 AM CDT Body Mass Index [...] Advance Directives For more information, please contact: [phone] * Full Code (Latest Code Status on File) Date Activated Date Inactivated Comments 06/22/2011 9:46 AM 06/23/2011 2:32 AM Care Teams Data Processing Specialist Relationship Specialty Start Date End Date Pawel Henderson MD PCP - General Family Practice 06/12/11
--- OUTSIDE RECORDS SUMMARY | 2025-03-18 06:37 | XMS_ITS | Continuity of Care Document ---
Author Organization [facility] Address [address] [place] [address] Phone Care Team Providers Care Food And Drug Research Scientist Name Role Phone Micky PT,MPT,ATC, Camron Unavailable Unavai lable Procedures Procedure Date Therapeutic Activities Neuromuscular Re-Ed Therapeutic Exercise Therapeutic Activities Neuromuscular Re-Ed Therapeutic Exercise Therapeutic Activities Neuromuscular Re-Ed Jul- Therapeutic Exercise Jul- Therapeutic Activities Neuromuscular Re-Ed Jul- Therapeutic Exercise Jul- Manual Therapy Therapeutic Activities Neuromuscular Re-Ed Jul- Therapeutic Exercise Jul- Manual Therapy Jul- Therapeutic Activities Neuromuscular Re-Ed Jul- Therapeutic Exercise Jul- Manual Therapy Therapeutic Activities Jul- Neuromuscular Re-Ed Jul- Therapeutic Exercise Jul- Manual Therapy Jul- Therapeutic Activities Jul- Neuromuscular Re-Ed Jul- Therapeutic Exercise Jul- Manual Therapy Jul- Therapeutic Activities Manual Therapy Jul- Neuromuscular Re-Ed Jul- Therapeutic Exercise Jul- Therapeutic Activities Jul- Neuromuscular Re-Ed Jul- Therapeutic Exercise Jul- Manual Therapy Jul- Therapeutic Activities Therapeutic Exercise Neuromuscular Re-Ed Therapeutic Activities Therapeutic Exercise Neuromuscular Re-Ed Therapeutic Activities Neuromuscular Re-Ed Therapeutic Exercise Therapeutic Activities Therapeutic Exercise Neuromuscular Re-Ed Therapeutic Activities Therapeutic Exercise Neuromuscular Re-Ed Doc neg elder mal no plan Therapeutic Activities Neuromuscular Re-Ed PT Evaluation Moderate Complexity Advance Directives Directive Yes / No Effective Date File Name No Information Encounters Encounter Description Practice Location Reason(s) For Visit Diagnoses Date Provider Providers Copied on Encounter [facility], [place], [place], [id number], tel:[phone] [place] No Information 2 [place], [place], [place]. [facility], [place], [place], [id number], tel:[phone] [place] No Information 2 [facility]. Referring Provider: H[address]to Singh [address] [facility] [address], [place], [address]. tel:[phone] [facility] [address], [place], [place], [address], tel:[phone] [place] No Information 2 [facility] [place] [place] Referring Provider: H[address]to [address] [facility] [address], [place], [address]. tel:[phone] [facility] [address], [place], [place], [address], tel:[phone] [place] No Information 2 [place] Referring Provider: Humberto Singh [address], [place], [address]. tel:[phone] [facility], [place], [place], [address], [place] tel:[phone] [place] No Information 2 [place]. , [place], [place]. Referring Provider: Humberto Singh [address], [place], [address]. tel:[phone] [facility], [address], [place], [place], [address], [place] tel:[phone] [place] No Information 2 We[place]. , [place], [place]. Referring Provider: Humberto Singh [address], [place], [address]. tel:[phone] [facility], [place], [place], [address], [place] tel:[phone] [place] No Information 2 [place]. , [place], [place]. Referring Provider: Humberto Singh [address], [place], [address]. tel:[phone] [facility], [place], [place], [address], [place] tel:[phone] [place] No Information 2 [place]. , [place], [place]. Referring Provider: Humberto Singh [address], [place], [address]. tel:[phone] [facility], [place], [place], [address], [place] tel:[phone] [place] No Information 2 [place]. , [place], [place]. Referring Provider: Humberto Singh [address], [place], [address]. tel:[phone] [facility], [place], [place], [address], [place] tel:[phone] [place] No Information Oct-1 2-202 2 [place]. , [place], [place]. Referring Provider: H[address]to [address], [place], [address]. tel:[phone] [facility] [address], [place], [place], [address], [place] tel:[phone] [place] No Information Oct-1 0-202 2 [place]. , [place], [place]. Referring Provider: Humberto Singh [address], [place], [address]. tel:[phone] [facility], [address], [place], [place], [address], [place] tel:[phone] [place] No Information Oct-0 7-202 2 Weeks [place]. , [place], [place]. Referring Provider: Humberto [address], [place], [address]. tel:[phone] [facility], [place], [place], [address], [place] tel:[phone] [place] No Information Oct-0 5-202 2 [place]. , [place], [place]. Referring Provider: H[address]to [address], [place], [address]. tel:[phone] [facility], [place], [place], [address], [place] tel:[phone] [place] No Information Oct-0 3-202 2 Weeks [place]. , [place], [place]. Referring Provider: Humberto Singh [address], [place], [address]. tel:[phone] [facility], [place], [place], [address], [place] tel:[phone] [place] No Information Sep-3 0 2 [place], [place], . Referring Provider: Evens Powell [address] [facility] [address], [place], [address]. tel:[phone] [facility], [address], [place], [place], [address], tel:[phone] [place] No Information Sep-2 2 [facility]. Referring Provider: Humberto Singh [facility] [address], [place], [address]. tel:[phone] [facility], [address] [facility] [address], [place], [place], [address], tel:[phone] [place] No Information Sep-2 2 [facility]. Referring Provider: Humberto Singh [facility] [address], [place], [address]. tel:[phone] Family History Family Member Type Diagnosis Age At Onset No Information Payers Payer name Insurance type Covered republican ID Authorviolettea tidarion(s) Medicare [place] MB [id number] [place] [id number] Social History Type Description Quantity Date Captured [...]
== END 2025-03-18 06:33 | disposition home or self-care (01) ==
PROVIDERS: PCP Nurse Practitioner Family; Visit Provider Urology
DX: N13.2 Hydronephrosis with renal and ureteral calculous obstruction (principal); Z96.0 Presence of urogenital implants
CPT/HCPCS: 74018; 74176

== ENCOUNTER 2025-03-25 10:48 | Outpatient (CLI) | payer MEDICARE, SELFPAY ==
--- OUTSIDE RECORDS SUMMARY | 2025-03-25 10:59 | XMS_ITS | Referral Summary ---
Author Organization [facility] [address] [facility] lt Address [address] [place] [place] [address] Care Team Providers Care Taker Off Drying Kiln Name Role Phone Mary Sharpe NP Primary Care Provider [phone] Adelina Mac MD Unavailable [phone] Dagoberto Carmona MD Unavailable [phone] Encounters Date Type Department Care Team Description 03/18/2025 Orders Only [facility] Primary Care at [address] [address] Carlotta Bryant MD 03/06/2025 Orders Only [facility] Primary Care at [address] [address] Carlotta Bryant MD from Last 3 Months Allergies Active Allergy [...] 1 each 4 5 11/25/19 26 Active Active Problems Problem Noted Date Diagnosed Date Slow transit constipation 11/25/2024 Assessment & Plan (11/25/2024 11:00 AM RECTIFIER OPERATOR): Improved with otc magnesium daily. Continue magnesium [...] treated Assessment & Plan (08/28/2023 3:37 PM RECTIFIER OPERATOR): Can only sleep for about 4 hours and wakes for bladder; feels she sleeps more than she should, wakes up with headaches and takes afternoon naps Encouraged patient to continue with biphasic sleep schedule; will refer to sleep Medicine for morning headaches which may be consistent with sleep apnea Urge incontinence of urine 09/05/2021 Assessment & Plan (11/25/2024 10:59 AM RECTIFIER OPERATOR): Stable. Followed by urologist - Dr. Carmona, - on oxybutynin xl Assessment & Plan (02/22/2024 8:27 PM CDT): Chronic. Controlled. Occasional stress leakage. Continue oxybutynin Assessment & Plan (08/28/2023 3:37 PM RECTIFIER OPERATOR): Goes to the bathroom every 4 hours; [...] management Assessment & Plan (09/05/2021 4:30 PM RECTIFIER OPERATOR): Stable, well controlled Continue oxybutynin 10 mg daily Mild persistent asthma without complication 06/2021 Assessment & Plan (11/25/2024 11:11 AM RECTIFIER OPERATOR): Restart flonase. Will try a different inhaler. Problem is cost of preventative inhaler. She was given arnuity. Will try advair/ wixela. Assessment & Plan (02/22/2024 8:27 PM CDT): Chronic. Controlled. Uses Arnuity seasonally when allergies causes to flare. Monitor. Continue prn albuterol Assessment & Plan (08/28/2023 3:37 PM RECTIFIER OPERATOR): Stable, well controlled; rare use of inhaler [...] daily Assessment & Plan (09/05/2021 4:28 PM RECTIFIER OPERATOR): Stable, well controlled; symptoms improved with use [...] Morbid obesity with BMI of 40.0-44.9, adult ([facility]) 08/18/2019 Assessment & Plan (11/26/2024 9:20 PM RECTIFIER OPERATOR): BMI Follow-up includes: education provided. Assessment & Plan (02/22/2024 8:29 PM CDT): Chronic. Suboptimally controlled. Slowly get back into exercising as able not that ankle better. Watch diet. monitor Assessment & Plan (08/28/2023 3:37 PM RECTIFIER OPERATOR): Stable, working on meal replacement; eats light [...] week Assessment & Plan (09/12/2022 3:25 PM RECTIFIER OPERATOR): Not well controlled, recent increase in weight [...] changes Assessment & Plan (09/05/2021 4:29 PM RECTIFIER OPERATOR): Stable, not well controlled; weight is stable, [...] p.r.n. Assessment & Plan (09/05/2021 4:29 PM RECTIFIER OPERATOR): Improved quality sleep, is able to reinitiate [...] sinuses Assessment & Plan (09/12/2022 3:25 PM RECTIFIER OPERATOR): Stable, well controlled Continue Astelin 1 spray [...] on file Legal Sex Female 6:33 AM RECTIFIER OPERATOR Gender Identity Not on file Sexual Orientation Not on file Last Filed Vital Signs Vital Sign Reading Time Taken Comments Blood Pressure 130/82 11/25/2024 10:45 AM RECTIFIER OPERATOR Pulse 67 11/25/2024 10:45 AM RECTIFIER OPERATOR Temperature 36.4 C (97.6 F) 11/25/2024 10:45 AM RECTIFIER OPERATOR Respiratory Rate 18 11/25/2024 10:4 5 AM RECTIFIER OPERATOR Oxygen Saturation 93% 12/26/2023 2:13 PM RECTIFIER OPERATOR Inhaled Oxygen Concentration - - Weight 106.4 kg (234 lb 9.6 oz) 025 10:45 AM RECTIFIER OPERATOR Height 156.2 cm (5' 1.5) 11/25/2024 10 :45 AM RECTIFIER OPERATOR Body Mass Index 43.61 11/25/2024 10:45 AM RECTIFIER OPERATOR Plan of Treatment Not on file Procedures Procedure Name Priority Date/Time Associated Diagnosis Comments XR ABDOMEN AP 1 VIEW Schedule Routine, Read Routine (OP Routine) 03/18/2025 10:[address] ABDOMEN PELVIS WO CONTRAST Schedule Routine, [...] Recently Relevant to Health Maintenance Results * XR Abdomen 1 View AP (03/18/2025 10:34 AM CDT) Anatomical Region Laterality Modality Body, Abdomen N/A Radiographic Mandy ging Historical Provider MD ROSE XR PROCEDURES Final R esult * CT Abdomen Pelvis WO Contrast (03/04/2025 4:26 PM CDT) Anatomical Region Laterality Modality Body N/A Computed Tomogra phy Historical Provider IMLucy CT PROCEDURES Final R esult * XR [...] - GENERA L ORDERABLES Final Result AMEE [id number] [address] Department [place] [address] from Last 3 Months or Most Recently Relevant to Health Maintenance Insurance MEDICARE [facility] MEDICARE SUPPLEMENT INSURANCE MEDICARE CIG MEDICARE SUPPLEMENT INSURANCE Care Teams Taker Off Drying Kiln Relationship Specialty Start Date End Date Mary Sharpe NP [address] [place], [place] [id number] PCP - General Family Medicine 11/25/24 Adelina Mac MD [address] [place] [address] Referring Physician Dermatology 11/25/24 Dagoberto Carmona MD [address] [place] [address] Consulting Physician Urology 11/25/24
--- OUTSIDE RECORDS SUMMARY | 2025-03-25 10:59 | XMS_ITS | Clinical Summary ---
Author Organization [facility] [place] [address] [facility] lt Address [address] [place] [address] Care Team Providers Care Aviation Survival Technician Name Role Phone Mary Sharpe NP Primary Care Provider [phone] Adelina Mac MD Unavailable [phone] Dagoberto Carmona MD Unavailable [phone] Allergies Active Allergy Reactions Criticality Noted [...] 11/25/2024 Assessment & Plan (11/25/2024 11:00 AM SAP PLANT MAINTENANCE CONSULTANT): Improved with otc magnesium daily. Continue magnesium [...] treated Assessment & Plan (08/28/2023 3:37 PM SAP PLANT MAINTENANCE CONSULTANT): Can only sleep for about 4 hours and wakes for bladder; feels she sleeps more than she should, wakes up with headaches and takes afternoon naps Encouraged patient to continue with biphasic sleep schedule; will refer to sleep Medicine for morning headaches which may be consistent with sleep apnea Urge incontinence of urine 09/05/2021 Assessment & Plan (11/25/2024 10:59 AM SAP PLANT MAINTENANCE CONSULTANT): Stable. Followed by urologist - Dr. Carmona, - on oxybutynin xl Assessment & Plan (02/22/2024 8:27 PM CDT): Chronic. Controlled. Occasional stress leakage. Continue oxybutynin Assessment & Plan (08/28/2023 3:37 PM SAP PLANT MAINTENANCE CONSULTANT): Goes to the bathroom every 4 hours; [...] management Assessment & Plan (09/05/2021 4:30 PM SAP PLANT MAINTENANCE CONSULTANT): Stable, well controlled Continue oxybutynin 10 mg daily Mild persistent asthma without complication 06/2021 Assessment & Plan (11/25/2024 11:11 AM SAP PLANT MAINTENANCE CONSULTANT): Restart flonase. Will try a different inhaler. Problem is cost of preventative inhaler. She was given arnuity. Will try advair/ wixela. Assessment & Plan (02/22/2024 8:27 PM CDT): Chronic. Controlled. Uses Arnuity seasonally when allergies causes to flare. Monitor. Continue prn albuterol Assessment & Plan (08/28/2023 3:37 PM SAP PLANT MAINTENANCE CONSULTANT): Stable, well controlled; rare use of inhaler [...] daily Assessment & Plan (09/05/2021 4:28 PM SAP PLANT MAINTENANCE CONSULTANT): Stable, well controlled; symptoms improved with use [...] Morbid obesity with BMI of 40.0-44.9, adult ([facility]) 08/18/2019 Assessment & Plan (11/26/2024 9:20 PM SAP PLANT MAINTENANCE CONSULTANT): BMI Follow-up includes: education provided. Assessment & Plan (02/22/2024 8:29 PM CDT): Chronic. Suboptimally controlled. Slowly get back into exercising as able not that ankle better. Watch diet. monitor Assessment & Plan (08/28/2023 3:37 PM SAP PLANT MAINTENANCE CONSULTANT): Stable, working on meal replacement; eats light [...] week Assessment & Plan (09/12/2022 3:25 PM SAP PLANT MAINTENANCE CONSULTANT): Not well controlled, recent increase in weight [...] changes Assessment & Plan (09/05/2021 4:29 PM SAP PLANT MAINTENANCE CONSULTANT): Stable, not well controlled; weight is stable, [...] p.r.n. Assessment & Plan (09/05/2021 4:29 PM SAP PLANT MAINTENANCE CONSULTANT): Improved quality sleep, is able to reinitiate [...] sleep clinic Shortness of breath 08/18/2019 01/24/20 Assessment & Plan (08/18/2019 10:47 AM CDT): [...] sinuses Assessment & Plan (09/12/2022 3:25 PM SAP PLANT MAINTENANCE CONSULTANT): Stable, well controlled Continue Astelin 1 spray [...] Department Care Team Description 03/18/2025 Orders Only [facility] Primary Care at [address] [address] Carlotta Bryant MD 03/06/2025 Orders Only [facility] Primary Care at [address] [address] ProviderCarlotta MD from Last 3 Months Immunizations Immunization Administration [...] on file Legal Sex Female 6:33 AM SAP PLANT MAINTENANCE CONSULTANT Gender Identity Not on file Sexual Orientation Not on file Obstetrics History Last Filed Vital Signs Vital Sign Reading Time Taken Comments Blood Pressure 130/82 11/25/2024 10:45 AM SAP PLANT MAINTENANCE CONSULTANT Pulse 67 11/25/2024 10:45 AM SAP PLANT MAINTENANCE CONSULTANT Temperature 36.4 C (97.6 F) 11/25/2024 10:45 AM SAP PLANT MAINTENANCE CONSULTANT Respiratory Rate 18 11/25/2024 10:4 5 AM SAP PLANT MAINTENANCE CONSULTANT Oxygen Saturation 93% 12/26/2023 2:13 PM SAP PLANT MAINTENANCE CONSULTANT Inhaled Oxygen Concentration - - Weight 106.4 kg (234 lb 9.6 oz) 025 10:45 AM SAP PLANT MAINTENANCE CONSULTANT Height 156.2 cm (5' 1.5) 11/25/2024 10 :45 AM SAP PLANT MAINTENANCE CONSULTANT Body Mass Index 43.61 11/25/2024 10:45 AM SAP PLANT MAINTENANCE CONSULTANT Plan of Treatment Health Maintenance Due Date [...] Laterality Modality Body N/A Computed Tomogra phy us Historical Provider MD ROSE CT PROCEDURES Final [...] - GENERA L ORDERABLES Final Result AMEE [id number] Department [place] [address] from Last 3 Months or Most Recently Relevant to Health Maintenance Insurance MEDICARE [facility] MEDICARE SUPPLEMENT INSURANCE MEDICARE [facility] MEDICARE SUPPLEMENT INSURANCE Care Teams Aviation Survival Technician Relationship Specialty Start Date End Date Mary Sharpe NP [address] [place], [place] [id number] PCP - General Family Medicine 11/25/24 Adelina Mac MD [address] [place] [address] Referring Physician Dermatology 11/25/24 Dagoberto Carmona MD [address] [place] [address] Consulting Physician Urology 11/25/24
--- OUTSIDE RECORDS SUMMARY | 2025-03-25 10:59 | XMS_ITS | Clinical Summary ---
Author Organization [facility] Administrative Offices Address [address] [place] [address] Care Team Providers Care Channel Development Director Name Role Phone Pawel Henderson MD Primary Care Provider [phone] Allergies No known active allergies Medications CALCIUM [...] on file Legal Sex Female 6:03 AM LOW VISION THERAPIST Gender Identity Not on file Sexual Orientation [...] Advance Directives For more information, please contact: [phone] * Full Code (Latest Code Status on File) Date Activated Date Inactivated Comments 06/22/2011 9:46 AM 06/23/2011 2:32 AM Care Teams Channel Development Director Relationship Specialty Start Date End Date Pawel Henderson MD PCP - General Family Practice 06/12/11
--- NOTE | 2025-03-25 11:00 | ECG_ITS ---
Test Date: 2025-03-25 11:08:34 Measurements Intervals [place] Rate: 76 P: 23 IA: 206 QRS: 26 QRSD: 101 T: 37 QT: 369 QTc: 415 Interpretive Statements SINUS RHYTHM BASELINE ARTIFACT- I, II, III, AVR, AVL, AVF NORMAL ECG No previous ECG available for comparison Electronically Signed On 03-25-2025 11:38:04 CDT by Storm Grady D.O.
[2025-03-25 12:41] LABS: Add Urine Microscopic? YES; Appearance Urine Cloudy (Clear); Bacteria Urine None Seen /hpf; Bilirubin Urine Negative (Negative); Blood Urine 3+ (Negative); Color Urine Dark Yellow (Yellow); Glucose Urine UA Negative (Negative); Ketones Urine Trace mg/dL (Negative); Leukocyte Esterase Ur 2+ LEU/UL (Negative); Need Manual Microscopic Reviewed; Nitrate Urine Negative (Negative); Protein Urine 3+ mg/dL (Negative); RBC Urine >100 /hpf (0-2); Squamous Epithelial Cell Urine Moderate /hpf (Few); Urobilinogen Urine 0.2 mg/dL (<2.0); WBC Urine >100 /hpf (0-3)
== END 2025-03-25 10:49 | disposition home or self-care (01) ==
LOC: ANHSURGERY 10:51
PROVIDERS: PCP Nurse Practitioner Family; Visit Provider Urology
DX: Z01.818 Encounter for other preprocedural examination (principal); N20.1 Calculus of ureter; Z87.891 Personal history of nicotine dependence
CPT/HCPCS: 81001; 93005

== ENCOUNTER 2025-03-27 00:54 | Day surgery (SDC) | payer MEDICARE, SELFPAY ==
[2025-03-24 14:45] VITALS: BMI 42.7
--- NOTE | 2025-03-24 14:56 | PC.NURSE ---
Report to the Outpatient Waiting Room, entrance under the green pavilion located off [facility], at time ___0730am____ on date ___03/27/25 ____. Planned Procedure Time: _0930am .? Time changes happen often and if your time is changed the preop area will call you the afternoon before. - You and your visitor will be asked to self-screen and do not enter if you have any COVID symptoms. Please call surgeon if you need to reschedule. - A mask is optional within the hospital at this time. Patients may have clear liquids (water, carbonated beverages, clear teas, apple juice) until 3 hours prior to surgery with a maximum of 20 ounces. - No food from midnight until time of surgery and no smoking, or chewing tobacco (or any form of nicotine). No chewing gum, candy or mints. (0630am) Take only the following medications with a SIP of water on the morning of surgery: __Inhaler if needed DO NOT STOP ANY OF YOUR OTHER PRESCRIPTION MEDICATIONS PRIOR TO SURGERY EXCEPT THE FOLLOWING Hold all vitamins and supplements for 3 days per anesthesiologist. Medications to discontinue per physician None Date to take last dose____None Please no make-up, nail serbian, hairspray, perfume, deodorant, or body powder the day of surgery.? No jewelry (including any body piercings) or valuables the day of surgery, leave them at home.? Please take a shower or bath the night before, or the morning of, surgery with an antibacterial soap.? Wear comfortable, loose fitting clothing.? - Jewelry must be removed prior to entering the operating room.? Rings and piercings that are not removed may be cut off. - The hospital will not accept responsibility for valuables.? - Please leave all valuables, including medications, at home the day of surgery. If you are going home after surgery, a licensed stage driver must drive you home.? - NO public transportation without another adult if you receive anesthesia. - We recommend that an adult stay with you for 24 hours following discharge. - We also recommend that you do not drive, make important decision, drink alcoholic beverages, or take any drugs that were not prescribed by your health care provider for at least 24 hours after your discharge time. Follow any additional instructions given to you from your surgeon. Telephone instructions given to __Patient and asked if any additional questions and then verbalized understanding. Patient advised to call surgeon office or pre surgery nurse liaison [phone] if any additional questions.
[2025-03-27] VITALS (12 sets, daily range): BP systolic 132–185; BP diastolic 53–97; PULSE 61–80; RESP 15–22; TEMP 36.2–36.8; O2SAT 91–98
--- NOTE | ~2025-03-27 | XR_ITS ---
EXAMINATION: XR retrograde pyelo w/stent RT DATE: 03/27/2025 10:38 INDICATION: Right internal ureteral stent placement TECHNIQUE: Fluoroscopic images from a right internal ureteral stent placement are submitted for rubi chapman 18 seconds of fluoroscopy time. FINDINGS: There is a right double-J internal ureteral stent projecting in expected position, with proximal [place] loop at the level of the renal pelvis and distal loop in the pelvis within the bladder lumen. IMPRESSION: 1. Right internal ureteral stent placement. Please refer to real-time procedural findings for detai ls. Reviewed, dictated and finalized at location A. IMPRESSION: 1. Right internal ureteral stent placement. Please refer to real-time procedu ral findings for details.
--- OUTSIDE RECORDS SUMMARY | 2025-03-27 00:58 | XMS_ITS | Continuity of Care Document ---
Author Organization [facility] Address [address] [place] [address] Phone Care Team Providers Care Composite Assembler Name Role Phone Micky PT,MPT,ATC, Camron Unavailable Unavai lable Procedures Procedure Date Therapeutic Activities Neuromuscular Re-Ed Therapeutic Exercise Therapeutic Activities Neuromuscular Re-Ed Therapeutic Exercise Therapeutic Activities Neuromuscular Re-Ed Jul- Therapeutic Exercise Therapeutic Activities Neuromuscular Re-Ed Jul- [...] Jul- Therapeutic Exercise Jul- Therapeutic Activities Jul- Therapeutic Exercise Jul- Neuromuscular Re-Ed Jul- Manual Therapy Jul- Therapeutic Activities Therapeutic Exercise Neuromuscular Re-Ed Therapeutic Activities Neuromuscular Re-Ed Therapeutic Exercise Therapeutic Activities Neuromuscular Re-Ed Therapeutic Exercise Therapeutic Activities Neuromuscular Re-Ed Therapeutic Exercise Therapeutic Activities Therapeutic Exercise Neuromuscular Re-Ed Doc neg elder mal no plan PT Evaluation Moderate Complexity Therapeutic Activities Neuromuscular Re-Ed Advance Directives Directive Yes / No Effective Date File Name No Information Encounters Encounter Description Practice Location Reason(s) For Visit Diagnoses Date Provider Providers Copied on Encounter [facility], [place], [place], [id number], tel:[phone] [place] No Information 2 [place], [place], [place]. [facility], [place], [place], [id number], tel:[phone] [place] No Information 2 [facility]. Referring Provider: [address] [facility] [address], [place], [address]. tel:[phone] [facility] [address], [place], [place], [address], tel:[phone] [place] No Information 2 [facility] Referring Provider: [address] [facility] [address], [place], [address]. tel:[phone] [facility] [address], [place], [place], [address], tel:[phone] [place] No Information 2 [place]. Referring Provider: Humberto [address], [place], [address]. tel:[phone] [facility], [place], [place], [address], [place] tel:[phone] [place] No Information 2 Weeks Cam[place]. , [place], [place]. Referring Provider: H[address]to [address], [place], [address]. tel:[phone] [facility], [address], [place], [place], [address], [place] tel:[phone] [place] No Information 2 Weeks [place]. , [place], [place]. Referring Provider: H[address]to [address], [place], [address]. tel:[phone] [facility], [place], [place], [id number], [place] tel:[phone] [place] No Information 2 Weeks [place]. , [place], [place]. Referring Provider: H[address]to [address], [place], [address]. tel:[phone] [facility], [place], [place], [address], [place] tel:[phone] [place] No Information 2 Weeks [place]. , [place], [place]. Referring Provider: H[address]to [address], [place], [address]. tel:[phone] [facility], [place], [place], [address], [place] tel:[phone] [place] No Information 2 Weeks [place]. , [place], [place]. Referring Provider: H[address]to [address], [place], [address]. tel:[phone] [facility], [place], [place], [address], [place] tel:[phone] [place] No Information Oct-1 2-202 2 Weeks [place]. , [place], [place]. Referring Provider: [address], [place], [address]. tel:[phone] [facility] [address], [place], [place], [address], [place] tel:[phone] [place] No Information Oct-1 0-202 2 Weeks [place]. , [place], [place]. Referring Provider: [address], [place], [address]. tel:[phone] [facility], [address], [place], [place], [address], [place] tel:[phone] [place] No Information Oct-0 7-202 2 Weeks [place]. , [place], [place]. Referring Provider: [address], [place], [address]. tel:[phone] [facility], [place], [place], [address], [place] tel:[phone] [place] No Information Oct-0 5-202 2 Ossian [place]. , [place], [place]. Referring Provider: [address], [place], [address]. tel:[phone] [facility], [place], [place], [address], [place] tel:[phone] [place] No Information Oct-0 3-202 2 Weeks [place]. , [place], [place]. Referring Provider: Humberto Singh [address], [place], [address]. tel:[phone] [facility], [place], [place], [address], [place] tel:[phone] [place] No Information Sep-3 0 2 [place], [place], . Referring Provider: Evens Powell [address] [address], [place], [address]. tel:[phone] [facility], [address], [place], [place], [address], tel:[phone] [place] No Information Sep-2 2 [facility]. Referring Provider: Humberto Singh [facility] [address], [place], [address]. tel:[phone] [facility], [address] [facility] [address], [place], [place], [address], tel:[phone] [place] No Information Sep-2 2 [facility]. Referring Provider: Humberto Singh [facility] [address], [place], [address]. tel:[phone] Family History Family Member Type Diagnosis Age At Onset No Information Payers Payer name Insurance type Covered green party ID Authorviolettea tidarion(s) Medicare [place] MB [id number] [place] [id number] Social History Type Description Quantity Date Captured [...]
--- OUTSIDE RECORDS SUMMARY | 2025-03-27 00:58 | XMS_ITS | Referral Summary ---
Author Organization [facility] [place] [address] [facility] lt Address [address] [place] [address] Care Team Providers Care Geotechnical Engineer Name Role Phone Mary Sharpe NP Primary Care Provider [phone] Adelina Mac MD Unavailable [phone] Dagoberto Carmona MD Unavailable [phone] Encounters Date Type Department Care Team Description 03/18/2025 Orders Only [facility] Medical Group Primary Care at [address] [address] Carlotta Bryant MD 03/06/2025 Orders Only [facility] Medical Group Primary Care at [address] [address] Carlotta Bryant MD from Last [...] 11/25/2024 Assessment & Plan (11/25/2024 11:00 AM MEDICAL BILLING CLERK): Improved with otc magnesium daily. Continue [...] treated Assessment & Plan (08/28/2023 3:37 PM MEDICAL BILLING CLERK): Can only sleep for about 4 hours and wakes for bladder; feels she sleeps more than she should, wakes up with headaches and takes afternoon naps Encouraged patient to continue with biphasic sleep schedule; will refer to sleep Medicine for morning headaches which may be consistent with sleep apnea Urge incontinence of urine 09/05/2021 Assessment & Plan (11/25/2024 10:59 AM MEDICAL BILLING CLERK): Stable. Followed by urologist - Dr. Carmona, - on oxybutynin xl Assessment & Plan (02/22/2024 8:27 PM CDT): Chronic. Controlled. Occasional stress leakage. Continue oxybutynin Assessment & Plan (08/28/2023 3:37 PM MEDICAL BILLING CLERK): Goes to the bathroom every 4 [...] management Assessment & Plan (09/05/2021 4:30 PM MEDICAL BILLING CLERK): Stable, well controlled Continue oxybutynin 10 mg daily Mild persistent asthma without complication 06/2021 Assessment & Plan (11/25/2024 11:11 AM MEDICAL BILLING CLERK): Restart flonase. Will try a different inhaler. Problem is cost of preventative inhaler. She was given arnuity. Will try advair/ wixela. Assessment & Plan (02/22/2024 8:27 PM CDT): Chronic. Controlled. Uses Arnuity seasonally when allergies causes to flare. Monitor. Continue prn albuterol Assessment & Plan (08/28/2023 3:37 PM MEDICAL BILLING CLERK): Stable, well controlled; rare use of [...] daily Assessment & Plan (09/05/2021 4:28 PM MEDICAL BILLING CLERK): Stable, well controlled; symptoms improved with [...] Morbid obesity with BMI of 40.0-44.9, adult ([facility]) 08/18/2019 Assessment & Plan (11/26/2024 9:20 PM MEDICAL BILLING CLERK): BMI Follow-up includes: education provided. Assessment & Plan (02/22/2024 8:29 PM CDT): Chronic. Suboptimally controlled. Slowly get back into exercising as able not that ankle better. Watch diet. monitor Assessment & Plan (08/28/2023 3:37 PM MEDICAL BILLING CLERK): Stable, working on meal replacement; eats [...] week Assessment & Plan (09/12/2022 3:25 PM MEDICAL BILLING CLERK): Not well controlled, recent increase in [...] changes Assessment & Plan (09/05/2021 4:29 PM MEDICAL BILLING CLERK): Stable, not well controlled; weight is [...] p.r.n. Assessment & Plan (09/05/2021 4:29 PM MEDICAL BILLING CLERK): Improved quality sleep, is able to [...] sinuses Assessment & Plan (09/12/2022 3:25 PM MEDICAL BILLING CLERK): Stable, well controlled Continue Astelin 1 [...] on file Legal Sex Female 6:33 AM MEDICAL BILLING CLERK Gender Identity Not on file Sexual Orientation Not on file Last Filed Vital Signs Vital Sign Reading Time Taken Comments Blood Pressure 130/82 11/25/2024 10:45 AM MEDICAL BILLING CLERK Pulse 67 11/25/2024 10:45 AM MEDICAL BILLING CLERK Temperature 36.4 C (97.6 F) 11/25/2024 10:45 AM MEDICAL BILLING CLERK Respiratory Rate 18 11/25/2024 10:4 5 AM MEDICAL BILLING CLERK Oxygen Saturation 93% 12/26/2023 2:13 PM MEDICAL BILLING CLERK Inhaled Oxygen Concentration - - Weight 106.4 kg (234 lb 9.6 oz) 025 10:45 AM MEDICAL BILLING CLERK Height 156.2 cm (5' 1.5) 11/25/2024 10 :45 AM MEDICAL BILLING CLERK Body Mass Index 43.61 11/25/2024 10:45 AM MEDICAL BILLING CLERK Plan of Treatment Not on file [...] - GENERA L ORDERABLES Final Result AMEE [id number] Department [place] [address] from Last 3 Months or Most Recently Relevant to Health Maintenance Insurance [facility]ICARE [facility] MEDICARE SUPPLEMENT INSURANCE MEDICARE [employer] MEDICARE SUPPLEMENT INSURANCE Care Teams Geotechnical Engineer Relationship Specialty Start Date End Date Mary Sharpe NP [address] [place], [place] [id number] PCP - General Family Medicine 11/25/24 Adelina Mac MD [address] [place] [address] Referring Physician Dermatology 11/25/24 Dagoberto Carmona MD [address] [place] [address] Consulting Physician Urology 11/25/24
--- OUTSIDE RECORDS SUMMARY | 2025-03-27 00:58 | XMS_ITS | Clinical Summary ---
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
--- OUTSIDE RECORDS SUMMARY | 2025-03-27 00:58 | XMS_ITS | Clinical Summary ---
Author Organization [facility] [place] 155 [facility] lt Address [address] [place] [address] Care Team Providers Care Hvac Instructor Name Role Phone Mary Sharpe NP Primary Care Provider [phone] Adelina Mac MD Unavailable [phone] Dagoberto Carmona MD Unavailable [phone] Allergies Active Allergy Reactions Criticality Noted [...] Assessment & Plan (11/25/2024 11:00 AM SAP BW BI DEVELOPER): Improved with otc magnesium daily. Continue magnesium [...] Assessment & Plan (08/28/2023 3:37 PM SAP BW BI DEVELOPER): Can only sleep for about 4 hours and wakes for bladder; feels she sleeps more than she should, wakes up with headaches and takes afternoon naps Encouraged patient to continue with biphasic sleep schedule; will refer to sleep Medicine for morning headaches which may be consistent with sleep apnea Urge incontinence of urine 09/05/2021 Assessment & Plan (11/25/2024 10:59 AM SAP BW BI DEVELOPER): Stable. Followed by urologist - Dr. Carmona, - on oxybutynin xl Assessment & Plan (02/22/2024 8:27 PM CDT): Chronic. Controlled. Occasional stress leakage. Continue oxybutynin Assessment & Plan (08/28/2023 3:37 PM SAP BW BI DEVELOPER): Goes to the bathroom every 4 hours; [...] Assessment & Plan (09/05/2021 4:30 PM SAP BW BI DEVELOPER): Stable, well controlled Continue oxybutynin 10 mg daily Mild persistent asthma without complication 06/2021 Assessment & Plan (11/25/2024 11:11 AM SAP BW BI DEVELOPER): Restart flonase. Will try a different inhaler. Problem is cost of preventative inhaler. She was given arnuity. Will try advair/ wixela. Assessment & Plan (02/22/2024 8:27 PM CDT): Chronic. Controlled. Uses Arnuity seasonally when allergies causes to flare. Monitor. Continue prn albuterol Assessment & Plan (08/28/2023 3:37 PM SAP BW BI DEVELOPER): Stable, well controlled; rare use of inhaler [...] Assessment & Plan (09/05/2021 4:28 PM SAP BW BI DEVELOPER): Stable, well controlled; symptoms improved with use [...] Morbid obesity with BMI of 40.0-44.9, adult ([facility]) 08/18/2019 Assessment & Plan (11/26/2024 9:20 PM SAP BW BI DEVELOPER): BMI Follow-up includes: education provided. Assessment & Plan (02/22/2024 8:29 PM CDT): Chronic. Suboptimally controlled. Slowly get back into exercising as able not that ankle better. Watch diet. monitor Assessment & Plan (08/28/2023 3:37 PM SAP BW BI DEVELOPER): Stable, working on meal replacement; eats light [...] Assessment & Plan (09/12/2022 3:25 PM SAP BW BI DEVELOPER): Not well controlled, recent increase in weight [...] Assessment & Plan (09/05/2021 4:29 PM SAP BW BI DEVELOPER): Stable, not well controlled; weight is stable, [...] Assessment & Plan (09/05/2021 4:29 PM SAP BW BI DEVELOPER): Improved quality sleep, is able to reinitiate [...] Assessment & Plan (09/12/2022 3:25 PM SAP BW BI DEVELOPER): Stable, well controlled Continue Astelin 1 spray [...] Department Care Team Description 03/18/2025 Orders Only [facility] Medical Group Primary Care at [address] [address] Carlotta Bryant MD 03/06/2025 Orders Only [facility] Primary Care at [address] [address] ProviderCarlotta MD from Last 3 [...] file Legal Sex Female 6:33 AM SAP BW BI DEVELOPER Gender Identity Not on file Sexual Orientation Not on file Obstetrics History Last Filed Vital Signs Vital Sign Reading Time Taken Comments Blood Pressure 130/82 11/25/2024 10:45 AM SAP BW BI DEVELOPER Pulse 67 11/25/2024 10:45 AM SAP BW BI DEVELOPER Temperature 36.4 C (97.6 F) 11/25/2024 10:45 AM SAP BW BI DEVELOPER Respiratory Rate 18 11/25/2024 10:4 5 AM SAP BW BI DEVELOPER Oxygen Saturation 93% 12/26/2023 2:13 PM SAP BW BI DEVELOPER Inhaled Oxygen Concentration - - Weight 106.4 kg (234 lb 9.6 oz) 025 10:45 AM SAP BW BI DEVELOPER Height 156.2 cm (5' 1.5) 11/25/2024 10 :45 AM SAP BW BI DEVELOPER Body Mass Index 43.61 11/25/2024 10:45 AM SAP BW BI DEVELOPER Plan of Treatment Health Maintenance Due Date [...] - GENERA L ORDERABLES Final Result AMEE [id number] Department [place] [address] from Last 3 Months or Most Recently Relevant to Health Maintenance Insurance MEDICARE [facility] MEDICARE SUPPLEMENT INSURANCE MEDICARE [facility] MEDICARE SUPPLEMENT INSURANCE Care Teams Hvac Instructor Relationship Specialty Start Date End Date Mary Sharpe NP [address] [place], [place] [phone] PCP - General Family Medicine 11/25/24 Adelina Mac MD [address] [place] [address] Referring Physician Dermatology 11/25/24 Dagoberto Carmona MD [address] [place] [address] Consulting Physician Urology 11/25/24
--- OUTSIDE RECORDS SUMMARY | 2025-03-27 00:58 | XMS_ITS | Continuity of Care Document ---
Author Organization Formerly [facility] Address [address] [place] [address] Phone Care Team Providers Care Manager Terminal Name Role Phone Nathan Garcia Unavailable Unavailable [...] Diagnoses Date Provider Providers Copied on Encounter [facility], [id number] [place] [address] [address], [place], [place], [id number], [place] tel:[phone] [facility] No Information Mar-3 0-201 0 Radha Evans. [address] , [address], [place], [address], [place]. tel:[phone] [facility], [address], [place], [place], [id number], [place] tel:[phone] [facility] No Information 2 2-201 0 Radha Evans. [address] , [address], [place], [address], [place]. tel:[phone] Office/outpat ient Visit, Est [facility]ly [facility], [address], [place], [place], [id number], [place] tel:[phone] [facility] No Information 6-201 0 Radha Evans. [address] , [address], [place], [place], [facility], [place]. tel:[phone] [facility], [address], [place], [place], [id number], [place] tel:[phone] [facility] No Information 2 5-200 7 Radha Evans. [address] , [address], [place], [place], [facility], [place]. tel:[phone] [facility], [address] [place] [address] [address], [place], [place], [address], [place] tel:[phone] [facility] No Information 1 1-200 7 Doimelissa Edalex. [address], [address], [place], [facility], [place]. tel:[phone] [facility], [address], [place], [place], [id number], [place] tel:[phone] [facility] No Information February-1 0-200 7 Radha Edalex. [address], [place], [facility], [place]. tel:[phone] [facility], [address] [place] [address] [address], [place], [place], [id number], [place] tel:[phone] [facility] No Information 2 8-200 7 Radha Evans. [address], [place], [facility], [place]. tel:[phone] Referring Provider: Nathan Grubbs, [address], [place], [address]. tel:[phone] Family History Family Member Type Diagnosis Age At Onset No Information Payers Payer name Insurance type Covered libertarian ID Authoriza tion(s) No Information Social History [...]
[2025-03-27] MEDS: LACTATED RINGERS 1,000 ML 30 ML IV CONT ×2 (08:00→12:53)
--- NOTE | 2025-03-27 08:17 | WPDHPUPDATE1 ---
History and Physical Update Update Date/Time: 03/27/25 08:17 History and Physical has been reviewed, including an updated exam of the patient. There are NO changes in the patient's condition. Risks, benefits, and alternatives have been discussed and questions answered. Patient agrees to proceed with procedure. Proceed with cystoscopy, right retrograde, right ureteroscopy with stone extraction possible laser, stent exchange
--- NOTE | 2025-03-27 09:56 | WPDANESEPPF ---
Anes - Initial Pre Proc Eval Procedure: Operation Date: 03/27/25 09:30 Proposed Procedures p Cystoscopy, Right Retrograde Pyelogram, Right Ureteroscopy, Right Stone Extraction, Right Stent Exchange, Possible Holmium Laser - Rosendo Herrera MD Date/Time: 03/27/25 09:56 Surgeon: Rosendo Herrera MD Pre Op Diagnosis: right ureteral stone Patient Data Age: 74 Gender: F Height: 1.57 m Weight: 104.6 kg Last Vital Signs Temp 97.2 F L 03/27/25 08:00 Pulse 69 03/27/25 08:00 Resp 16 03/27/25 08:00 BP 150/67 H 03/27/25 08:00 Pulse Ox 94 03/27/25 08:00 O2 Del Method Room Air 03/27/25 08:00 Allergies Allergy/AdvReac Type Severity Reaction Status Date / Time shrimp Allergy Unknown NAUSEA Verified 03/24/25 15:03 Home Medications ?Medication ?Instructions ?Recorded ?Confirmed ?Type fluticasone furoate 100 2 inh inhalation PRN shortness of 08/15/22 03/24/25 History mcg/actuation blister powder for breath and weezing inhalation (Arnuity Ellipta) oxybutynin chloride 5 mg tablet 10 mg PO Q12H 08/15/22 03/24/25 History albuterol sulfate 90 mcg/actuation 2 inh inhalation Q8H PRN 03/24/25 03/24/25 History aerosol inhaler (Ventolin HFA) bronchospasm Patient hx anesthesia problems: none Family hx anesthesia problems: none Results Review: All pre-operative results and documents have been reviewed as part of the pre-operative evaluation. [facility] Past Medical History Medical History Abscess of right lower extremity Osteopenia after menopause Bone density scan April 2019 Obstructive sleep apnea Polysomnogram 2014 recommended CPAP of 6 Herpes zoster dermatitis 2008 Chronic allergic rhinitis Morbid obesity Chronic lower back pain Outpatient MRI May 2019 demonstrating mild spondylosis Urolithiasis Surgical History Surgical History Status post open reduction with internal fixation of fracture Right ankle February 2009 H/O colonoscopy with polypectomy X4 History of tonsillectomy and adenoidectomy Family History Family History Father , at 94 years old CHF (congestive heart failure) COPD (chronic obstructive pulmonary disease) Mother , at 58 years old Liver cancer Social History Social History Social History: The patient reports that she quit smoking in 2007. She denies any alcohol use or illicit substance use. She has been for 47 years. She has 2 adult children who are healthy. 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 Smoking packs per day: 1 Smoking cigarettes per day: 20.0 Years smoked: 40 Smoking pack-years: 40.00 Smoking status: Former smoker Tobacco type: cigarettes Second hand tobacco smoke exposure: Yes Smoking end date: 10/22/07 Alcohol intake: never Alcohol use details: rarely Substance use: never Substance use type: does not use Do You Feel Safe in your Home?: Yes Lack of Transportation: No Lack of Food: Never True Current Housing: I Have Housing Concerned About Future Housing: No Difficulty Paying Gas/Electric Bills: No Difficulty Paying for Meds: No Currently Unemployed: No Education: Master's Degree or Higher Difficulty w/ Childcare or Family Care: No Living arrangements: with family Additional living arrangements comments: Occupation/Education: retired Additional occupation/education comments: [employer] Gender identity (if verbalized by the patient): Female Spiritual care concerns: No Agree to blood products: No Anes - Eval Final PreProcedure Day of Procedure 03/27/25 09:56 Patient weight: morbidly obese Heart: regular rate and rhythm Lungs: clear to auscultation Airway: Mallampati scale class III Neurological: alert and oriented Last oral intake: >/= 8 hours ASA classification: III Emergent: no Anesthetic plan: proceed Anesthesia type and monitoring: general LMA and standard monitoring Results Review: All pre-operative results and documents have been reviewed as part of the pre-operative evaluation. Informed Consent: The patient's anesthetic plan and its attendant risks and benefits were discussed with the patient/family/POA. Questions were solicited and answers provided to the satisfaction of the patient/family/POA.
[2025-03-27] MEDS: ceFAZolin 2 GM/D5W 50 ML 2 GM/50 ML BAG IVPB (10:00)
[2025-03-27] MEDS: LIDOCAINE 2% GEL UROJET 10 ML PKG MUCOUS MEM (10:17)
--- NOTE | 2025-03-27 10:32 | S_PTH ---
PATIENT: Lorna Huntley LOC: [facility] U#:[id number] AGE/SX: 74/F ROOM: RE03/27/[address]: Rosendo Herrera, : 1950 BED: DIS: 03/27/2025 SPEC #: [id number] RECD: 03/27/25 11:09 STATUS: BRIAN CLARK #: [id number] AURY: 03/27/25 10:[address]: Javier,Rosendo Arroyo DEPT: [facility] Surgical RECD BY: Flaquita Gonzalez ENTERED: 03/27/25 11:10 SP TYPE: Surgical OTHR DR: Mary Sharpe, DOWNSTAIRS MAID Tissues: A - Stone Procedures: Gross Exam Level 1 Crystalline Analysis
--- NOTE | 2025-03-27 10:33 | P.OP_ITS ---
Procedure Note - Detailed Date of Procedure 03/27/25 Pre-op Diagnosis right ureteral stone Post-op Diagnosis Same Procedure Performed Cystoscopy, right retrograde, right ureteroscopy with stone extraction, right ureteral stent exchange 4.8 [place]ian contour Surgeon Rosendo Herrera MD Anesthesia General Description of Procedure Patient was taken the operative suite correctly identified. Once anesthesia was obtained she was placed in dorsal lithotomy position and prepped draped usual sterile fashion. Twenty-two Bel[place]ian scope was inserted the bladder. The prior stent was retrieved brought out the meatus. Sensor wire was placed. Ureteral access sheath was placed. Mini flexible ureteral scope was inserted. The stone was visualized the proximal ureter. Using escape basket was retrieved CIS. Reinspection revealed no residual stones. Pyelogram was then performed for confirmation placement of the stent. 4.8 [place] contour stent placed with the proximal end coiled in the renal pelvis and the distal end bladder. Bladder was drained. 2% viscous lidocaine was inserted into the urethra. Patient is taken recovery stable condition. Patient will follow-up in a week's time for stent removal. This completes dictation. Please send a copy of op note to my office Estimated Blood Loss 0 Drains Yes Packing No Pathology Yes Complications No immediate complications Condition Stable Disposition PACU
[2025-03-27] MEDS: fentaNYL CITRATE INJ (*CRX) 100 MCG/2 ML VIAL 25 MCG IV PUSH ×2 (11:14→11:30)
[2025-03-27] MEDS: oxyCODONE HCL (*CRX) 5 MG TAB IR PO (11:57)
[2025-03-27] MEDS: ONDANSETRON INJ 4 MG/2 ML VIAL IV PUSH (11:58)
[2025-03-27] MEDS: oxyBUTYnin CHLORIDE 5 MG TABLET PO (12:17)
== END 2025-03-27 14:00 | disposition home or self-care (01) ==
PROVIDERS: PCP Nurse Practitioner Family; Visit Provider Urology
PROC: (CPT 52352; principal; 2025-03-27 09:30)
DX: N20.1 Calculus of ureter (principal); Z87.891 Personal history of nicotine dependence; E66.01 Morbid (severe) obesity due to excess calories; Z68.41 Body mass index [BMI] 40.0-44.9, adult
CPT/HCPCS: 52332; 52352; 74420; 82365; 88300; A9270; C1769; C1894; C2617; J0690; J2003; J2405; J2704; J3010; J7120; Q9966